=== PATIENT | female | born 1970 | race Caucasian/White ===

== ENCOUNTER 2017-01-24 19:16 | Emergency (ER) | payer BC ==
[~2017-01-24] VITALS: Ht 160 cm; Wt 80.6 kg
[~2017-01-24 19:16] MED LIST: AMOX1TAB43 PO; ATV1 PO; CYM/60 PO; PRED10TA PO; SNG10 PO
[2017-01-24 19:22] VITALS: TEMP 37; Ht 160 cm; Wt 80.6 kg
[2017-01-24] MEDS ORDERED: LISD20CA PO (19:46)
[2017-01-24] MEDS ORDERED: ZOLP5TAB PO (19:48)
[2017-01-24] MEDS ORDERED: SODIUM CHLORIDE 0.9% 1000ML 1,000 ML IV ONE (19:54)
[2017-01-24] MEDS ORDERED: SODIUM CHLORIDE 0.9% 1000ML 1,000 ML IV STA (19:54)
--- NOTE | 2017-01-24 19:57 | EMERGENCY ROOM VISIT NOTE ---
History Report prepared by Ra: Andrew Pina Under the Supervision of: Dr. Supa Salcedo M.D. First contact with patient: 19:47 Chief Complaint: RECTAL BLEEDING Stated Complaint: RECTAL BLEEDING, BACK WENT OUT History of Present Illness The patient is a 46 year old female who presents to the Emergency Room with complaints of worsening rectal bleeding that started earlier today. She says that she had a cholecystectomy last year, and ever since then, has been having bouts of diarrhea on-and-off ever since then. The patient notes that 2 months ago, she started having consistent diarrhea and ever since then her stool has only been diarrhea. She says that she called her primary care physician 2 weeks ago because she started having blood in her stool. The patient's tests all came back normal. She says that starting earlier today, she has been having dripping bright red blood in her stool. The patient then decided to come here. She notes that she has a [facility] appointment set up for a few days from now. She adds that she has been having low back pain and vaginal pain with intercourse recently. She denies any rectal pain, or vaginal discharge or bleeding. Source of History: patient, spouse/significant other, friend Onset: Earlier today Position: other (rectum) Quality: other (dripping bright red blood) Timing: worsening Associated Symptoms: + back pain, + diarrhea Note: Associated symptoms: Vaginal pain with intercourse. Denies rectal pain, vaginal discharge or bleeding. Review of Systems See HPI for pertinent positives & negatives. A total of 10 systems reviewed and were otherwise negative. Past Medical & Surgical Medical Problems: (1) No chronic diseases present Old medical records were reviewed. Nurse's notes were reviewed and I agree with. Family History FH: heart disease FHx: cancer Hypertension Kidney disease Social History Smoking Status: Never Smoker Drug Use: none Marital Status: Housing Status: lives with family Current/Historical Medications Scheduled Lisdexamfetamine Dimesylate (Vyvanse), 20 MG PO DAILY Lorazepam (Lorazepam), 2 MG PO HS Montelukast Sod (Montelukast Sodium), 10 MG PO QPM Zolpidem Tartrate (Ambien), 2.5 MG PO HS Scheduled PRN Oxycodone Immediate Rel Tab (Roxicodone Ir), 1-2 TAB PO Q4H PRN for Severe Pain Allergies Coded Allergies: Latex (Unverified Allergy, Unknown, RASH, 01/24/17) Tramadol (Verified Allergy, Unknown, makes me nuts, 01/24/17) Physical Exam Vital Signs Date Time Temp Pulse Resp B/P (MAP) Pulse Ox O2 Delivery O2 Flow Rate FiO2 01/24/17 23:41 83 16 125/87 99 01/24/17 22:49 80 16 145/85 96 Room Air 01/24/17 20:53 86 16 136/88 98 Room Air 01/24/17 19:22 37.0 113 18 132/82 96 Room Air Physical Exam General: Well developed well nourished non ill appearing middle aged female complaining of back pain with movement, otherwise in no acute distress, breathing comfortably on room air. Normal speech HEENT: Normal cephalic atraumatic. Pupils are equal round and reactive to light. Extraocular movements are intact. Oropharynx is pink with moist mucous membranes. No swelling of the mouth lips or tongue. Neck: Supple with a midline trachea. No meningeal signs or stiffness, no JVD or bruits. No Stridor. Chest: Clear to auscultation bilaterally. No wheezes or rhonchi. No increased work of breathing. Heart: regular rate and rhythm. Abdomen: Soft nontender, nondistended without rebound guarding or rigidity. Extremities: No cyanosis clubbing or edema. No calf tenderness or assymetry. Normal sensation in legs and buttocks. Rectal (performed in presence of a nurse head school custodian): External: small opening near rectum with tiny bit of possible pus expressed, no blood, no fluctuance. Internal: no significant tenderness or fluctuance, normal tone, scant stool which was trace positive Guaiac. Spine/Back. Non tender to palpation. No CVA tenderness Skin: Good turgor without rashes. Neurologic exam: Cranial nerves two through 12 are intact. Motor and sensation are intact and symmetrical throughout. Medical Decision & Procedures ER Provider Diagnostic Interpretation: CT results as stated below per my review and radiologist interpretation: CT OF THE ABDOMEN AND PELVIS WITH CONTRAST CLINICAL HISTORY: Rectal bleeding. Back pain. COMPARISON STUDY: None. TECHNIQUE: Following IV administration of 94 mL of Optiray-320, axial images of the abdomen and pelvis were obtained from the lung bases to the proximal femurs. Images were reviewed in the axial, sagittal, and coronal planes. IV contrast was administered without complication. A dose lowering technique was utilized adhering to the principles of ALARA. CT DOSE: 539.17 mGy.cm FINDINGS: Lung bases are clear. Note is made of a 4.4 x 4.1 cm hypervascular segment 7 hepatic lesion. A linear central hypodensity suggests a scar. There is no biliary ductal dilatation status post cholecystectomy. The spleen, adrenal glands and pancreas are unremarkable. There is no hydronephrosis. An 8 mm hypodense left renal lesion is too small to characterize but likely benign. The caliber of small and large bowel is normal. Sensitivity for detection of mucosal lesions is diminished given CT technique. The appendix is normal. There is sigmoid diverticulosis without evidence for acute diverticulitis. There is no lymphadenopathy. No suspicious osseous lesion is present. There is marked disc space narrowing with osteophytosis at L5-S1. IMPRESSION: 1. No acute process within the abdomen or pelvis. Normal appendix. 2. Sigmoid diverticulosis without evidence for acute diverticulitis. Suboptimal evaluation for mucosal lesions given CT technique. 3. Marked disc space narrowing at L5-S1. 4. 4.4 x 4.1 cm hypervascular segment 7 lesion with suspected central scar. This likely reflects focal nodular hyperplasia. A hemangioma could appear similar although is considered less likely. This lesion is likely benign however a follow-up nonemergent MRI of the liver is recommended. Electronically signed by: Juan Ramon Stern M.D. 01/24/2017 10:06 PM Dictated Date/Time: 01/24/2017 9:58 PM Laboratory Results 01/24/17 20:05 Red Blood Count 4.78, Mean Corpuscular Volume 84.9, Mean Corpuscular Hemoglobin 30.1, Mean Corpuscular Hemoglobin Concent 35.5, Mean Platelet Volume 9.0, Neutrophils (%) (Auto) 60.2, Lymphocytes (%) (Auto) 28.8, Monocytes (%) (Auto) 5.3, Eosinophils (%) (Auto) 4.8, Basophils (%) (Auto) 0.7, Neutrophils # (Auto) 6.16, Lymphocytes # (Auto) 2.95, Monocytes # (Auto) 0.54, Eosinophils # (Auto) 0.49, Basophils # (Auto) 0.07 01/24/17 20:05 Test 01/24/17 20:05 01/24/17 20:10 White Blood Count 10.23 K/uL (4.8-10.8) Red Blood Count 4.78 M/uL (4.2-5.4) Hemoglobin 14.4 g/dL (12.0-16.0) Hematocrit 40.6 % (37-47) Mean Corpuscular Volume 84.9 fL (80-100) Mean Corpuscular Hemoglobin 30.1 pg (25-34) Mean Corpuscular Hemoglobin Concent 35.5 g/dl (32-36) Platelet Count 378 K/uL (130-400) Mean Platelet Volume 9.0 fL (7.4-10.4) Neutrophils (%) (Auto) 60.2 % Lymphocytes (%) (Auto) 28.8 % Monocytes (%) (Auto) 5.3 % Eosinophils (%) (Auto) 4.8 % Basophils (%) (Auto) 0.7 % Neutrophils # (Auto) 6.16 K/uL (1.4-6.5) Lymphocytes # (Auto) 2.95 K/uL (1.2-3.4) Monocytes # (Auto) 0.54 K/uL (0.11-0.59) Eosinophils # (Auto) 0.49 K/uL (0-0.5) Basophils # (Auto) 0.07 K/uL (0-0.2) RDW Standard Deviation 45.6 fL (36.4-46.3) RDW Coefficient of Variation 14.6 % (11.5-14.5) Immature Granulocyte % (Auto) 0.2 % Immature Granulocyte # (Auto) 0.02 K/uL (0.00-0.02) Prothrombin Time 9.8 SECONDS (9.0-12.0) Prothromb Time International Ratio 0.9 (0.9-1.1) Activated Partial Thromboplast Time 27.5 SECONDS (21.0-31.0) Partial Thromboplastin Ratio 1.1 Anion Gap 7.0 mmol/L (3-11) Est Creatinine Clear Calc Drug Dose 88.3 ml/min Estimated GFR () 102.5 Estimated GFR (Non- 88.4 BUN/Creatinine Ratio 16.6 (10-20) Calcium Level 9.6 mg/dl (8.5-10.1) Total Bilirubin 0.1 mg/dl (0.2-1) Direct Bilirubin < 0.1 mg/dl (0-0.2) Aspartate Amino Transf (AST/SGOT) 36 U/L (15-37) Alanine Aminotransferase (ALT/SGPT) 74 U/L (12-78) Alkaline Phosphatase 64 U/L (45-117) Total Protein 7.4 gm/dl (6.4-8.2) Albumin 3.8 gm/dl (3.4-5.0) Lipase 188 U/L (73-393) Human Chorionic Gonadotropin, Qual NEG (NEG) Urine Color YELLOW Urine Appearance CLEAR (CLEAR) Urine pH 5.5 (4.5-7.5) Urine Specific [place] 1.020 (1.000-1.030) Urine Protein NEG (NEG) Urine Glucose (UA) NEG (NEG) Urine Ketones NEG (NEG) Urine Occult Blood NEG (NEG) Urine Nitrite NEG (NEG) Urine Bilirubin NEG (NEG) Urine Urobilinogen NEG (NEG) Urine Leukocyte Esterase SMALL (NEG) Urine WBC (Auto) 1-5 /hpf (0-5) Urine RBC (Auto) 0-4 /hpf (0-4) Urine Hyaline Casts (Auto) 1-5 /lpf (0-5) Urine Epithelial Cells (Auto) >30 /lpf (0-5) Urine Bacteria (Auto) NEG (NEG) Laboratory studies as stated above per my review. Medications Administered Medications (Trade) Dose Ordered Sig/[place] Route Start Time Stop Time Status Last Admin Dose Admin Sodium Chloride 1,000 ml @ 999 mls/hr Q1H1M STAT IV 01/24/17 19:54 01/24/17 20:54 DC 01/24/17 20:12 999 MLS/HR Sodium Chloride 1,000 ml @ 150 mls/hr Q6H40M ONCE IV 01/24/17 19:54 01/25/17 00:03 DC 01/24/17 22:20 150 MLS/HR Ondansetron HCl (Zofran Inj) 4 mg NOW STAT IV 01/24/17 21:02 01/24/17 21:04 DC 01/24/17 21:06 4 MG Morphine Sulfate (MoRPHine SULFATE INJ) 2 mg NOW STAT IV 01/24/17 21:02 01/24/17 21:04 DC 01/24/17 21:07 2 MG Morphine Sulfate (MoRPHine SULFATE INJ) 2 mg NOW STAT IV 01/24/17 22:56 01/24/17 22:57 DC 01/24/17 23:02 2 MG Oxycodone HCl (Roxicodone Immediate Rel 5MG Home Pack) 1 homepack UD ONCE PO 01/24/17 23:30 01/24/17 23:31 DC 01/24/17 23:35 1 HOMEPACK ED Course 1950: Past medical records reviewed. The patient was evaluated in room A11B, and a complete history and physical examination were performed. 1953: Ordered NSS 1000 ml @ 150 mls/hr IV, NSS 1000 ml @ 999 mls/hr IV. 2101: Ordered Morphine Sulfate Inj 2 mg IV, Zofran Inj 4 mg IV. 2103: I reevaluated the patient and ordered pain medicine for her. 2231: I reevaluated the patient and she feels more comfortable. 2299: I performed a rectal exam on the patient in the presence of a female head school custodian. 2306: I discussed the patient with Dr. Dina Ramírez GI. 6: I reevaluated the patient and she is resting. The patient verbally expressed understanding and agreement of the treatment plan. The patient will be discharged. Medical Decision Differentials include, but are not limited to; GI bleed, infection, anemia, colitis, spinal lumbar disc disease. This patient comes in as described above. She has 2 complaints. First is she' s been having bloody diarrhea for about 2 weeks. The second is low back pain after bending over yesterday, there was no trauma. In regards to her bloody stool, she's been seen by her doctor scheduled to see a GI specialist this coming week. She says she had stool studies and blood work that has been unremarkable according to the patient. Her abdomen is benign here. IV access established and multiple blood tests was obtained. She was hydrated with IV normal saline. She was given morphine 2 milligrams IV and Zofran 4 milligrams IV for pain management in regards her back and she did receive additional IV morphine. She has no white count or fever to suggest infection. She's not significantly anemic and has a hemoglobin 14.4. She's had no acute electrolyte or metabolic abnormalities. She's had nothing suggest UTI. CAT scan of her abdomen does not show any acute findings. She has a likely scar in her liver which will need follow-up. She does have disc space narrowing at L5-S1. She's had nothing to suggest cauda equina syndrome. On rectal exam, she is a small opening near her rectum which may be is a small amount of pus but it's not fluctuant or tender. It's possible was could be a fistula is possible and it could be where she was bleeding from this area and could be an irritated area. I did discuss it with the slasher operator that she's supposed to see next week and he will follow up with her. The patient use sitz baths. I'm going to give her a small prescription for OxyIR for her back pain that she can use one or 2 pills every 4-6 hours as needed. She was encouraged to return if: increasing pain or bleeding, worsening of symptoms, numbness or weakness, change in bowel or bladder function, any new problems or concerns. She was happy with the plan and was discharged to home. Medication Reconcilliation Current Medication List: was personally reviewed by me Blood Pressure Screening Patient's blood pressure: Elevated blood pressure Blood pressure disposition: Elevated BP felt to be situational Consults Time Called: 2299 Consulting Physician: Dr. Dina MARX Returned Call: [phone] I discussed the patient with Dr. Dina MARX. Impression Primary Impression: Rectal bleed Additional Impression: Back pain Scribe Attestation The scribe's documentation has been prepared under my direction and personally reviewed by me in its entirety. I confirm that the note above accurately reflects all work, treatment, procedures, and medical decision making performed by me. Departure Information Dispostion Home / Self-Care Prescriptions Oxycodone Immediate Rel Tab (ROXICODONE IR) 5 Mg Tab 1-2 TAB PO Q4H Y for Severe Pain, #24 TAB Prov: Supa Salcedo M.D. 01/24/17 Referrals Adam Norman M.D.([facility]) (PCP) Patient Instructions My [facility] Additional Instructions Rest. Drink plenty of fluids. Warm sits baths. For pain, use ibuprofen 400 mg every 6 hours, take with food For more severe pain, use OxyIR 5 mg, one or 2 pills every 4-6 hours as needed OxyIR may make you drowsy do not take before drinking, driving, working OxyIR could also constipate you Return if: Increasing pain or bleeding, fever chills, worsening symptoms, any new problems or concerns. Problem Qualifiers
[2017-01-24 20:21] LABS: BASO % 0.7 %; BASO ABS # 0.07 K/uL (0-0.2); COMPLETE YES; EOS % 4.8 %; HEMATOCRIT 40.6 % (37-47); IG% 0.2 %; LYMPH % 28.8 %; LYMPH ABS # 2.95 K/uL (1.2-3.4); MEAN CELL VOLUME 84.9 fL (80-100); MEAN CORPUSCULAR HEMOGLOBIN 30.1 pg (25-34); MEAN CORPUSCULAR HGB CONC 35.5 g/dl (32-36); MONO % 5.3 %; NEUT % 60.2 %; PLATELET COUNT 378 K/uL (130-400); RED BLOOD COUNT 4.78 M/uL (4.2-5.4); WHITE BLOOD COUNT 10.23 K/uL (4.8-10.8)
[2017-01-24 20:24] LABS: URINE APPEARANCE CLEAR (CLEAR); URINE BILIRUBIN NEG (NEG); URINE COLOR YELLOW; URINE EPITHELIAL CELL AUTO >30 /lpf (0-5); URINE NITRITE NEG (NEG); URINE PH 5.5 (4.5-7.5); UROBILINOGEN NEG (NEG)
[2017-01-24 20:32] LABS: MANUAL MICROSCOPIC REQUIRED? NO; REVIEW REQ? NO
[2017-01-24 20:34] LABS: INR 0.9 (0.9-1.1); PARTIAL THROMBOPLASTIN RATIO 1.1; PROTHROMBIN TIME (PATIENT) 9.8 SECONDS (9.0-12.0)
[2017-01-24 20:43] LABS: ALT/SGPT 74 U/L (12-78); BLOOD UREA NITROGEN 13 mg/dl (7-18); BUN/CREATININE RATIO 16.6 (10-20); CALCIUM 9.6 mg/dl (8.5-10.1); CARBON DIOXIDE 26 mmol/L (21-32); CHLORIDE 107 mmol/L (98-107); GLUCOSE 92 mg/dl (70-99); POTASSIUM 3.8 mmol/L (3.5-5.1); PREG INTERNAL NEGATIVE QC NEG CLEAR BACKGROUND; PREG INTERNAL POSITIVE QC POS CONTROL LINE; SODIUM 140 mmol/L (136-145)
[2017-01-24 20:46] LABS: ALKALINE PHOSPHATASE 64 U/L (45-117); AST/SGOT 36 U/L (15-37)
[2017-01-24] MEDS ORDERED: MoRPHine SULFATE 2 MG/ML CARP IV STA ×2 (21:02→22:56)
[2017-01-24] MEDS ORDERED: ONDANSETRON INJ 2 MG/ML 2 ML VIAL IV STA (21:02)
[2017-01-24] MEDS ORDERED: OPTIRAY 320 IV PRN (21:15)
--- NOTE | 2017-01-24 22:07 | DIAGNOSTIC IMAGING REPORT ---
CT OF THE ABDOMEN AND PELVIS WITH CONTRAST CLINICAL HISTORY: Rectal bleeding. Back pain. COMPARISON STUDY: None. TECHNIQUE: Following IV administration of 94 mL of Optiray-320, axial images of the abdomen and pelvis were obtained from the lung bases to the proximal femurs. Images were reviewed in the axial, sagittal, and coronal planes. IV contrast was administered without complication. A dose lowering technique was utilized adhering to the principles of ALARA. CT DOSE: 539.17 mGy.cm FINDINGS: Lung bases are clear. Note is made of a 4.4 x 4.1 cm hypervascular segment 7 hepatic lesion. A linear central hypodensity suggests a scar. There is no biliary ductal dilatation status post cholecystectomy. The spleen, adrenal glands and pancreas are unremarkable. There is no hydronephrosis. An 8 mm hypodense left renal lesion is too small to characterize but likely benign. The caliber of small and large bowel is normal. Sensitivity for detection of mucosal lesions is diminished given CT technique. The appendix is normal. There is sigmoid diverticulosis without evidence for acute diverticulitis. There is no lymphadenopathy. No suspicious osseous lesion is present. There is marked disc space narrowing with osteophytosis at L5-S1. IMPRESSION: 1. No acute process within the abdomen or pelvis. Normal appendix. 2. Sigmoid diverticulosis without evidence for acute diverticulitis. Suboptimal evaluation for mucosal lesions given CT technique. 3. Marked disc space narrowing at L5-S1. 4. 4.4 x 4.1 cm hypervascular segment 7 lesion with suspected central scar. This likely reflects focal nodular hyperplasia. A hemangioma could appear similar although is considered less likely. This lesion is likely benign however a follow-up nonemergent MRI of the liver is recommended. Electronically signed by: Juan Ramon Stern M.D. 01/24/2017 10:06 PM Dictated Date/Time: 01/24/2017 9:58 PM
[2017-01-24] MEDS ORDERED: OXYC1TAB3 PO (23:13)
[2017-01-24] MEDS ORDERED: OXYCODONE IR HOME PACK PO ONE (23:30)
[2017-01-24 23:41] VITALS: BP 125/87; PULSE 83; O2SAT 99
== END 2017-01-24 23:42 | disposition home or self-care (01) ==
LOC: C.EDB 19:17 → C.EDA 23:42
DX: K62.5 Hemorrhage of anus and rectum (principal); M54.9 Dorsalgia, unspecified; R19.7 Diarrhea, unspecified; Z90.49 Acquired absence of other specified parts of digestive tract; Z82.49 Family history of ischemic heart disease and other diseases of the circulatory system

== ENCOUNTER 2017-07-14 23:15 | Emergency (ER) | payer BC ==
[~2017-07-14] VITALS: Ht 160 cm; Wt 75.7 kg
[~2017-07-14 23:15] MED LIST changes: -AMOX1TAB43 PO; -CYM/60 PO; +LISD20CA PO; +OXYC1TAB3 PO; -PRED10TA PO; +ZOLP5TAB PO
[2017-07-14 23:19] VITALS: TEMP 36.5; Ht 160 cm; Wt 75.7 kg
[2017-07-14] MEDS ORDERED: MoRPHine SULFATE 4 MG/ML 1 ML CARP\\VIAL IV STA (23:25)
[2017-07-14] MEDS ORDERED: KETOROLAC TROMETHAMINE 30 MG/ML VIAL IV STA (23:25)
[2017-07-14] MEDS ORDERED: ONDANSETRON INJ 2 MG/ML 2 ML VIAL IV STA (23:25)
[2017-07-14] MEDS ORDERED: SODIUM CHLORIDE 0.9% 1000ML 1,000 ML IV STA (23:29)
[2017-07-14] MEDS ORDERED: OPTIRAY 320 IV PRN (23:45)
[2017-07-14] MEDS ORDERED: DULO-24 PO (23:48)
[2017-07-14] MEDS ORDERED: MULT-506 PO (23:48)
[2017-07-14 23:53] LABS: ISTAT CREATININE 0.7 mg/dl (0.6-1.3); ISTAT IONIZED CALCIUM 1.12 mmol/l (1.12-1.32); ISTAT POTASSIUM 3.7 mEq/L (3.3-5.0)
[2017-07-15] LABS: BASO % 0.3 %; BASO ABS # 0.05 K/uL (0-0.2); EOS ABS # 0.33 K/uL (0-0.5); HEMATOCRIT 38.6 % (37-47); HEMOGLOBIN 13.3 g/dL (12.0-16.0); IG# 0.04 K/uL (0.00-0.02); LYMPH % 19.8 %; MEAN CORPUSCULAR HEMOGLOBIN 29.3 pg (25-34); MEAN CORPUSCULAR HGB CONC 34.5 g/dl (32-36); MEAN PLATELET VOLUME 8.9 fL (7.4-10.4); MONO % 4.4 %; MONO ABS # 0.71 K/uL (0.11-0.59); NEUT % 73.3 %; NEUT ABS # 11.85 K/uL (1.4-6.5); PLATELET COUNT 366 K/uL (130-400); RED CELL DISTRIBUTION WIDTH CV 14.5 % (11.5-14.5); RED CELL DISTRIBUTION WIDTH SD 44.6 fL (36.4-46.3); WHITE BLOOD COUNT 16.18 K/uL (4.8-10.8)
[2017-07-15] MEDS ORDERED: HYDROmorphone INJ 1 MG/ML SYR IV STA
[2017-07-15 00:21] LABS: ALBUMIN 3.6 gm/dl (3.4-5.0); ALT/SGPT 33 U/L (12-78); BLOOD UREA NITROGEN 13 mg/dl (7-18); CARBON DIOXIDE 24 mmol/L (21-32); CREATININE 0.74 mg/dl (0.60-1.20); GLUCOSE 103 mg/dl (70-99); LIPASE 148 U/L (73-393); POTASSIUM 3.7 mmol/L (3.5-5.1); SODIUM 138 mmol/L (136-145)
[2017-07-15 00:24] LABS: ALKALINE PHOSPHATASE 74 U/L (45-117); AST/SGOT 14 U/L (15-37); TOTAL PROTEIN 7.8 gm/dl (6.4-8.2)
--- NOTE | 2017-07-15 01:13 | EMERGENCY ROOM VISIT NOTE ---
History First contact with patient: 23:22 Chief Complaint: ABDOMINAL PAIN Stated Complaint: LOWER BACK AND ABD Nursing Triage Summary: pt c/o left flank pain and abd pain. History of Present Illness The patient is a 47 year old female who presents to the Emergency Room with complaints of severe left flank pain and lower abdominal pain for the past day described as aching, 8 out of 10. Nothing makes it better or worse. Patient with some nausea. Patient denies chest pain, dyspnea, fever, chills, urinary symptoms, leg weakness. No injury to the area. No history kidney stones. Recent colonoscopy was negative per patient. Review of Systems See HPI for pertinent positives & negatives. A total of 10 systems reviewed and were otherwise negative. Past Medical/Surgical History Medical Problems: (1) No chronic diseases present Anxiety Family History FH: heart disease FHx: cancer Hypertension Kidney disease Social History Smoking Status: Current Every Day Smoker Drug Use: none Marital Status: Housing Status: lives with family Current/Historical Medications Scheduled Duloxetine HCl (Cymbalta), 1 CAP PO DAILY Lorazepam (Lorazepam), 2 MG PO HS Montelukast Sod (Montelukast Sodium), 10 MG PO QPM Multivitamin (Multivitamin), 1 TAB PO DAILY Physical Exam Vital Signs Date Time Temp Pulse Resp B/P (MAP) Pulse Ox O2 Delivery O2 Flow Rate FiO2 07/15/17 00:47 89 18 106/70 96 Room Air 07/14/17 23:19 36.5 108 22 124/87 97 Room Air Physical Exam VITALS: Vitals are noted on the nurse's note and reviewed by myself. Vital signs stable. GENERAL: White female who appears in pain, in no acute distress, nondiaphoretic , well-developed well-nourished. SKIN: The skin was without rashes, erythema, edema, or bruising. There is no tenting of the skin. Capillary reflex less than 2 seconds. HEAD: Normocephalic atraumatic. EARS: External auditory canals clear, tympanic membranes pearly lowe without erythema or effusion bilaterally. EYES: Pupils equal round and reactive to light and accommodation. Conjunctivae without injection, sclerae without icterus. Extraocular movements intact. NOSE: Patent, turbinates without inflammation or discharge. MOUTH: Mucous membranes moist. Pharynx without erythema or exudate. Uvula midline. Airway patent. Tongue does not deviate. NECK: Supple without nuchal rigidity. No lymphadenopathy. No thyromegaly. Cervical spine is nontender. No JVD. HEART: Regular rate and rhythm without murmurs gallops or rubs. LUNGS: Clear to auscultation bilaterally without wheezes, rales or rhonchi. No dullness to percussion. No retractions or accessory muscle use. ABDOMEN: Positive bowel sounds x 4. Normal tympanic percussion. Soft, tender to palpation lower abdomen, no CVA tenderness, protuberant, obese, no masses or organomegaly. Arias sign negative. No guarding or rebound tenderness. MUSCULOSKELETAL: No muscle atrophy, erythema, or edema noted. NEURO: Patient was alert and oriented to person place and time. Normal sensation to light and sharp touch. No focal neurological deficits. Medical Decision & Procedures Laboratory Results 07/14/17 23:35 Red Blood Count 4.54, Mean Corpuscular Volume 85.0, Mean Corpuscular Hemoglobin 29.3, Mean Corpuscular Hemoglobin Concent 34.5, Mean Platelet Volume 8.9, Neutrophils (%) (Auto) 73.3, Lymphocytes (%) (Auto) 19.8, Monocytes (%) (Auto) 4.4, Eosinophils (%) (Auto) 2.0, Basophils (%) (Auto) 0.3, Neutrophils # (Auto) 11.85, Lymphocytes # (Auto) 3.20, Monocytes # (Auto) 0.71, Eosinophils # (Auto) 0.33, Basophils # (Auto) 0.05 07/14/17 23:35 Test 07/14/17 23:35 07/14/17 23:41 07/15/17 00:40 White Blood Count 16.18 K/uL (4.8-10.8) Red Blood Count 4.54 M/uL (4.2-5.4) Hemoglobin 13.3 g/dL (12.0-16.0) Hematocrit 38.6 % (37-47) Mean Corpuscular Volume 85.0 fL (80-100) Mean Corpuscular Hemoglobin 29.3 pg (25-34) Mean Corpuscular Hemoglobin Concent 34.5 g/dl (32-36) Platelet Count 366 K/uL (130-400) Mean Platelet Volume 8.9 fL (7.4-10.4) Neutrophils (%) (Auto) 73.3 % Lymphocytes (%) (Auto) 19.8 % Monocytes (%) (Auto) 4.4 % Eosinophils (%) (Auto) 2.0 % Basophils (%) (Auto) 0.3 % Neutrophils # (Auto) 11.85 K/uL (1.4-6.5) Lymphocytes # (Auto) 3.20 K/uL (1.2-3.4) Monocytes # (Auto) 0.71 K/uL (0.11-0.59) Eosinophils # (Auto) 0.33 K/uL (0-0.5) Basophils # (Auto) 0.05 K/uL (0-0.2) RDW Standard Deviation 44.6 fL (36.4-46.3) RDW Coefficient of Variation 14.5 % (11.5-14.5) Immature Granulocyte % (Auto) 0.2 % Immature Granulocyte # (Auto) 0.04 K/uL (0.00-0.02) Est Creatinine Clear Calc Drug Dose 91.6 ml/min Estimated GFR () 111.8 Estimated GFR (Non- 96.5 BUN/Creatinine Ratio 17.9 (10-20) Calcium Level 9.0 mg/dl (8.5-10.1) Total Bilirubin 0.4 mg/dl (0.2-1) Direct Bilirubin < 0.1 mg/dl (0-0.2) Aspartate Amino Transf (AST/SGOT) 14 U/L (15-37) Alanine Aminotransferase (ALT/SGPT) 33 U/L (12-78) Alkaline Phosphatase 74 U/L (45-117) Total Protein 7.8 gm/dl (6.4-8.2) Albumin 3.6 gm/dl (3.4-5.0) Lipase 148 U/L (73-393) Human Chorionic Gonadotropin, Qual NEG (NEG) Bedside Hemoglobin 14.3 g/dl (12.0-16.0) Bedside Hematocrit 42 % (37-47) Bedside Sodium 140 mEq/L (135-144) Bedside Potassium 3.7 mEq/L (3.3-5.0) Bedside Chloride 105 mEq/L (101-112) Bedside Total CO2 23 mEq/l (24-31) Anion Gap 17.0 mmol/L (16-25) Bedside Blood Urea Nitrogen 13 mg/dl (7-18) Bedside Creatinine 0.7 mg/dl (0.6-1.3) Bedside Glucose (other) 108 mg/dl (70-99) Bedside Ionized Calcium (Power) 1.12 mmol/l (1.12-1.32) Urine Color YELLOW Urine Appearance CLEAR (CLEAR) Urine pH 8.5 (4.5-7.5) Urine Specific [place] > 1.045 (1.000-1.030) Urine Protein NEG (NEG) Urine Glucose (UA) NEG (NEG) Urine Ketones NEG (NEG) Urine Occult Blood NEG (NEG) Urine Nitrite NEG (NEG) Urine Bilirubin NEG (NEG) Urine Urobilinogen NEG (NEG) Urine Leukocyte Esterase NEG (NEG) Medications Administered Medications (Trade) Dose Ordered Sig/[place] Route Start Time Stop Time Status Last Admin Dose Admin Ketorolac Tromethamine (Toradol Inj) 30 mg NOW STAT IV 07/14/17 23:25 07/14/17 23:27 DC 07/14/17 23:42 30 MG Morphine Sulfate (MoRPHine SULFATE INJ) 4 mg NOW STAT IV 07/14/17 23:25 07/14/17 23:27 DC 07/14/17 23:41 4 MG Ondansetron HCl (Zofran Inj) 4 mg NOW STAT IV 07/14/17 23:25 07/14/17 23:27 DC 07/14/17 23:41 4 MG Sodium Chloride 1,000 ml @ 999 mls/hr Q1H1M STAT IV 07/14/17 23:29 07/15/17 00:29 DC 07/14/17 23:41 999 MLS/HR Hydromorphone HCl (Dilaudid Inj) 1 mg NOW STAT IV 07/15/17 00:00 07/15/17 00:02 DC 07/15/17 00:16 1 MG ED Course Prior records/ancillary studies reviewed. Triage Nursing notes reviewed. Additional history obtained from family. The patient's history was concerning for abdominal pain. Differential diagnosis: Etiologies such as appendicitis, diverticulitis, PUD, biliary pathology, UTI, pancreatitis, obstruction, mesenteric ischemia, aortic pathology, infections, inflammatory bowel disease, renal colic, as well as others were entertained. Physical examination findings: As above. ER treatment provided: morphine, Zofran, Dilaudid, IV fluids On reassessment the patient felt better. Diagnostics interpreted by me: The labs revealed leukocytosis. Stable H&H Imaging studies: CT ABDOMEN & PELVIS With Contrast: Comparison with 01/24/17 CT abdomen pelvis. Fluid within nondistended loops of small bowel and within stomach without bowel wall thickening or surrounding inflammation can be normal or can be seen with gastroenteritis in the right clinical setting. No appendicitis, inflammatory changes of bowel or bowel obstruction. Prior cholecystectomy. No free fluid. No free air. Aorta, liver, spleen, pancreas, and kidneys are unremarkable. 4.3 cm mass with hypodense central scar located at the posterior segment of the right hepatic lobe. This was described previously and is unchanged. Dilated left gonadal and parametrial vessels, nonspecific.. Radiologist: Lester Paul M.D. Exam and history seem consistent with abdominal pain could be related to early gastroenteritis. Patient felt better after being medicated as above. No other acute findings are noted on CT imaging. She is advised to rest, stay well- hydrated take medications as directed. She is advised follow-up family care in a few days here in the ER sooner for chest pain, difficulty breathing, abdominal pain, worsening signs or symptoms or as needed. Patient is tolerating fluids. She is ambulating without difficulties. By the evaluation outlined above emergent etiologies such as appendicitis, diverticulitis, PUD, biliary pathology, UTI, pancreatitis, obstruction, mesenteric ischemia, aortic pathology, inflammatory bowel disease, renal colic, as well as others were deemed relatively unlikely. The pt informed about the findings as listed above. All questions were answered and pleased with the treatment. Return instructions were outlined and the patient was discharged in stable condition. Outpatient prescription management: amalia lee Referral: The patient was referred back to their primary care physician for follow-up in 2 to 3 days for a recheck of the current condition. Case reviewed with my attending Medical Decision as above Medication Reconcilliation Current Medication List: was personally reviewed by me Blood Pressure Screening Patient's blood pressure: Normal blood pressure Impression Primary Impression: Acute gastroenteritis Additional Impression: Lower abdominal pain Departure Information Dispostion Home / Self-Care Condition GOOD Referrals No Doctor, Assigned (PCP) Patient Instructions My [facility] [employer] Additional Instructions DO NOT drive, drink alcohol, operate machinery, or perform dangerous activities today. You were given medications in the ER that can affect your ability to safely function or operate a vehicle. Ibuprofen(Motrin, Advil) may be used for fever or pain. Use 600mg every six hours as needed. Take with food. Avoid using more than 2400mg in a 24 hour period. Do not use 2400mg per day for more than three consecutive days without physician direction. Prolonged inappropriate use can lead to stomach upset or ulcers. (AND/OR) Acetaminophen(Tylenol) may be used for fever or pain. Use 1000mg every six hours as needed. Avoid using more than 3000mg in a 24 hour period. Bentyl 10 m tablet every 6 hours as needed for abdominal cramping. Zofran 4mg: Take one every six hours as needed for nausea. Avoid alcohol, operating machinery or dangerous equipment, working on ladders or roofs, DRIVING , or situations where being under the influence may be dangerous. Rest and drink plenty of fluids as tolerated. Slow sips of water or sports drinks are recommended instead of large amounts all at once. Continue current medications. Once your stomach is settled start with a clear liquid diet (jello, soup broth, etc.) and then advance as tolerated. You should avoid full, heavy meals for about 24 hrs from the time your symptoms resolved. Return to the ER immediately for worsening or persistent abdominal pain, vomiting, fevers, chest pains, difficulty breathing, black or bloody stools, worsening of your condition, or as needed. Follow up with your primary physician in 1-2 days for a recheck of your current condition. Problem Qualifiers
[2017-07-15] MEDS ORDERED: ONDANSETRON HOME PACK 4MG OD TAB PO ONE (01:15)
[2017-07-15] MEDS ORDERED: BENTYL HOME PACK 10 MG VIAL PO ONE (01:15)
[2017-07-15 01:29] VITALS: BP 131/92; PULSE 89; O2SAT 96
--- NOTE | 2017-07-15 06:52 | DIAGNOSTIC IMAGING REPORT ---
CT ABD/PELVIS IV CONTRAST ONLY CLINICAL HISTORY: severe lower abd pain COMPARISON STUDY: 01/24/2017 TECHNIQUE: Following the IV administration of 119 mL of [id number]-320, CT scan of the abdomen and pelvis was performed from the lung bases to the proximal femurs. Images are reviewed in the axial, sagittal, and coronal planes. IV contrast was administered without complication. A dose lowering technique was utilized adhering to the principles of ALARA. CT DOSE: 393.82 mGy.cm FINDINGS: Lower chest: There are minimal dependent atelectatic changes. Liver: There is a 4 cm hypervascular mass within the posterior aspect of the right lobe of the liver with apparent central scar. This remain similar to the preceding study. Gallbladder: Surgically absent Spleen: Normal in size and attenuation. Pancreas: Unremarkable. Adrenal glands: Unremarkable. Kidneys: There is a 7 mm left renal hypodensity, likely representing a cyst. There is no hydronephrosis. Bowel: There are no transition zones indicate bowel obstruction. The appendix appears normal. There are scattered colonic diverticula present. There is mild recto sigmoid wall thickening with subtle infiltration of the surrounding fat. This could indicate mild diverticulitis. Peritoneum: There is no intraperitoneal free air or abdominal ascites. Vasculature: The abdominal aorta is normal in course and caliber. Adenopathy: None. Pelvic viscera: There is a 17 mm left ovarian follicle. Skeletal structures: No destructive osseous lesions are seen. IMPRESSION: 1. 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 While nonspecific, the appearance favors focal nodular hyperplasia. An MRI could be obtained in follow-up for confirmation and further evaluation 2. No evidence of bowel obstruction. No evidence of free air 3. Colonic diverticulosis. Mildly thickened bowel loop at the rectosigmoid junction with minimal infiltration of the surrounding fat. This likely indicates mild diverticulitis. Clinical follow-up is advocated. This finding will be called as this was not described in the preliminary report. Electronically signed by: Juan Cortez M.D. 07/15/2017 6:51 AM Dictated Date/Time: 07/15/2017 6:43 AM
== END 2017-07-15 01:30 | disposition home or self-care (01) ==
LOC: C.EDB 23:16
DX: K52.9 Noninfective gastroenteritis and colitis, unspecified (principal); R10.30 Lower abdominal pain, unspecified; F17.200 Nicotine dependence, unspecified, uncomplicated; Z98.890 Other specified postprocedural states; Z82.49 Family history of ischemic heart disease and other diseases of the circulatory system; F41.9 Anxiety disorder, unspecified; Z79.899 Other long term (current) drug therapy

== ENCOUNTER 2022-11-12 18:21 | Inpatient (IN) ==
[2022-11-12] MEDS ORDERED: MoRPHine SULFATE 4 MG/ML 1 ML CARP\\VIAL IV STA ×2 (18:46→19:48)
[2022-11-12] MEDS ORDERED: ONDANSETRON INJ 2 MG/ML 2 ML VIAL IV STA (18:46)
--- NOTE | 2022-11-12 19:01 | Emergency Department Note ---
History of Present Illness General Chief complaint: Back Injury/Pain Stated complaint: SEVERE BACK PAIN Time Seen by Provider: 11/12/22 18:38 History of Present Illness Maximum Pain Intensity: 10 This is a 52-year-old female that presents to the emergency department via private vehicle with complaints of "severe back pain". The patient notes that she has been experiencing left-sided low back pain that radiates down her left leg for almost 3 weeks now. No known trauma or injury. She states that she notes progressive left low back pain and left leg weakness. She denies any bowel or bladder incontinence. No numbness or tingling in genital region. No infectious symptoms. No abdominal pain. No history of L-spine surgery. Patient notes that she is otherwise healthy. She is scheduled to see Dr. Goodman of spine tomorrow in the outpatient setting. She notes recent steroid injection of the spine this past . Home Medications Medication Instructions Recorded Confirmed Type buspirone 10 mg tablet 10 mg PO BID 03/22/19 11/12/22 History montelukast 10 mg tablet 10 mg PO QPM 03/22/19 11/12/22 History (Singulair) oxycodone 5 mg tablet 5 mg PO Q6H PRN pain #12 tabs 10/31/22 11/12/22 Rx ondansetron 4 mg disintegrating 4 mg PO Q6 PRN nausea and vomiting 11/01/22 11/12/22 Rx tablet #14 tabs bupropion HCl 150 mg tablet,12 hr 150 mg PO BID 11/12/22 11/12/22 History sustained-release cyclobenzaprine 10 mg tablet 10 mg PO HS PRN muscle spasm 11/12/22 11/12/22 History dextroamphetamine-amphetamine 10 10 mg PO QPM 11/12/22 11/12/22 History mg tablet dicyclomine 20 mg tablet 20 mg PO QID PRN Abdominal Pain 11/12/22 11/12/22 History gabapentin 100 mg capsule 100 mg PO TID 11/12/22 11/12/22 History lisdexamfetamine 40 mg capsule 40 mg PO DAILY 11/12/22 11/12/22 History (Vyvanse) melatonin 10 mg tablet 20 mg PO HS PRN Sleep 11/12/22 11/12/22 History multivitamin 1 tab PO DAILY 11/12/22 11/12/22 History omeprazole 20 mg capsule,delayed 20 mg PO DAILY 11/12/22 11/12/22 History release oxycodone-acetaminophen 10 mg-325 1 tab PO Q6H PRN Pain 11/12/22 11/12/22 History mg tablet quetiapine 50 mg tablet 100 mg PO HS 11/12/22 11/12/22 History valacyclovir 500 mg tablet 500 mg PO Q12H PRN as directed 11/12/22 11/12/22 History zolpidem 12.5 mg tablet,extended 12.5 mg PO HS PRN Sleep 11/12/22 11/12/22 History release,multiphase Allergies Allergy/AdvReac Type Severity Reaction Status Date / Time tramadol Allergy Severe SHORT OF Verified 11/12/22 19:19 BREATH hydromorphone [From Dilaudid] Allergy Intermediate RASH/VOMITI Verified 11/12/22 19:19 NG latex Allergy Intermediate ITCHING Verified 11/12/22 19:19 Past Med/Surg History Medical History Depression Insomnia Social History Smoking Status: Former smoker Second Hand Exposure: No; Do You Dip or Chew Tobacco: No; Tobacco Cessation Education Requested by Patient: No Hx Alcohol Use: No Hx Substance Use: No Preferred Language: Setswana Communication Ability: Effective Corporate Tutor Required: No Beliefs That Will Affect Care: None Current Living Situation: Spouse Current Living Situation Comment: lives in split level home with Other Information That Helps Us Care for You: No Feels Safe at Home: Yes Safety Concerns: Feels Safe At This Time Assistive Devices: Walker Review of Systems A total of 10 systems reviewed and were otherwise negative Physical Exam Vital Signs Vital Signs - 24 hr 11/12/22 18:30 11/12/22 19:29 11/12/22 19:29 Temperature 36.3 C L Temperature Source Temporal Artery Scan Pulse Rate 121 H Pulse Rate [Apical] 92 H Pulse Rate from SpO2 Sensor Pulse Rhythm [Apical] Regular Respiratory Rate 24 Respiratory Effort / Characteristics Non-Labored Spontaneous Respiratory Depth Normal Respiratory Pattern Regular Blood Pressure 134/88 Blood Pressure [Right Arm] 102/66 Blood Pressure Mean 103 Blood Pressure Mean [Right Arm] 78 Blood Pressure Position [Right Arm] Lying Pulse Oximetry 96 98 96 Oxygen Delivery Method Room Air Room Air Room Air Sepsis Recent Fever Within 48 Hours No Sepsis New/Unexplained Change in Mental Status No Sepsis Action Taken by Nursing No Action Required 11/12/22 19:40 11/12/22 19:33 Temperature Temperature Source Pulse Rate 89 93 H Pulse Rate [Apical] Pulse Rate from SpO2 Sensor 92 H Pulse Rhythm [Apical] Respiratory Rate 24 Respiratory Effort / Characteristics Respiratory Depth Respiratory Pattern Blood Pressure Blood Pressure [Right Arm] Blood Pressure Mean Blood Pressure Mean [Right Arm] Blood Pressure Position [Right Arm] Pulse Oximetry 99 Oxygen Delivery Method Sepsis Recent Fever Within 48 Hours Sepsis New/Unexplained Change in Mental Status Sepsis Action Taken by Nursing VITAL SIGNS - Vital signs and triage nursing notes were reviewed. Stable and afebrile. GENERAL - 52-year-old female appearing her stated age who is in no acute distress. Appears to be in pain. She is laying on her right side in the position on the examination bed. Communicates well with provider and answers questions appropriately. SKIN - Without rashes. No meningeal or petechial rash. There is a small amount of erythema just to the left of the mid L-spine region. Patient has this was secondary to ice/lidocaine patch. HEAD - NC/AT. EYES - Sclera anicteric. NECK - No nuchal rigidity. LUNGS - Chest wall symmetric without accessory muscle use, intercostals retractions, or central cyanosis. Normal vesicular breath sounds CTA B/L. No wheezes, rales, or rhonchi appreciated. CARDIAC - RRR with S1/S2. No murmur, rubs, or gallops appreciated. ABDOMEN - Abdominal contour normal without pulsations or visible masses. EXTREMITIES - No clubbing or peripheral cyanosis. Patient able to plantarflex and dorsiflex the bilateral feet/ankles. Decreased strength appreciated to the left lower extremity with associated pain. NEUROLOGIC -sensory intact throughout the lower extremities without deficit. PSYCH - A&O, and cooperates fully with examiner. Pt is very pleasant and interacts well with examiner. Course Administered Medications Acetaminophen (Acetaminophen 500 Mg Tab) 1,000 mg PO Q8H [facility] Stop: 12/12/22 22:38 Last Admin: 11/12/22 23:22 Dose: 1,000 mg Documented By: JORGE Bupropion HCl (Bupropion Sr 150 Mg Tabcr) 150 mg PO BID [facility] Stop: 12/12/22 22:38 Last Admin: 11/12/22 23:22 Dose: Not Given Documented By: JORGE Buspirone HCl (Buspirone 5 Mg Tab) 10 mg PO BID [facility] Stop: 12/12/22 22:38 Last Admin: 11/12/22 23:22 Dose: Not Given Documented By: JORGE Diazepam (Diazepam 2 Mg Tablet) 2 mg PO Q8H [facility] Stop: 12/12/22 22:38 Last Admin: 11/12/22 23:22 Dose: 2 mg Documented By: JORGE Docusate Sodium (Docusate Sodium 100 Mg Cap) 100 mg PO BID [facility] Stop: 12/12/22 22:38 Last Admin: 11/12/22 23:22 Dose: 100 mg Documented By: JORGE Gabapentin (Gabapentin 100 Mg Cap) 100 mg PO TID [facility] Stop: 12/12/22 22:38 Last Admin: 11/12/22 23:22 Dose: 100 mg Documented By: JORGE Montelukast Sodium (Montelukast Sodium 10 Mg Tablet) 10 mg PO QPM [facility] Stop: 12/12/22 22:38 Last Admin: 11/12/22 23:22 Dose: 10 mg Documented By: JORGE Quetiapine Fumarate (Quetiapine Fumarate 100 Mg Tablet) 100 mg PO HS [facility] Stop: 12/12/22 22:38 Last Admin: 11/12/22 23:21 Dose: 100 mg Documented By: JORGE Discontinued Medications Diazepam (Diazepam 2 Mg Tablet) 2 mg PO NOW ONE Stop: 11/12/22 20:06 Last Admin: 11/12/22 20:10 Dose: 2 mg Documented By: SAUL Morphine Sulfate (Morphine Sulfate 4 Mg/Ml 1 Ml Carp\\Vial) 4 mg IV NOW STA Stop: 11/12/22 18:47 Last Admin: 11/12/22 19:21 Dose: 4 mg Documented By: SAUL Morphine Sulfate (Morphine Sulfate 4 Mg/Ml 1 Ml Carp\\Vial) 4 mg IV NOW STA Stop: 11/12/22 19:49 Last Admin: 11/12/22 19:55 Dose: 4 mg Documented By: MICHELLE Ondansetron HCl (Ondansetron Inj 2 Mg/Ml 2 Ml Vial) 4 mg IV NOW STA Stop: 11/12/22 18:47 Last Admin: 11/12/22 19:21 Dose: 4 mg Documented By: SAUL Medical Decision Making Laboratory Data 11/12/22 19:33 11/12/22 19:33 Lab Results 11/12/22 11/12/22 Range/Units 19:33 19:33 WBC 12.44 H (4.8-10.8) K/ul RBC 5.37 (4.20-5.40) M/uL Hgb 15.0 (12.0-16.0) g/dl Hct 44.9 (37.0-47.0) % MCV 83.6 (80.0-100.0) fL MCH 27.9 (25.0-34.0) pg MCHC 33.4 (32.0-36.0) g/dL RDW Std Deviation 42.1 (36.4-46.3) fL RDW Coeff of Tony 13.8 (11.5-14.5) % Plt Count 347 (130-400) K/uL MPV 9.4 (9.4-12.4) fL Immature Gran % (Auto) 0.2 % Neut % (Auto) 66.4 % Lymph % (Auto) 27.8 % Lane % (Auto) 3.8 % Eos % (Auto) 1.1 % Baso % (Auto) 0.7 % Neut # (Auto) 8.25 H (1.40-6.50) K/uL Lymph # (Auto) 3.46 H (1.2-3.4) K/uL Lane # (Auto) 0.47 (0.11-0.59) K/uL Eos # (Auto) 0.14 (0-0.50) K/uL Baso # (Auto) 0.09 (0-0.2) K/uL Immature Gran # (Auto) 0.03 (0.01-0.20) K/uL Sodium 140 (136-145) mmol/L Potassium 3.7 (3.5-5.1) mmol/L Chloride 106 (98-107) mmol/L Carbon Dioxide 22 (21-32) mmol/L Anion Gap 12 H (3-11) BUN 24 H (6-23) mg/dl Creatinine 0.75 (0.6-1.2) mg/dl Est Cr Clr Drug Dosing Not Reportable Est GFR ( Amer) 106.2 ml/min Est GFR (Non-Af Amer) 91.6 ml/min BUN/Creatinine Ratio 32.0 H (10-20) Glucose 104 H (70-99(Fasting)) mg/dl Calcium 9.7 (8.6-10.3) mg/dl Magnesium 2.0 (1.7-2.4) mg/dl Total Bilirubin 0.3 (0.2-1.0) mg/dl AST 19 (13-39) U/L ALT 38 (7-52) U/L Alkaline Phosphatase 51 (34-104) U/L Total Protein 7.0 (6.0-8.3) gm/dl Albumin 4.3 (3.4-5.0) gm/dl Globulin 2.7 (2.5-4.0) gm/dl Albumin/Globulin Ratio 1.6 (0.9-2) Imaging Data Radiologist's Impression: Chest X-Ray 11/12/22 19:22 SINGLE VIEW CHEST CLINICAL HISTORY: Tachycardia. FINDINGS: An AP, portable, upright chest radiograph is compared to study dated 05/25/2016. The examination is degraded by portable technique and apical lordotic positioning. The cardiomediastinal silhouette is unremarkable. There is mild chronic elevation of the right hemidiaphragm. The lungs and pleural spaces are clear. No pneumothorax is seen. The bony thorax is grossly intact. Cholecystectomy clips are seen in the right upper quadrant. IMPRESSION: No active disease in the chest. ACT 112: Negative or not required by law. Electronically signed by: Chadwick Hong M.D. 11/12/2022 7:55 PM MDM Narrative Patient was seen and evaluated as above in room D06. Review was performed of triage nursing notes and vital signs. After obtaining a thorough history and physical examination the above work up was performed. Patient presents to us today with progressively worsening left-sided low back pain/lumbar radiculopathy. Although the patient appears to be in pain she overall clinically is well-appearing and nontoxic. No infectious symptoms. There is no urinary or bowel incontinence. No numbness or tingling in genital region. Options of care were discussed with the patient. IV access was established. Labs were drawn. There is mild leukocytosis 12.44. No anemia. No emergent metabolic disturbance. COVID testing negative. I do not believe that repeat MRI of the L-spine at this time is needed. I did review her previous MRI of the L-spine. I did discuss presentation with Dr. Goodman of spine. Plan will be for medical admission and potential surgical intervention tomorrow. Recommendation was to hold off on steroids preoperatively as the will be given near time of surgery/postsurgery. At the present time we will manage her pain. IV morphine was ordered for pain. IV Zofran was ordered for any potential nausea with the morphine. She tolerated this medicine well. She did require a second dose for pain control. Case discussed with the hospitalist service. Please refer to further documentation regarding her stay. In the evaluation and treatment of this patient the following differential jillian gnosis entertained: Fracture, dislocation, subluxation, cauda equina syndrome, AAA, diverticulitis, appendicitis, torsion, osteomyelitis, piriformis syndrome, strain, sprain, among others. Impression & Plan Left lumbar radiculopathy Discharge Plan Visit Data Chief Complaint: Back Injury/Pain Stated Complaint: SEVERE BACK PAIN ED Provider: Collin Morton ED Midlevel Provider: Byron Garcia Discharge Problem: Left lumbar radiculopathy Patient Disposition: Admitted As Inpatient Condition: Good Discharge Instructions Interventions: ED Discharge Assessment Last Done: 11/12/22 22:08
--- NOTE | 2022-11-12 19:56 | XRay Report ---
SINGLE VIEW CHEST CLINICAL HISTORY: Tachycardia. FINDINGS: An AP, portable, upright chest radiograph is compared to study dated 05/25/2016. The examin ation is degraded by portable technique and apical lordotic positioning. The cardiomediastinal silhou ette is unremarkable. There is mild chronic elevation of the right hemidiaphragm. The lungs and pleur al spaces are clear. No pneumothorax is seen. The bony thorax is grossly intact. Cholecystectomy clip s are seen in the right upper quadrant. IMPRESSION: No active disease in the chest. ACT 112: Negative or not required by law. Electronically signed by: Chadwick Hong M.D. 11/12/2022 7:55 PM
[2022-11-12] MEDS ORDERED: diazePAM 2 MG TABLET PO ONE (20:05)
--- NOTE | 2022-11-12 20:10 | History & Physical Report ---
Date of Service November 12, 2022 Assessment & Plan (1) Left lumbar radiculopathy: (2) Sciatica: (3) Low back pain: Plan: continue morphine, oxycodone, tylenol prn for pain (4) Insomnia: Plan: continue seroquel, zolpidem for insomnia (5) Depression: Plan: Continue Buproprion,buspirone. Admission and Anticipated Discharge Date Admission Date: Admit to [facility]. Vitals as per protocol Activity bedrest with bathroom privileges. Morphine, oxycodone, Tylenol as needed for pain. Dvt prophylaxis: continue scds await for preop ekg . Surgical consult Dr Goodman, cheri past midnight for procedure History of Present Illness Chief Complaint: Severe back pain for the past 2 weeks Primary Care Provider: Andressa Lees DO 52 year old female with medical history of depression on multiple meds, presented to the er with severe back pain , states it is a10/10. Patients pain symptoms were not relieved with oxycodone q 6 hourly. she has come to the er multiple times over the past 2 weeks . denies any bowel or bladder incontinence Lower back pain is radiating down to the left lower extremity. the symptoms have gotten worse and hence is been evaluated for procedure At time of evaluation in the er she was started on morphine to relieve her symptoms Denies any chestpain, shorness of breath . Allergies Allergy/AdvReac Type Severity Reaction Status Date / Time tramadol Allergy Severe SHORT OF Verified 11/12/22 19:19 BREATH hydromorphone [From Dilaudid] Allergy Intermediate RASH/VOMITI Verified 11/12/22 19:19 NG latex Allergy Intermediate ITCHING Verified 11/12/22 19:19 Home Medications Medication Instructions Recorded Confirmed Type buspirone 10 mg tablet 10 mg PO BID 03/22/19 11/12/22 History montelukast 10 mg tablet 10 mg PO QPM 03/22/19 11/12/22 History (Singulair) oxycodone 5 mg tablet 5 mg PO Q6H PRN pain #12 tabs 10/31/22 11/12/22 Rx ondansetron 4 mg disintegrating 4 mg PO Q6 PRN nausea and vomiting 11/01/22 11/12/22 Rx tablet #14 tabs bupropion HCl 150 mg tablet,12 hr 150 mg PO BID 11/12/22 11/12/22 History sustained-release cyclobenzaprine 10 mg tablet 10 mg PO HS PRN muscle spasm 11/12/22 11/12/22 History dextroamphetamine-amphetamine 10 10 mg PO QPM 11/12/22 11/12/22 History mg tablet dicyclomine 20 mg tablet 20 mg PO QID PRN Abdominal Pain 11/12/22 11/12/22 History gabapentin 100 mg capsule 100 mg PO TID 11/12/22 11/12/22 History lisdexamfetamine 40 mg capsule 40 mg PO DAILY 11/12/22 11/12/22 History (Vyvanse) melatonin 10 mg tablet 20 mg PO HS PRN Sleep 11/12/22 11/12/22 History multivitamin 1 tab PO DAILY 11/12/22 11/12/22 History omeprazole 20 mg capsule,delayed 20 mg PO DAILY 11/12/22 11/12/22 History release oxycodone-acetaminophen 10 mg-325 1 tab PO Q6H PRN Pain 11/12/22 11/12/22 History mg tablet quetiapine 50 mg tablet 100 mg PO HS 11/12/22 11/12/22 History valacyclovir 500 mg tablet 500 mg PO Q12H PRN as directed 11/12/22 11/12/22 History zolpidem 12.5 mg tablet,extended 12.5 mg PO HS PRN Sleep 11/12/22 11/12/22 History release,multiphase Past Med/Surg History Medical History (Updated 11/12/22 @ 20:21 by Yonathan Moore MD) Contusion of multiple sites Contusion of multiple sites Depression Fall Insomnia Social History Smoking Status: Never smoker Preferred Language: Austrian Feels Safe at Home: Yes Review of Systems Review of Systems: as noted in h/p rest reviewed as negative Physical Exam Physical Exam: Neuro: AAO times 3, PERRLA, HEENT: head normocephalic, moist mucus membranes CV: S1/S2,no murmurs Resp: Lungs CTA in all siegel. On RA GI: Abdomen soft non tender Musculoskeletal: severe back pain with pain radiating down to the left lower extremity Skin: (-) rashes , (-) erythema. Psych: anxious Results & Data Results & Data Vital Signs (Past 12 Hours) Vital Signs Temp Pulse Pulse Resp BP BP Pulse Ox 11/12/22 19:40 89 11/12/22 19:29 96 11/12/22 19:29 92 H 24 102/66 98 11/12/22 18:30 36.3 C L 121 H 134/88 96 O2 Del Method 11/12/22 19:40 11/12/22 19:29 Room Air 11/12/22 19:29 Room Air 11/12/22 18:30 Room Air Diagnostic Findings Impressions Chest X-Ray 11/12/22 19:22 SINGLE VIEW CHEST CLINICAL HISTORY: Tachycardia. FINDINGS: An AP, portable, upright chest radiograph is compared to study dated 05/25/2016. The examination is degraded by portable technique and apical lordotic positioning. The cardiomediastinal silhouette is unremarkable. There is mild chronic elevation of the right hemidiaphragm. The lungs and pleural spaces are clear. No pneumothorax is seen. The bony thorax is grossly intact. Cholecystectomy clips are seen in the right upper quadrant. IMPRESSION: No active disease in the chest. ACT 112: Negative or not required by law. Electronically signed by: Chadwick Hong M.D. 11/12/2022 7:55 PM Chest X-Ray 11/12/22 19:22 SINGLE VIEW CHEST CLINICAL HISTORY: Tachycardia. FINDINGS: An AP, portable, upright chest radiograph is compared to study dated 05/25/2016. The examination is degraded by portable technique and apical lordotic positioning. The cardiomediastinal silhouette is unremarkable. There is mild chronic elevation of the right hemidiaphragm. The lungs and pleural spaces are clear. No pneumothorax is seen. The bony thorax is grossly intact. Cholecystectomy clips are seen in the right upper quadrant. IMPRESSION: No active disease in the chest. ACT 112: Negative or not required by law. Electronically signed by: Chadwick Hong M.D. 11/12/2022 7:55 PM Medications Administered Home Medications Medication Instructions Recorded Confirmed Last Taken buspirone 10 mg tablet 10 mg PO BID 03/22/19 11/12/22 Unknown montelukast 10 mg tablet 10 mg PO QPM 03/22/19 11/12/22 Unknown (Singulair) oxycodone 5 mg tablet 5 mg PO Q6H PRN pain #12 tabs 10/31/22 11/12/22 Unknown ondansetron 4 mg disintegrating 4 mg PO Q6 PRN nausea and vomiting 11/01/22 11/12/22 Unknown tablet #14 tabs bupropion HCl 150 mg tablet,12 hr 150 mg PO BID 11/12/22 11/12/22 Unknown sustained-release cyclobenzaprine 10 mg tablet 10 mg PO HS PRN muscle spasm 11/12/22 11/12/22 Unknown dextroamphetamine-amphetamine 10 10 mg PO QPM 11/12/22 11/12/22 Unknown mg tablet gabapentin 100 mg capsule 100 mg PO TID 11/12/22 11/12/22 11/12/22 08:00 lisdexamfetamine 40 mg capsule 40 mg PO DAILY 11/12/22 11/12/22 Unknown (Vyvanse) melatonin 10 mg tablet 20 mg PO HS PRN Sleep 11/12/22 11/12/22 Unknown multivitamin 1 tab PO DAILY 11/12/22 11/12/22 Unknown omeprazole 20 mg capsule,delayed 20 mg PO DAILY 11/12/22 11/12/22 Unknown release oxycodone-acetaminophen 10 mg-325 1 tab PO Q6H PRN Pain 11/12/22 11/12/22 11/12/22 mg tablet quetiapine 50 mg tablet 100 mg PO HS 11/12/22 11/12/22 11/11/22 zolpidem 12.5 mg tablet,extended 12.5 mg PO HS PRN Sleep 11/12/22 11/12/22 Unknown release,multiphase Code Status & VTE Plan Code Status Patient is full code. VTE Prophylaxis Plan VTE Prophylaxis will be ordered: Yes (2) Sciatica Laterality: left Qualified Code(s): M54.32 - Sciatica, left side (3) Low back pain Back pain laterality: left Chronicity: acute Sciatica laterality: sciatica of left side Sciatica presence: with sciatica Qualified Code(s): M54.42 - Lumbago with sciatica, left side
[2022-11-12 20:23] LABS: Basophils # (auto) 0.09 K/uL (0-0.2); Basophils % (auto) 0.7 %; Eosinophils # (auto) 0.14 K/uL (0-0.50); Eosinophils % (auto) 1.1 %; Hematocrit (blood only) 44.9 % (37.0-47.0); Immature Granulocytes # (auto) 0.03 K/uL (0.01-0.20); Immature Granulocytes % (auto) 0.2 %; Lymphocytes # (auto) 3.46 K/uL (1.2-3.4); Lymphocytes % (auto) 27.8 %; Mean Corpuscular Hemoglobin 27.9 pg (25.0-34.0); Mean Corpuscular Hgb Conc 33.4 g/dL (32.0-36.0); Mean Corpuscular Volume 83.6 fL (80.0-100.0); Mean Platelet Volume 9.4 fL (9.4-12.4); Monocytes # (auto) 0.47 K/uL (0.11-0.59); Monocytes % (auto) 3.8 %; Neutrophils # (auto) 8.25 K/uL (1.40-6.50); Neutrophils % (auto) 66.4 %; Platelet Count 347 K/uL (130-400); RDW Coefficient of Variation 13.8 % (11.5-14.5); RDW Standard Deviation 42.1 fL (36.4-46.3); Red Blood Count 5.37 M/uL (4.20-5.40); White Blood Count 12.44 K/ul (4.8-10.8)
[2022-11-12 20:26] LABS: Alanine Aminotransferase 38 U/L (7-52); Albumin Globulin Ratio 1.6 (0.9-2); Albumin Level 4.3 gm/dl (3.4-5.0); Alkaline Phosphatase 51 U/L (34-104); Anion Gap 12 (3-11); Aspartate Aminotransferase 19 U/L (13-39); Bilirubin,Total 0.3 mg/dl (0.2-1.0); Blood Urea Nitrogen 24 mg/dl (6-23); Calcium 9.7 mg/dl (8.6-10.3); Carbon Dioxide 22 mmol/L (21-32); Chloride 106 mmol/L (98-107); Est GFR (African American) 106.2 ml/min; Est GFR (Non-African American) 91.6 ml/min; Globulin 2.7 gm/dl (2.5-4.0); Glucose 104 mg/dl (70-99(Fasting)); Potassium 3.7 mmol/L (3.5-5.1); Sodium 140 mmol/L (136-145)
[2022-11-12] MEDS ORDERED: ONDANSETRON INJ 2 MG/ML 2 ML VIAL IV PRN (22:39)
[2022-11-12] MEDS ORDERED: ACETAMINOPHEN 325 MG TAB PO PRN (22:39)
[2022-11-12] MEDS: QUEtiapine FUMARATE 100 MG TABLET PO SCH (23:21)
[2022-11-12] MEDS: GABAPENTIN 100 MG CAP PO SCH (23:22)
[2022-11-12] MEDS: MONTELUKAST SODIUM 10 MG TABLET PO SCH (23:22)
[2022-11-12] MEDS: busPIRone 5 MG TAB PO SCH (23:22)
[2022-11-12] MEDS: buPROPion SR 150 MG TABCR PO SCH (23:22)
[2022-11-12] MEDS: ACETAMINOPHEN 500 MG TAB PO SCH (23:22)
[2022-11-12] MEDS: diazePAM 2 MG TABLET PO SCH (23:22)
[2022-11-12] MEDS: DOCUSATE SODIUM 100 MG CAP PO SCH (23:22)
[2022-11-13] MEDS: MoRPHine SULFATE 4 MG/ML 1 ML CARP\\VIAL IV PRN ×5 (00:15→22:03)
[2022-11-13] MEDS: oxyCODONE HCL IR 5 MG TAB (IMMEDIATE RELEASE) PO PRN ×5 (01:13→20:44)
[2022-11-13] MEDS: diazePAM 2 MG TABLET PO SCH ×3 (05:42→22:02)
[2022-11-13] MEDS: ACETAMINOPHEN 500 MG TAB PO SCH ×3 (05:43→22:08)
[2022-11-13 06:11] LABS: Appearance Urine Clear (Clear); Bilirubin Urine Negative (Negative); Blood Urine Negative (Negative); Color Urine Dark Yellow; Glucose Urine UA Negative (Negative); Ketones Urine Negative (Negative); Leukocyte Esterase Urine Negative (Negative); Nitrite Urine Negative (Negative); Protein Urine Negative (Negative); Specific Gravity Urine 1.023 (1.000-1.030); Urobilinogen Urine Negative (Negative)
[2022-11-13 08:06] LABS: Hematocrit (blood only) 41.4 % (37.0-47.0); Hemoglobin 14.2 g/dl (12.0-16.0); Mean Corpuscular Hemoglobin 28.3 pg (25.0-34.0); Mean Corpuscular Hgb Conc 34.3 g/dL (32.0-36.0); Mean Corpuscular Volume 82.6 fL (80.0-100.0); Mean Platelet Volume 9.3 fL (9.4-12.4); Platelet Count 296 K/uL (130-400); RDW Standard Deviation 41.9 fL (36.4-46.3); Red Blood Count 5.01 M/uL (4.20-5.40)
[2022-11-13 08:22] LABS: BUN Creatinine Ratio 30.7 (10-20); Calcium 8.8 mg/dl (8.6-10.3); Creatinine Clr Calc Pharmacy 88.9 ml/min; Est GFR (African American) 106.2 ml/min; Est GFR (Non-African American) 91.6 ml/min; Potassium 4.1 mmol/L (3.5-5.1)
--- NOTE | 2022-11-13 08:33 | Orthopedic Consultation ---
Date of Consultation November 13, 2022 Assessment & Plan (1) Lumbar disc herniation with radiculopathy: MRI lumbar spine dated 11/01/2022 demonstrates evidence of nucleus pulposus L3-L4 with a fragment migrating cephalad affecting the exiting L3 nerve root on the left. There is advanced disc degeneration to space collapse at L5-S1. Assessment lumbar disc condition with radiculopathy. Plan at this time patient has had incapacitating radiculopathy with progressive neuro deficit for 4 weeks. She failed an attempted an epidural injection. She is unable to work or ambulate now recommend surgical invention. Discussion regarding surgery with this would involve. My plan would be to attempt a lumbar laminotomy L3-L4 on the left with excision of herniated free fragment. She does understand that if there is recurrent disc herniation or if unable to access all the fragments we may need to perform complete facetectomy and fusion. Response was counseled terms of in detail. This time she is n.p.o. we will try for surgery later today in light of her severe pain and limitations. History of Present Illness Reason for Consultation: Left leg pain and weakness Attending Physician: Haritha Stout, History of Present Illness This a very pleasant 52-year-old female that said approximately 4 weeks of severe left leg pain and is essentially Bedridden. She has been able to work. She had an epidural injection last that provided a few days of relief but the symptoms returned to the original severity on Saturday. She presents to the emergency room with secondary to pain and weakness. Pain begins at lumbosacral junction buttock rating into the left anterior lateral thigh to the knee. She describes it as explosive pain into the left knee. The right lower extremity asymptomatic. She has marked difficulty with ambulation secondary to quadricep weakness on the left. Allergies Allergy/AdvReac Type Severity Reaction Status Date / Time tramadol Allergy Severe SHORT OF Verified 11/12/22 19:19 BREATH hydromorphone [From Dilaudid] Allergy Intermediate RASH/VOMITI Verified 11/12/22 19:19 NG latex Allergy Intermediate ITCHING Verified 11/12/22 19:19 Home Medications Medication Instructions Recorded Confirmed Type buspirone 10 mg tablet 10 mg PO BID 03/22/19 11/12/22 History montelukast 10 mg tablet 10 mg PO QPM 03/22/19 11/12/22 History (Sissy) oxycodone 5 mg tablet 5 mg PO Q6H PRN pain #12 tabs 10/31/22 11/12/22 Rx ondansetron 4 mg disintegrating 4 mg PO Q6 PRN nausea and vomiting 11/01/22 11/12/22 Rx tablet #14 tabs bupropion HCl 150 mg tablet,12 hr 150 mg PO BID 11/12/22 11/12/22 History sustained-release cyclobenzaprine 10 mg tablet 10 mg PO HS PRN muscle spasm 11/12/22 11/12/22 History dextroamphetamine-amphetamine 10 10 mg PO QPM 11/12/22 11/12/22 History mg tablet dicyclomine 20 mg tablet 20 mg PO QID PRN Abdominal Pain 11/12/22 11/12/22 History gabapentin 100 mg capsule 100 mg PO TID 11/12/22 11/12/22 History lisdexamfetamine 40 mg capsule 40 mg PO DAILY 11/12/22 11/12/22 History (Carrie) melatonin 10 mg tablet 20 mg PO HS PRN Sleep 11/12/22 11/12/22 History multivitamin 1 tab PO DAILY 11/12/22 11/12/22 History omeprazole 20 mg capsule,delayed 20 mg PO DAILY 11/12/22 11/12/22 History release oxycodone-acetaminophen 10 mg-325 1 tab PO Q6H PRN Pain 11/12/22 11/12/22 History mg tablet quetiapine 50 mg tablet 100 mg PO HS 11/12/22 11/12/22 History valacyclovir 500 mg tablet 500 mg PO Q12H PRN as directed 11/12/22 11/12/22 History zolpidem 12.5 mg tablet,extended 12.5 mg PO HS PRN Sleep 11/12/22 11/12/22 History release,multiphase Patient History Medical History Depression Insomnia Social History Smoking Status: Former smoker Second Hand Exposure: No; Do You Dip or Chew Tobacco: No; Tobacco Cessation Education Requested by Patient: No Hx Alcohol Use: No Hx Substance Use: No Preferred Language: Qatari Communication Ability: Effective Jail Guard Required: No Beliefs That Will Affect Care: None Current Living Situation: Spouse Current Living Situation Comment: lives in split level home with Other Information That Helps Us Care for You: No Feels Safe at Home: Yes Safety Concerns: Feels Safe At This Time Assistive Devices: Walker Physical Exam Physical Exam: On exam patient is in obvious distress. She prefers to lie in a position. She exhibits reasonable +5-5 bilateral plantarflexion dorsiflexion with significant quadricep deficit on the left 3/5 compared to 5/5 on the right. There is sensory deficits on the left as well. He is reflexes diminished. Results & Data Vital Signs (Past 12 Hours) Vital Signs Temp Pulse Pulse Pulse Resp BP BP 11/13/22 07:27 36.8 C 93 H 16 101/66 11/12/22 22:20 36.6 C 92 H 18 145/86 H 11/12/22 22:39 36.6 C 92 H 18 145/86 H 11/12/22 22:08 100 H 20 117/71 11/12/22 21:32 102 H 18 117/71 11/12/22 21:00 106 H 21 102/66 11/12/22 20:30 99 H 23 Pulse Ox O2 Del Method 11/13/22 07:27 99 Room Air 11/12/22 22:20 99 Room Air 11/12/22 22:39 99 Room Air 11/12/22 22:08 100 11/12/22 21:32 100 Room Air 11/12/22 21:00 100 11/12/22 20:30 100
[2022-11-13] MEDS: DOCUSATE SODIUM 100 MG CAP PO SCH ×2 (09:20→20:43)
[2022-11-13] MEDS: PANTOprazole 40 MG TAB PO SCH (09:20)
[2022-11-13] MEDS: GABAPENTIN 100 MG CAP PO SCH ×3 (09:20→20:43)
[2022-11-13] MEDS: busPIRone 5 MG TAB PO SCH ×2 (09:22→20:43)
[2022-11-13] MEDS: buPROPion SR 150 MG TABCR PO SCH ×2 (09:23→20:43)
[2022-11-13] MEDS: POLYETHYLENE (MIRALAX) 17 GM PACK PO SCH (09:42)
--- NOTE | 2022-11-13 12:34 | Anesthesiology Consultation ---
Date of Service November 13, 2022 Assessment & Plan Chart Review Chart Review: Acceptable Risk for Surgery and Patient NOT seen in Pre Admission Testing Consults Requested none ASA ASA2 Proposed Anesthesia Anesthesia Type: General History Surgery Operation Date: 11/13/22 10:10 Proposed Procedures p L3-L4 Left Lumbar Laminectomy - Saravanan Goodman DO Height/Weight Height: 5 ft 3 in Weight: 81.8 kg Allergies Allergy/AdvReac Type Severity Reaction Status Date / Time tramadol Allergy Severe SHORT OF Verified 11/12/22 19:19 BREATH hydromorphone [From Dilaudid] Allergy Intermediate RASH/VOMITI Verified 11/12/22 19:19 NG latex Allergy Intermediate ITCHING Verified 11/12/22 19:19 Medications Home Medications Medication Instructions Recorded Confirmed Last Taken buspirone 10 mg tablet 10 mg PO BID 03/22/19 11/12/22 Unknown montelukast 10 mg tablet 10 mg PO QPM 03/22/19 11/12/22 Unknown (Singulair) oxycodone 5 mg tablet 5 mg PO Q6H PRN pain #12 tabs 10/31/22 11/12/22 Unknown ondansetron 4 mg disintegrating 4 mg PO Q6 PRN nausea and vomiting 11/01/22 11/12/22 Unknown tablet #14 tabs bupropion HCl 150 mg tablet,12 hr 150 mg PO BID 11/12/22 11/12/22 Unknown sustained-release cyclobenzaprine 10 mg tablet 10 mg PO HS PRN muscle spasm 11/12/22 11/12/22 Unknown dextroamphetamine-amphetamine 10 10 mg PO QPM 11/12/22 11/12/22 Unknown mg tablet dicyclomine 20 mg tablet 20 mg PO QID PRN Abdominal Pain 11/12/22 11/12/22 Unknown gabapentin 100 mg capsule 100 mg PO TID 11/12/22 11/12/22 11/12/22 08:00 lisdexamfetamine 40 mg capsule 40 mg PO DAILY 11/12/22 11/12/22 Unknown (Vyvanse) melatonin 10 mg tablet 20 mg PO HS PRN Sleep 11/12/22 11/12/22 Unknown multivitamin 1 tab PO DAILY 11/12/22 11/12/22 Unknown omeprazole 20 mg capsule,delayed 20 mg PO DAILY 11/12/22 11/12/22 Unknown release oxycodone-acetaminophen 10 mg-325 1 tab PO Q6H PRN Pain 11/12/22 11/12/22 11/12/22 mg tablet quetiapine 50 mg tablet 100 mg PO HS 11/12/22 11/12/22 11/11/22 valacyclovir 500 mg tablet 500 mg PO Q12H PRN as directed 11/12/22 11/12/22 Unknown zolpidem 12.5 mg tablet,extended 12.5 mg PO HS PRN Sleep 11/12/22 11/12/22 Unknown release,multiphase Active Medications Generic Name Dose Route Start Last Admin Trade Name Freq PRN Reason Stop Dose Admin Acetaminophen 650 mg 11/12/22 22:39 11/13/22 10:55 Acetaminophen 325 Mg Tab PO 12/12/22 22:38 650 mg Q4H PRN Administration pain/fever Acetaminophen 1,000 mg 11/12/22 22:39 11/13/22 05:43 Acetaminophen 500 Mg Tab PO 12/12/22 22:38 1,000 mg Q8H GIFTY Administration Bupropion HCl 150 mg 11/12/22 22:39 11/13/22 09:23 Bupropion Sr 150 Mg Tabcr PO 12/12/22 22:38 Not Given BID GIFTY Buspirone HCl 10 mg 11/12/22 22:39 11/13/22 09:22 Buspirone 5 Mg Tab PO 12/12/22 22:38 Not Given BID GIFTY Diazepam 2 mg 11/12/22 22:39 11/13/22 05:42 Diazepam 2 Mg Tablet PO 12/12/22 22:38 2 mg Q8H GIFTY Administration Docusate Sodium 100 mg 11/12/22 22:39 11/13/22 09:20 Docusate Sodium 100 Mg Cap PO 12/12/22 22:38 100 mg BID GIFTY Administration Gabapentin 100 mg 11/12/22 22:39 11/13/22 09:20 Gabapentin 100 Mg Cap PO 12/12/22 22:38 100 mg TID GIFTY Administration Miscellaneous 1 each 11/13/22 08:00 11/13/22 07:43 Lisdexamfetamine [Vyvanse]: Order Awaiting Action N/A 12/13/22 07:59 Not Given QS GIFTY Montelukast Sodium 10 mg 11/12/22 22:39 11/12/22 23:22 Montelukast Sodium 10 Mg Tablet PO 12/12/22 22:38 10 mg QPM GIFTY Administration Morphine Sulfate 4 mg 11/12/22 22:39 11/13/22 12:19 Morphine Sulfate 4 Mg/Ml 1 Ml Carp\Vial IV 11/26/22 22:38 4 mg Q4H PRN Administration Pain (6,7,8,9,10) Oxycodone HCl 5 mg 11/12/22 22:39 11/13/22 10:56 Oxycodone Hcl Ir 5 Mg Tab (Immediate Release) PO 11/26/22 22:38 5 mg Q4H PRN Administration MODERATE Pain (4,5,6) & Pre PT Pantoprazole Sodium 40 mg 11/13/22 09:00 11/13/22 09:20 Pantoprazole 40 Mg Tab PO 12/13/22 08:59 40 mg DAILY GIFTY Administration Polyethylene Glycol 17 gm 11/13/22 09:00 11/13/22 09:42 Polyethylene (Miralax) 17 Gm Pack PO 12/13/22 08:59 Not Given DAILY GIFTY Quetiapine Fumarate 100 mg 11/12/22 22:39 11/12/22 23:21 Quetiapine Fumarate 100 Mg Tablet PO 12/12/22 22:38 100 mg HS GIFTY Administration Past Medical History Medical History Depression Insomnia Exercise / Class Metabolic Activity II 4-5 Yardwork/Stairs/Walk up hill Past Anesthesia History No Hx of Anesthesia Complications and No Family Hx of Anesthesia Complications History of PONV No Hx of PONV and No Hx of Motion Sickness Social History Smoking Status: Former smoker tobacco type: cigarettes Do You Dip or Chew Tobacco: No Hx Alcohol Use: No Hx Substance Use: No Physical Exam Vital Signs Last Vital Signs Temp 36.8 C 11/13/22 07:27 Pulse 93 H 11/13/22 07:27 Resp 16 11/13/22 07:27 BP 101/66 11/13/22 07:27 Pulse Ox 99 11/13/22 07:27 O2 Del Method Room Air 11/13/22 07:27 Testing Laboratory Results 11/13/22 07:40 11/13/22 07:40 Urine Color Dark Yellow 11/13/22 05:55 Urine Appearance Clear (Clear) 11/13/22 05:55 Urine pH 5.0 (4.5-7.5) 11/13/22 05:55 Ur Specific [place] 1.023 (1.000-1.030) 11/13/22 05:55 Urine Protein Negative (Negative) 11/13/22 05:55 Urine Glucose (UA) Negative (Negative) 11/13/22 05:55 Urine Ketones Negative (Negative) 11/13/22 05:55 Urine Nitrite Negative (Negative) 11/13/22 05:55 Ur Leukocyte Esterase Negative (Negative) 11/13/22 05:55 Blood Type A Positive 11/13/22 07:40 Antibody Screen NEGATIVE 11/13/22 07:40 Electrocardiogram Date: 11/12/22 Findings: + NSR @ (@ 87) Chest X-Ray Date: 11/12/22 Findings: + NAD
[2022-11-13] MEDS ORDERED: AMPHETAMINE ASP/SULF/DEXTRAMPH 10 MG TAB PO SCH (13:00)
--- NOTE | 2022-11-13 16:25 | Hospitalist Progress Note ---
Date of Service November 13, 2022 Assessment & Plan (1) Lumbar disc herniation with radiculopathy: Plan: Plan for lumbar surgery per ortho spine later today. Cont supportive care with continue morphine, oxycodone, tylenol prn for pain (2) Insomnia: Plan: Likely 2/2 severe pain. Continue seroquel, zolpidem for insomnia cautiously. (3) Depression: Plan: chronic, stable. Continue Buproprion,buspirone per home regimen. SCDs/ambulation-DVT chemoprophylaxis contraindicated with upcomign back surgery Full Code Dispo-to home in next 2-3 days. PT/OT will be ordered by orthopedic spine surgeon post operatively DO [facility] Ad[facility] and Anticipated Discharge Date Admission Date: November 12, 2022 Subjective 52-year-old female with 2 weeks of left-sided pain. She reports Percocet use and has been bedbound for 2 weeks. Movement is severely limited secondary to pain and discomfort. She reports diazepam has helped. She is awaiting surgery with Dr. Goodman later this afternoon. Review of Systems Review of Systems: All systems reviewed negative except as indicated above. Physical Exam Physical Exam: CONSTITUTIONAL: WNWD, vitals as above, generally NAD EYES: normal conjunctivae, no scleral icterus ENT: external ear and nose normal, oropharynx clear NECK: trachea midline RESPIRATORY: clear to auscultation bilaterally, no crackles, rales or wheezes, normal respiratory effort CARDIOVASCULAR: regular rate and rhythm, S1 and 2 heard without murmurs, gallops or rubs, no JVD, no peripheral edema CHEST: inspection of chest was normal GASTROINTESTINAL: soft, nontender, ND, no guarding MUSCULOSKELETAL: limited exam as she is unable to move her legs or move around on the bed /2 severe pain, +NVI SKIN: warm and dry NEUROLOGIC: CN 2-12 grossly intact, no sensory deficit, normal cognition, normal speech, no tremor PSYCHIATRIC: alert cooperative and oriented to person, place and time. Euthymic mood, makes good eye contact, language grossly intact, recent and remote memory grossly intact. Results & Data Results & Data Vital Signs (Past 12 Hours) Vital Signs Temp Pulse Resp BP Pulse Ox O2 Del Method 11/13/22 15:18 36.9 C 77 14 114/76 99 Room Air 11/13/22 07:27 36.8 C 93 H 16 101/66 99 Room Air Laboratory Results Short CBC 11/12/22 11/13/22 Range/Units 19:33 07:40 WBC 12.44 H 9.80 (4.8-10.8) K/ul Hgb 15.0 14.2 (12.0-16.0) g/dl Hct 44.9 41.4 (37.0-47.0) % Plt Count 347 296 (130-400) K/uL BMP 11/12/22 11/13/22 19:33 07:40 Sodium 140 140 Potassium 3.7 4.1 Chloride 106 107 Carbon Dioxide 22 25 BUN 24 H 23 Creatinine 0.75 0.75 Glucose 104 H 90 Calcium 9.7 8.8 Liver Function 11/12/22 Range/Units 19:33 Total Bilirubin 0.3 (0.2-1.0) mg/dl AST 19 (13-39) U/L ALT 38 (7-52) U/L Alkaline Phosphatase 51 (34-104) U/L Albumin 4.3 (3.4-5.0) gm/dl Urine 11/13/22 Range/Units 05:55 Urine Color Dark Yellow Urine Appearance Clear (Clear) Urine pH 5.0 (4.5-7.5) Ur Specific [place] 1.023 (1.000-1.030) Urine Protein Negative (Negative) Urine Glucose (UA) Negative (Negative) Medications Administered Current Inpatient Medications Acetaminophen (Acetaminophen 325 Mg Tab) 650 mg PO Q4H PRN PRN Reason: pain/fever Stop: 12/12/22 22:38 Last Admin: 11/13/22 10:55 Dose: 650 mg Acetaminophen (Acetaminophen 500 Mg Tab) 1,000 mg PO Q8H [facility] Stop: 12/12/22 22:38 Last Admin: 11/13/22 05:43 Dose: 1,000 mg Amphetamine/Dextroamphetamine (Amphetamine Asp/Sulf/Dextramph 10 Mg Tab) 10 mg PO DAILY@1300 [facility] Stop: 11/27/22 12:59 Last Admin: 11/13/22 15:25 Dose: Not Given Bupropion HCl (Bupropion Sr 150 Mg Tabcr) 150 mg PO BID GIFTY Stop: 12/12/22 22:38 Last Admin: 11/13/22 09:23 Dose: Not Given Buspirone HCl (Buspirone 5 Mg Tab) 10 mg PO BID [facility] Stop: 12/12/22 22:38 Last Admin: 11/13/22 09:22 Dose: Not Given Diazepam (Diazepam 2 Mg Tablet) 2 mg PO Q8H GIFTY Stop: 12/12/22 22:38 Last Admin: 11/13/22 15:28 Dose: 2 mg Docusate Sodium (Docusate Sodium 100 Mg Cap) 100 mg PO BID [facility] Stop: 12/12/22 22:38 Last Admin: 11/13/22 09:20 Dose: 100 mg Gabapentin (Gabapentin 100 Mg Cap) 100 mg PO TID [facility] Stop: 12/12/22 22:38 Last Admin: 11/13/22 15:22 Dose: 100 mg Miscellaneous (Lisdexamfetamine [Vyvanse]: Order Awaiting Action) 1 each N/A QS [facility] Stop: 12/13/22 07:59 Last Admin: 11/13/22 07:43 Dose: Not Given Montelukast Sodium (Montelukast Sodium 10 Mg Tablet) 10 mg PO QPM [facility] Stop: 12/12/22 22:38 Last Admin: 11/12/22 23:22 Dose: 10 mg Morphine Sulfate (Morphine Sulfate 4 Mg/Ml 1 Ml Carp\Vial) 4 mg IV Q4H PRN PRN Reason: Pain (6,7,8,9,10) Stop: 11/26/22 22:38 Last Admin: 11/13/22 12:19 Dose: 4 mg Ondansetron HCl (Ondansetron Inj 2 Mg/Ml 2 Ml Vial) 4 mg IV Q6H PRN PRN Reason: Nausea Stop: 12/12/22 22:38 Oxycodone HCl (Oxycodone Hcl Ir 5 Mg Tab (Immediate Release)) 5 - 10 mg PO Q4H PRN PRN Reason: Breakthrough Pain Stop: 11/26/22 22:38 Pantoprazole Sodium (Pantoprazole 40 Mg Tab) 40 mg PO DAILY [facility] Stop: 12/13/22 08:59 Last Admin: 11/13/22 09:20 Dose: 40 mg Polyethylene Glycol (Polyethylene (Miralax) 17 Gm Pack) 17 gm PO DAILY [facility] Stop: 12/13/22 08:59 Last Admin: 11/13/22 09:42 Dose: Not Given Quetiapine Fumarate (Quetiapine Fumarate 100 Mg Tablet) 100 mg PO [facility] Stop: 12/12/22 22:38 Last Admin: 11/12/22 23:21 Dose: 100 mg
[2022-11-13] MEDS: MONTELUKAST SODIUM 10 MG TABLET PO SCH (20:43)
[2022-11-13] MEDS: QUEtiapine FUMARATE 100 MG TABLET PO SCH (20:44)
[2022-11-14] MEDS: oxyCODONE HCL IR 5 MG TAB (IMMEDIATE RELEASE) PO PRN ×4 (01:24→23:17)
[2022-11-14] MEDS: MoRPHine SULFATE 4 MG/ML 1 ML CARP\\VIAL IV PRN ×3 (04:40→20:14)
--- NOTE | 2022-11-14 05:37 | Electrocardiogram Report ---
Test Reason : Blood Pressure : / mmHG Vent. Rate : 087 BPM Atrial Rate : 087 BPM P-R Int : 154 ms QRS Dur : 074 ms QT Int : 386 ms P-R-T Axes : 052 027 071 degrees QTc Int : 464 ms Normal sinus rhythm Normal ECG When compared with ECG of 25-MAY-2016 21:31, No significant change was found Confirmed by Jarred Strong ([id number]) on 11/14/2022 5:37:07 AM Referred By: REFERRED SELF Confirmed By:Jarred Strong
[2022-11-14] MEDS: ACETAMINOPHEN 500 MG TAB PO SCH ×3 (06:23→21:31)
[2022-11-14] MEDS: diazePAM 2 MG TABLET PO SCH ×3 (06:24→21:31)
[2022-11-14 06:34] LABS: Hematocrit (blood only) 42.4 % (37.0-47.0); Hemoglobin 13.9 g/dl (12.0-16.0); Mean Corpuscular Hemoglobin 27.9 pg (25.0-34.0); Mean Corpuscular Hgb Conc 32.8 g/dL (32.0-36.0); Mean Corpuscular Volume 85.1 fL (80.0-100.0); Mean Platelet Volume 9.3 fL (9.4-12.4); Platelet Count 272 K/uL (130-400); RDW Standard Deviation 43.2 fL (36.4-46.3); Red Blood Count 4.98 M/uL (4.20-5.40); White Blood Count 8.03 K/ul (4.8-10.8)
[2022-11-14 06:49] LABS: Pregnancy Test, Serum Negative (Negative)
[2022-11-14 06:52] LABS: Calcium 8.7 mg/dl (8.6-10.3); Creatinine Clr Calc Pharmacy 83.3 ml/min; Est GFR (African American) 98.2 ml/min; Est GFR (Non-African American) 84.8 ml/min; Potassium 3.9 mmol/L (3.5-5.1)
[2022-11-14] MEDS ORDERED: LACTATED RINGER'S 1,000 ML IV SCH (09:30)
--- NOTE | 2022-11-14 12:10 | History & Physical Bridge Note ---
Date of Service November 14, 2022 History & Physical Bridge Note I have examined the patient, reviewed the History & Physical and in the interval since the performance of the History & Physical I have noted the following changes of clinical significance: L3-L4 laminectomy on the left
[2022-11-14] MEDS ORDERED: ePHEDrine sulfate 50 MG/ML AMP IV PRN (13:15)
[2022-11-14] MEDS ORDERED: ATROPINE SULFATE 0.1 MG/ML 10ML SYR IV PRN (13:15)
[2022-11-14] MEDS ORDERED: fentaNYL citrate PF 100 MCG/2 ML VIAL IV PRN (13:15)
[2022-11-14] MEDS ORDERED: HYDROmorphone INJ 2 MG/ML SYR/VIAL IV PRN (13:15)
[2022-11-14] MEDS ORDERED: ONDANSETRON INJ 2 MG/ML 2 ML VIAL IV PRN (13:15)
[2022-11-14] MEDS ORDERED: BUPIVACAINE/EPINEPHRINE 0.25% 1:200,000 30 ML VIAL ONE (13:20)
[2022-11-14] MEDS ORDERED: ceFAZolin 330 MG/ML 1 GM VIAL ONE (13:21)
[2022-11-14] MEDS ORDERED: LIDOCAINE 2% 2 ML VIAL/AMP(20MG/ML) INFIL ONE (13:24)
[2022-11-14] MEDS ORDERED: PROPOFOL IV EMULSION 10 MG/ML 20 ML VIAL IV ONE (13:24)
[2022-11-14] MEDS ORDERED: ROCURONIUM BROMIDE 10 MG/ML 5 ML VIAL IV ONE (13:24)
[2022-11-14] MEDS ORDERED: ONDANSETRON INJ 2 MG/ML 2 ML VIAL ONE (13:24)
--- NOTE | 2022-11-14 13:34 | Hospitalist Progress Note ---
Date of Service November 14, 2022 Assessment & Plan (1) Lumbar disc herniation with radiculopathy: Plan: Plan for lumbar surgery per ortho spine; however awaiting insurance authorization Remains NPO Cont supportive care with continue morphine, oxycodone, tylenol prn for pain (2) Insomnia: Plan: Likely 2/2 severe pain. Continue seroquel, zolpidem for insomnia cautiously. (3) Depression: Plan: chronic, stable. Continue Buproprion,buspirone per home regimen. SCDs/ambulation-DVT chemoprophylaxis contraindicated with upcomign back surgery Full Code Dispo- awaiting surgical procedure Pt was seen and examined in collaboration with Dr. Flores, please see addendum A total of 40 was spent coordinating, documenting, and providing care for this patient excluding time spent in the performance of separately billed services. This included personally viewing all current laboratories and imaging studies, medication reconciliation, outpatient chart review, and discussion with specialists. Admission and Anticipated Discharge Date Admission Date: November 12, 2022 Supervising Physician Co-Signing Physician Notes Patient seen and examined Reports low back pain radiating to left lower extremities with numbness and tingling in feet Denied constipation or urinary retention. Patient is currently awaiting surg today Will follow up post op Pain control. will monitor CBC tomorrow Agree with other plans as detailed by Betty Linton PA-C Subjective Patient was seen and examined in 377. Follow-up low back pain. Patient was to undergo lumbar procedure today however still waiting for insurance authorization. Continues to complain of back pain. Denies fever, chills, sweats, headache, dizziness, chest pain, shortness breath, nausea, vomiting, abdominal pain. Review of Systems Review of Systems: All systems reviewed & are unremarkable except as noted in HPI & below Physical Exam Physical Exam: Gen: WD/WN, NAD, female, lying in bed, A&O x3 HEENT: Normocephalic, atraumatic, conjunctivae moist, sclerae anicteric, mucous membranes moist. Lung: Clear to Auscultation bilaterally, no wheezes/rales/rhonchi Heart: Regular rate, regular rhythm, no murmurs, rubs, or gallops Abdomen: Soft, NT, ND +BS x 4 Extremities: No edema Skin: Warm, no rash, negative turgor. Results & Data Results & Data Vital Signs (Past 12 Hours) Vital Signs Temp Pulse Resp BP Pulse Ox O2 Del Method 11/14/22 12:19 36.6 C 91 H 18 132/91 99 Room Air 11/14/22 07:50 Room Air 11/14/22 08:01 36.6 C 86 18 130/91 99 Room Air 11/14/22 07:21 36.6 C 95 H 14 106/71 99 Room Air
[2022-11-14] MEDS ORDERED: ceFAZolin 2,000 MG/15 ML IV PUSH IV ONE (13:35)
[2022-11-14] MEDS ORDERED: ceFAZolin 2000MG 2,000 MG/15 ML SYR IV ONE (13:37)
[2022-11-14] MEDS ORDERED: MIDAZOLAM HCL 1 MG/ML 2ML VIAL ONE (13:39)
[2022-11-14] MEDS ORDERED: fentaNYL citrate PF 100 MCG/2 ML VIAL ONE (13:39)
[2022-11-14] MEDS: GABAPENTIN 100 MG CAP PO SCH ×3 (14:36→20:14)
[2022-11-14] MEDS ORDERED: SUGAMMADEX SODIUM 200 MG/2 ML VIAL IV ONE (14:44)
[2022-11-14] MEDS: FLOSEAL HEMOSTATIC MATRIX 10ML TOP ONE ×2 (14:48→16:19)
[2022-11-14] MEDS: SILVER SULFADIAZINE 1% CR 50 GM JAR EXT SCH ×2 (14:48→20:13)
--- NOTE | 2022-11-14 14:48 | Operative Report ---
Post Operative Report Pre & Post Diagnosis Operation Date: 11/14/22 12:55 Pre-Op Diagnosis: Lumbar disc herniation with radiculopathy Post-Op Diagnosis: Lumbar disc herniation with radiculopathy I identified the patient and participated in the time-out.: Yes Procedure Operation Date: 11/14/22 12:55 Actual Procedures L3-L4 laminectomy on the left with excision of herniated free fragment Surgeon Saravanan Goodman DO Acetylene Operator Grace Castro Estimated Blood Loss 50 Findings Consistent with Post-Op Diagnosis Specimens None Indications This is a 52-year-old female who presents with marked decline in status with progressive neurologic deficit affecting the L3 nerve root. She is here for urgent decompression and discectomy. Description of Procedure Patient was met with identified informed consent obtained. Patient was then taken to the operative suite underwent ablation placed in a prone position on the [place] table top Brian frame. All bony prominences well-padded eyes inspected to ensure no external pressure placed upon the. This point the lumbar spine was prepped and draped in a sterile fashion. With the assistance of fluoroscopy identified the L3-L4 disc base and midline incision was created overlying this region. Sharp dissection with assistance of Bovie cautery form down to and exposing the interlaminar space at L3-L4 on the left. Several tender retractors placed. Then performed a laminotomy on the left excising the lateral portion of ligamentum flavum to access the L3-L4 foramina on the left. Several large fragments of disc material identified and removed. The area was explored several times to ensure all loose fragments addressed. It was then copiously irrigated closed with subcutaneous Vicryl and 4 Monocryl for final skin closure. Steri-Strips sterile dressing placed. Patient waken taken to PACU stable condition. Please note Grace Castro was present out the entire procedure involved the patient positioning complex portion of the surgery and final skin closure. I attest to the content of the Intraoperative Record and any orders documented therein. Any exceptions are noted below.
--- NOTE | 2022-11-14 15:26 | Anesthesiology Progress Note ---
Date of Service November 14, 2022 Anesthesia Post Procedure Vital Signs Vital Signs: Temp Pulse Pulse Resp BP Pulse Ox O2 Del Method 11/14/22 15:15 101 H 14 158/94 H 97 Room Air 11/14/22 15:08 36.2 C L 107 H 18 178/111 H 100 Oxymask 11/14/22 12:19 36.6 C 91 H 18 132/91 99 Room Air 11/14/22 07:50 Room Air 11/14/22 08:01 36.6 C 86 18 130/91 99 Room Air 11/14/22 07:21 36.6 C 95 H 14 106/71 99 Room Air 11/13/22 20:41 36.6 C 78 18 128/78 96 Room Air O2 Flow Rate 11/14/22 15:15 11/14/22 15:08 4 11/14/22 12:19 11/14/22 07:50 11/14/22 08:01 11/14/22 07:21 11/13/22 20:41 Pain Intensity Back: Pain Intensity: 3 Left Knee: Pain Intensity: 4 Transfer of Care Handoff Completed per policy Notes Mental Status: alert / awake / arousable Patient Amnestic to Procedure: Yes Nausea / Vomiting: adequately controlled Pain: adequately controlled Airway Patency, RR, SpO2: stable & adequate BP & HR: stable & adequate Hydration State: stable & adequate Anesthetic Complications: no major complications apparent
[2022-11-14] MEDS: buPROPion SR 150 MG TABCR PO SCH ×2 (15:59→20:10)
[2022-11-14] MEDS: busPIRone 5 MG TAB PO SCH ×2 (15:59→20:10)
[2022-11-14] MEDS: DOCUSATE SODIUM 100 MG CAP PO SCH ×2 (15:59→20:14)
[2022-11-14] MEDS: POLYETHYLENE (MIRALAX) 17 GM PACK PO SCH (16:00)
[2022-11-14] MEDS: PANTOprazole 40 MG TAB PO SCH (16:00)
--- NOTE | 2022-11-14 16:33 | Fluoroscopy Report ---
INTRAOPERATIVE RADIOGRAPHS CLINICAL HISTORY: L3-L4 laminectomy. Fluoro time: 9 seconds Ka,r: 3.45 mGy FINDINGS: 2 spot fluoroscopic images of the lumbar spine are presented. A surgical probe projects pos teriorly at the L3-L4 disc space on the initial image. This has been advanced to the level of the L3- L4 disc on the second image. IMPRESSION: Intraoperative images from lumbar spinal surgery as above. Electronically signed by: Chadwick Hong M.D. 11/14/2022 4:32 PM
[2022-11-14] MEDS: MONTELUKAST SODIUM 10 MG TABLET PO SCH (20:13)
[2022-11-14] MEDS ORDERED: MELATONIN 3 MG TAB PO PRN (20:32)
[2022-11-14] MEDS: ZOLPIDEM TARTRATE 10 MG TAB PO PRN (20:58)
[2022-11-14] MEDS: QUEtiapine FUMARATE 100 MG TABLET PO SCH (20:58)
[2022-11-15] MEDS: oxyCODONE HCL IR 5 MG TAB (IMMEDIATE RELEASE) PO PRN ×3 (04:57→16:20)
[2022-11-15] MEDS: diazePAM 2 MG TABLET PO SCH ×3 (05:39→21:56)
[2022-11-15] MEDS: ACETAMINOPHEN 500 MG TAB PO SCH ×3 (05:39→21:56)
[2022-11-15] MEDS: busPIRone 5 MG TAB PO SCH ×2 (07:39→21:04)
[2022-11-15] MEDS: buPROPion SR 150 MG TABCR PO SCH ×2 (07:39→21:03)
[2022-11-15] MEDS: MoRPHine SULFATE 4 MG/ML 1 ML CARP\\VIAL IV PRN ×2 (07:40→19:43)
[2022-11-15] MEDS: DOCUSATE SODIUM 100 MG CAP PO SCH ×2 (09:10→21:05)
[2022-11-15] MEDS: PANTOprazole 40 MG TAB PO SCH (09:10)
[2022-11-15] MEDS: SILVER SULFADIAZINE 1% CR 50 GM JAR EXT SCH ×2 (09:10→21:56)
[2022-11-15] MEDS: GABAPENTIN 100 MG CAP PO SCH ×3 (09:10→21:05)
[2022-11-15] MEDS: POLYETHYLENE (MIRALAX) 17 GM PACK PO SCH (09:14)
[2022-11-15 09:29] LABS: Hematocrit (blood only) 43.1 % (37.0-47.0); Hemoglobin 14.5 g/dl (12.0-16.0); Mean Corpuscular Hgb Conc 33.6 g/dL (32.0-36.0); Mean Corpuscular Volume 83.2 fL (80.0-100.0); Mean Platelet Volume 9.5 fL (9.4-12.4); Platelet Count 317 K/uL (130-400); RDW Coefficient of Variation 13.6 % (11.5-14.5); RDW Standard Deviation 41.7 fL (36.4-46.3); Red Blood Count 5.18 M/uL (4.20-5.40)
[2022-11-15 10:00] LABS: Calcium 9.3 mg/dl (8.6-10.3); Creatinine Clr Calc Pharmacy 92.6 ml/min; Est GFR (African American) 111.6 ml/min; Est GFR (Non-African American) 96.3 ml/min; Potassium 3.7 mmol/L (3.5-5.1)
--- NOTE | 2022-11-15 12:40 | Hospitalist Progress Note ---
Date of Service November 15, 2022 Assessment & Plan (1) Lumbar disc herniation with radiculopathy: Plan: S/p L3-L4 left lumbar laminectomy Pain control PT/OT Post op leukocytosis is reactive Hb is stable (2) Insomnia: Plan: Continue zolpidem (3) Depression: Plan: Chronic, stable. Continue Buproprion, buspirone DVT ppx- SCD Full Code I spent a total of 35 minutes coordinating, documenting and providing care for this patient excluding time spent in performance of separately billed services Admission and Anticipated Discharge Date Admission Date: November 12, 2022 Subjective Patient seen and examined Reports improvement in pain radiating down to left knee and left leg numbness Reports surgical site pain Has not had BM yet. Denied any urinary retention Denied other symptoms on ROS Physical Exam Constitutional: + well hydrated; no acute distress Eyes: PERRL, conjunctivae normal, anicteric sclerae ENMT: external ear and nose normal, oropharynx normal Respiratory: normal respiratory effort, lungs clear to auscultation Cardiovascular: Rate/Rhythm: regular rate and regular rhythm S1 S2 Gastrointestinal (Abdomen): normal bowel sounds, soft, nontender, no hepatosplenomegaly Musculoskeletal: Clean dressing over surgical site. No pedal edema Neurologic: PERRL, EOMI, accommodation nl, no face palsy, no dysarthria Psychiatric: A+Ox3, euthymic affect Results & Data Results & Data Vital Signs (Past 12 Hours) Vital Signs Temp Pulse Resp BP BP Pulse Ox O2 Del Method 11/15/22 08:00 Room Air 11/15/22 07:27 37.1 C 101 H 18 100/72 97 Room Air 11/15/22 04:56 36.5 C 78 18 116/62 97 Room Air Laboratory Results Abnormal lab results 11/14/22 11/15/22 11/15/22 Range/Units 20:29 09:04 09:04 WBC 16.30 H (4.8-10.8) K/ul BUN/Creatinine Ratio 25.0 H (10-20) Glucose 108 H (70-99(Fasting)) mg/dl POC Glucose 125 H (70-99) mg/dl
--- NOTE | 2022-11-15 13:26 | Orthopedic Progress Note ---
Date of Service November 15, 2022 Assessment & Plan (1) Lumbar disc herniation with radiculopathy: Plan: She will proceed with physical therapy and if comfortable discharge home when stable. Admission and Anticipated Discharge Date Admission Date: November 12, 2022 Subjective Back pain controlled leg pain markedly improved Physical Exam Physical Exam: On exam she is in bed. She is comfortable. She is constricted testing. Results & Data Vital Signs (Past 12 Hours) Vital Signs Temp Pulse Resp BP BP Pulse Ox O2 Del Method 11/15/22 08:00 Room Air 11/15/22 07:27 37.1 C 101 H 18 100/72 97 Room Air 11/15/22 04:56 36.5 C 78 18 116/62 97 Room Air
[2022-11-15] MEDS: QUEtiapine FUMARATE 100 MG TABLET PO SCH (21:05)
[2022-11-15] MEDS: MONTELUKAST SODIUM 10 MG TABLET PO SCH (21:05)
[2022-11-15] MEDS: ZOLPIDEM TARTRATE 10 MG TAB PO PRN (21:05)
[2022-11-16] MEDS: MoRPHine SULFATE 4 MG/ML 1 ML CARP\\VIAL IV PRN ×2 (02:12→15:03)
[2022-11-16] MEDS: oxyCODONE HCL IR 5 MG TAB (IMMEDIATE RELEASE) PO PRN ×3 (06:08→18:28)
[2022-11-16] MEDS: ACETAMINOPHEN 500 MG TAB PO SCH ×3 (06:08→21:47)
[2022-11-16] MEDS: diazePAM 2 MG TABLET PO SCH ×3 (06:09→21:47)
[2022-11-16] MEDS: busPIRone 5 MG TAB PO SCH ×2 (09:13→20:26)
[2022-11-16] MEDS: buPROPion SR 150 MG TABCR PO SCH ×2 (09:13→20:26)
[2022-11-16] MEDS: DOCUSATE SODIUM 100 MG CAP PO SCH ×2 (09:14→20:23)
[2022-11-16] MEDS: PANTOprazole 40 MG TAB PO SCH (09:14)
[2022-11-16] MEDS: GABAPENTIN 100 MG CAP PO SCH ×3 (09:14→20:25)
[2022-11-16] MEDS: POLYETHYLENE (MIRALAX) 17 GM PACK PO SCH (09:15)
[2022-11-16] MEDS: SILVER SULFADIAZINE 1% CR 50 GM JAR EXT SCH ×2 (09:16→20:26)
--- NOTE | 2022-11-16 09:39 | Orthopedic Progress Note ---
Date of Service November 16, 2022 Assessment & Plan (1) Lumbar disc herniation with radiculopathy: Plan: Patient is stable postoperative day #2. She still is having difficulties with controlling her back pain. She needs to change positions frequently and ambulate more often to help prevent back pain and spasm. When she is comfortable and has met discharge criteria she may to be discharged home. Admission and Anticipated Discharge Date Admission Date: November 12, 2022 Subjective Patient was seen bedside in room 377 the patient was asleep upon entering the room. She woke without difficulties. She complains of pain and spasms in the back itself. The leg pain that she had prior to her surgery however has improved. She has ambulated but in a limited fashion. She denies any other numbness, tingling, or paresthesias. Physical Exam Physical Exam: On exam she appeared to be resting comfortably. When she was awake however she complained of significant back pain. She has difficulties positioning herself in bed. Her calves are supple nontender. Her abdomen soft and nontender her strength and sensation are both intact. Results & Data Vital Signs (Past 12 Hours) Vital Signs Temp Pulse Resp BP Pulse Ox O2 Del Method 11/16/22 06:56 36.4 C L 104 H 16 130/81 97 Room Air 11/15/22 23:18 Room Air
--- NOTE | 2022-11-16 15:31 | Hospitalist Progress Note ---
Date of Service November 16, 2022 Assessment & Plan (1) Lumbar disc herniation with radiculopathy: Plan: S/p L3-L4 left lumbar laminectomy Pain control Continue oxycodone po prn, iv morphine prn Continue gabapentin 100mg TID Will add gabapentin 300mg HS PT/OT while inpatient Post op leukocytosis is reactive Hb is stable (2) Insomnia: Plan: Continue zolpidem (3) Depression: Plan: Chronic, stable. Continue Buproprion, buspirone DVT ppx- SCD Full Code I spent a total of 45 minutes coordinating, documenting and providing care for this patient excluding time spent in performance of separately billed services Admission and Anticipated Discharge Date Admission Date: November 12, 2022 Subjective Patient seen and examined Reports low back pain at surgical site which was severe throughout the night and could not sleep Reports pain radiating down to left knee and left leg numbness are almost completely resolved Has not had BM yet. Denied any urinary retention Denied other symptoms on ROS Physical Exam Constitutional: + well hydrated; no acute distress Eyes: PERRL, conjunctivae normal, anicteric sclerae ENMT: external ear and nose normal, oropharynx normal Respiratory: normal respiratory effort, lungs clear to auscultation Cardiovascular: Rate/Rhythm: regular rate and regular rhythm S1 S2 Gastrointestinal (Abdomen): normal bowel sounds, soft, nontender, no hepatosplenomegaly Musculoskeletal: Clean dressing over surgical site Neurologic: PERRL, EOMI, accommodation nl, no face palsy, no dysarthria Psychiatric: A+Ox3, euthymic affect Results & Data Results & Data Vital Signs (Past 12 Hours) Vital Signs Temp Pulse Resp BP BP Pulse Ox O2 Del Method 11/16/22 14:49 36.8 C 87 16 144/93 H 99 Room Air 11/16/22 06:56 36.4 C L 104 H 16 130/81 97 Room Air
[2022-11-16] MEDS: QUEtiapine FUMARATE 100 MG TABLET PO SCH (20:23)
[2022-11-16] MEDS: GABAPENTIN 300 MG CAP PO SCH (20:25)
[2022-11-16] MEDS: MONTELUKAST SODIUM 10 MG TABLET PO SCH (21:47)
[2022-11-16] MEDS: ZOLPIDEM TARTRATE 10 MG TAB PO PRN (21:50)
[2022-11-17] MEDS: oxyCODONE HCL IR 5 MG TAB (IMMEDIATE RELEASE) PO PRN ×4 (03:26→20:25)
[2022-11-17] MEDS: ACETAMINOPHEN 500 MG TAB PO SCH ×3 (05:55→22:39)
[2022-11-17] MEDS: diazePAM 2 MG TABLET PO SCH ×3 (05:55→22:40)
[2022-11-17 08:09] LABS: Hematocrit (blood only) 36.6 % (37.0-47.0); Hemoglobin 12.3 g/dl (12.0-16.0); Mean Corpuscular Hemoglobin 28.1 pg (25.0-34.0); Mean Corpuscular Hgb Conc 33.6 g/dL (32.0-36.0); Mean Corpuscular Volume 83.8 fL (80.0-100.0); Mean Platelet Volume 9.4 fL (9.4-12.4); Platelet Count 286 K/uL (130-400); RDW Coefficient of Variation 13.8 % (11.5-14.5); RDW Standard Deviation 42.5 fL (36.4-46.3); Red Blood Count 4.37 M/uL (4.20-5.40); White Blood Count 8.15 K/ul (4.8-10.8)
[2022-11-17] MEDS: GABAPENTIN 100 MG CAP PO SCH ×3 (08:10→20:28)
[2022-11-17] MEDS: POLYETHYLENE (MIRALAX) 17 GM PACK PO SCH (08:10)
[2022-11-17] MEDS: PANTOprazole 40 MG TAB PO SCH (08:10)
[2022-11-17] MEDS: buPROPion SR 150 MG TABCR PO SCH ×2 (08:11→20:22)
[2022-11-17] MEDS: DOCUSATE SODIUM 100 MG CAP PO SCH ×2 (08:11→20:32)
[2022-11-17] MEDS: busPIRone 5 MG TAB PO SCH ×2 (08:11→20:23)
[2022-11-17] MEDS: SILVER SULFADIAZINE 1% CR 50 GM JAR EXT SCH ×2 (08:11→20:27)
[2022-11-17 08:27] LABS: Calcium 8.9 mg/dl (8.6-10.3); Creatinine Clr Calc Pharmacy 105.8 ml/min; Est GFR (African American) 119.5 ml/min; Est GFR (Non-African American) 103.1 ml/min; Potassium 4.1 mmol/L (3.5-5.1)
--- NOTE | 2022-11-17 08:43 | Orthopedic Progress Note ---
Date of Service November 17, 2022 Assessment & Plan (1) Lumbar disc herniation with radiculopathy: Plan: At this time I suspect she is having some postoperative swelling and subsequent sciatica. I will initiate a course of IV Decadron. If she is discharged today or tomorrow a Medrol Dosepak would be reasonable. Admission and Anticipated Discharge Date Admission Date: November 12, 2022 Subjective Patient is continuing to struggle with left sciatica. It is a different pattern than the L3 compression. She is up and ambulating regular with a walker. Physical Exam Physical Exam: Exam she is ambulating about the room. She does have evidence of static with weightbearing to left lower extremity. Results & Data Vital Signs (Past 12 Hours) Vital Signs Temp Pulse Resp BP Pulse Ox O2 Del Method 11/17/22 08:31 36.6 C 83 16 123/55 L 100 Room Air 11/16/22 22:45 36.6 C 90 15 113/76 100 Room Air
[2022-11-17] MEDS ORDERED: LACTULOSE SYRUP 30 GM/45 ML UDP PO STA (11:10)
--- NOTE | 2022-11-17 12:14 | Hospitalist Progress Note ---
Date of Service November 17, 2022 Assessment & Plan (1) Lumbar disc herniation with radiculopathy: Plan: S/p L3-L4 left lumbar laminectomy POD 3 Continue current pain regimen Continue gabapentin 100mg TID Continue gabapentin 300mg HS Ortho evaluation noted. Patient started on iv dexamethasone 8mg q8h for possible post op swelling Plan to dc tomorrow on medrol dose monica (2) Insomnia: Plan: Continue zolpidem (3) Depression: Plan: Chronic, stable. Continue Buproprion, buspirone DVT ppx- SCD Full Code I spent a total of 35 minutes coordinating, documenting and providing care for this patient excluding time spent in performance of separately billed services Admission and Anticipated Discharge Date Admission Date: November 12, 2022 Subjective Patient seen and examined Reports some improvement in her back pain Slept better last night Passing flatus but has not have any BM Denied any urinary retention Physical Exam Constitutional: + well hydrated; no acute distress Eyes: PERRL, conjunctivae normal, anicteric sclerae ENMT: external ear and nose normal, oropharynx normal Respiratory: normal respiratory effort, lungs clear to auscultation Cardiovascular: Rate/Rhythm: regular rate and regular rhythm S1 S2 Gastrointestinal (Abdomen): normal bowel sounds, soft, nontender, no hepatosplenomegaly Musculoskeletal: Clean dressing over surgical site Neurologic: PERRL, EOMI, accommodation nl, no face palsy, no dysarthria Psychiatric: A+Ox3, euthymic affect Results & Data Results & Data Vital Signs (Past 12 Hours) Vital Signs Temp Pulse Resp BP Pulse Ox O2 Del Method 11/17/22 08:31 36.6 C 83 16 123/55 L 100 Room Air Laboratory Results Abnormal lab results 11/17/22 11/17/22 Range/Units 07:38 07:38 Hct 36.6 L (37.0-47.0) % BUN/Creatinine Ratio 27.0 H (10-20)
[2022-11-17] MEDS: dexAMETHasone 8 MG in SYRINGE 0 ML IV SCH ×2 (15:30→22:39)
[2022-11-17] MEDS ORDERED: POLYETHYLENE (MIRALAX) 17 GM PACK PO PRN (17:09)
[2022-11-17] MEDS: MONTELUKAST SODIUM 10 MG TABLET PO SCH (20:27)
[2022-11-17] MEDS: GABAPENTIN 300 MG CAP PO SCH (20:28)
[2022-11-17] MEDS: QUEtiapine FUMARATE 100 MG TABLET PO SCH (21:28)
[2022-11-17] MEDS: ZOLPIDEM TARTRATE 10 MG TAB PO PRN (21:28)
[2022-11-18] MEDS: oxyCODONE HCL IR 5 MG TAB (IMMEDIATE RELEASE) PO PRN ×2 (04:56→10:28)
[2022-11-18] MEDS: dexAMETHasone 8 MG in SYRINGE 0 ML IV SCH (05:38)
[2022-11-18] MEDS: diazePAM 2 MG TABLET PO SCH ×2 (05:39→13:53)
[2022-11-18] MEDS: ACETAMINOPHEN 500 MG TAB PO SCH ×2 (05:39→13:53)
[2022-11-18] MEDS: busPIRone 5 MG TAB PO SCH (08:28)
[2022-11-18] MEDS: PANTOprazole 40 MG TAB PO SCH (08:28)
[2022-11-18] MEDS: DOCUSATE SODIUM 100 MG CAP PO SCH (08:28)
[2022-11-18] MEDS: GABAPENTIN 100 MG CAP PO SCH ×2 (08:28→13:53)
[2022-11-18] MEDS: buPROPion SR 150 MG TABCR PO SCH (08:28)
[2022-11-18] MEDS: SILVER SULFADIAZINE 1% CR 50 GM JAR EXT SCH (08:29)
[2022-11-18] MEDS: POLYETHYLENE (MIRALAX) 17 GM PACK PO SCH (08:29)
--- NOTE | 2022-11-18 11:12 | Discharge Summary ---
Date of Service November 18, 2022 Admission HPI Per Admitting Provider 52 year old female with medical history of depression on multiple meds, presented to the er with severe back pain , states it is a10/10. Patients pain symptoms were not relieved with oxycodone q 6 hourly. she has come to the er multiple times over the past 2 weeks . denies any bowel or bladder incontinence Lower back pain is radiating down to the left lower extremity. the symptoms have gotten worse and hence is been evaluated for procedure At time of evaluation in the er she was started on morphine to relieve her symptoms Denies any chestpain, shorness of breath . Admission Exam Per Admitting Provider Neuro: AAO times 3, PERRLA, HEENT: head normocephalic, moist mucus membranes CV: S1/S2,no murmurs Resp: Lungs CTA in all siegel. On RA GI: Abdomen soft non tender Musculoskeletal: severe back pain with pain radiating down to the left lower extremity Skin: (-) rashes , (-) erythema. Psych: anxious Principal Diagnosis Lumbar disc herniation with radiculopathy S/p lumbar laminectomy Discharge Exam Constitutional + well hydrated; no acute distress Eyes PERRL, conjunctivae normal, anicteric sclerae ENMT external ear and nose normal, oropharynx normal Respiratory normal respiratory effort, lungs clear to auscultation Cardiovascular Rate/Rhythm: regular rate and regular rhythm S1 S2 Gastrointestinal (Abdomen) normal bowel sounds, soft, nontender, no hepatosplenomegaly Musculoskeletal Clean dressing over surgical site Neurologic PERRL, EOMI, accommodation nl, no face palsy, no dysarthria Psychiatric A+Ox3, euthymic affect Discharge Data Allergies Allergy/AdvReac Type Severity Reaction Status Date / Time tramadol Allergy Severe SHORT OF Verified 11/12/22 19:19 BREATH hydromorphone [From Dilaudid] Allergy Intermediate RASH/VOMITI Verified 11/12/22 19:19 NG latex Allergy Intermediate ITCHING Verified 11/12/22 19:19 Consultations 11/12/22 19:20 ED Decision to Admit Stat 11/12/22 22:39 Consult Orthopedic Surgery Routine Procedures Performed Operation Date: 11/14/22 12:55 Actual Procedures p L3-L4 Left Lumbar Laminectomy(Left) - Saravanan Goodman, Ordered Studies 11/14/22 FL spine 1V any level Routine Hospital Course (1) Lumbar disc herniation with radiculopathy: S/p L3-L4 left lumbar laminectomy POD 4 Patient doing well Discharged on oxycodone prn, medrol dose rayshawn Patient to follow up with PCP and ortho surgeon outpatient (2) Insomnia: Continue zolpidem (3) Depression: Chronic, stable. Continue Buproprion, buspirone Total Time Total Time Spent Total Time Spent (In Minutes): 35 Total Time Includes: Examination of the Patient, Discharge Planning and Medication Reconciliation Discharge Plan Discharge Items Patient Disposition: Home - Self-Care Reason For Visit: HERNIATED DISC Discharge Diagnosis: Lumbar disc herniation with radiculopathy S/p lumbar laminectomy Condition on Discharge: Good Activity: As commented below Non-emergency contact: Primary Care Provider Call non-emergency contact if: you have any medication questions Follow-up/Referrals: Andressa Lees DO [Primary Care Provider] - (Date & Time 11/21/2022 2:00 PM Provider Andressa Lees DO Department [facility] ) Diet: Regular Addtl Attending Provider Instructions: Mrs Maureen Guzman came into the hospital with worsening back pain. You had laminectomy with improvement of symptoms. You are being discharged on medrol dose rayshawn. Please take this as instructed on the pack. Use the oxycodone as needed. Please follow the surgeon's instruction below. It was a pleasure taking care of you. 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 No prolonged sitting (less than 30 minutes for the first 3 weeks after surgery). 2. No bending, lifting more than 5 pounds, or twisting (roll like a log when turning in bed). 3. You may shower 3 days after surgery if no drainage from wound. Thoroughly dry wound. Do not soak in the tub. 4. Please walk as much as you can for exercise. Gradually increase the distance that you walk as your endurance increases. 5. You may drive in 7-10 days if you are comfortable and no longer requiring pain medications. SPECIAL CARE INSTRUCTIONS: VERY IMPORTANT TO READ AND REVIEW A. Your surgical incision has been closed with a cosmetic suture under the skin that will dissolve in about 6 weeks. In 14 days, you can use a pair of clean scissors and cut the suture that is left outside of the skin at the ends of your incision. B. Complications are uncommon, but please contact us if you have any signs or symptoms of: 1. wound infection (fever higher than 102.5 degrees F, redness, separation of wound, drainage, or increasing pain from the incision) 2. blood clots in legs (pain, swelling, redness and warmth in legs) 3. urinary tract infection (fever higher than 102.5 degrees, burning upon urination or increased frequency of urination) 4. nerve problems (inability to walk on your toes or heels, numbness, loss of bowel or bladder control) 5. any other symptoms that concern you. C. Please call the office at if you have any concerns or questions about your operation or recovery. MANAGING PAIN AFTER SPINAL SURGERY 1. Narcotic medication is intended for short-term use and will be provided for surgical pain. Surgical pain usually lasts for a period of 4-6 weeks. Narcotic medication includes Percocet, Vicodin, Darvocet, Tylenol #3 or Lortab. 2. Longer-term pain is more appropriately treated with non-narcotic medication such as Tylenol ES. 3. Muscle spasm is not appropriately treated with narcotics. Muscle relaxers such as Soma, Flexeril or Skelaxin can be used along with Tylenol ES. 4. Remember that we all live with some "aches and pains". This is not unusual or uncommon after an injury or as we get older. 5. We will provide appropriate medication within the normal guidelines of their prescribed use. We will also be very cautious and aware of potential abuse and extended duration of patients' medication needs. 6. Please allow 2-3 days to process refills. Prescriptions will not be mailed but must be picked up at the office. FOLLOW UP VISIT: Keep your scheduled follow-up appointment. Any questions, please call the office at . Pending Studies at Discharge: No Stand-Alone Forms: My [facility], Pain - Opioid Pain Management, Smoking Cessation Medications and DC Order Prescriptions: New oxycodone 5 mg tablet 5 mg PO Q6H PRN (Reason: pain) Qty: 30 0RF methylprednisolone [Medrol (Rayshawn)] 4 mg tablets,dose pack See Rx Instructions .ROUTE .COMPLEX Qty: 21 0RF Rx Instructions: Follow instructions on pack Continued buspirone 10 mg tablet 10 mg PO BID montelukast [Singulair] 10 mg tablet 10 mg PO QPM multivitamin Tablet 1 tab PO DAILY bupropion HCl 150 mg tablet sustained-release 12 hr 150 mg PO BID Rx Instructions: LAST REFILLED 09/28/22 FOR 30 DAYS dextroamphetamine-amphetamine 10 mg tablet 10 mg PO QPM Rx Instructions: TAKE EARLY AFTERNOON omeprazole 20 mg capsule,delayed release(DR/EC) 20 mg PO DAILY gabapentin 100 mg capsule 100 mg PO TID zolpidem 12.5 mg tablet,ext release multiphase 12.5 mg PO HS PRN (Reason: Sleep) quetiapine 50 mg tablet 100 mg PO HS Vyvanse 40 mg capsule 40 mg PO DAILY melatonin 10 mg Tablet 20 mg PO HS PRN (Reason: Sleep) cyclobenzaprine 10 mg tablet 10 mg PO HS PRN (Reason: muscle spasm) valacyclovir 500 mg Tablet 500 mg PO Q12H PRN (Reason: as directed) dicyclomine 20 mg Tablet 20 mg PO QID PRN (Reason: Abdominal Pain) ondansetron 4 mg tablet,disintegrating 4 mg PO Q6 PRN (Reason: nausea and vomiting) Qty: 14 0RF Discharge Orders: Discharge Order (Routine); Ordered 11/18/22 Ordered By: Sabina Morales/Other Patient Handouts: DVT Post Op Prevention Admission Data Admit Date/Time: 11/12/22 19:55 Attending Provider: Sabina Flores I. Admit Provider: Yonathan Moore Primary Care Provider: Andressa Lees Other Providers: Haritha Stout ; Aly Workman ; Saravanan Goodman Other Interventions: Discharge Summary Assessment (RN) Last Done: 11/18/22 11:29
== END 2022-11-18 14:06 | disposition home or self-care (01) | DRG 520 ==
LOC: ED 18:21 → 3N 19:55 → SUATTDRO 19:55 → 3N 22:08

== ENCOUNTER 2024-08-27 17:08 | Inpatient (IN) ==
--- NOTE | 2024-08-27 17:33 | Emergency Department Note ---
Impression & Plan Sigmoid diverticulitis, Constipation ED Provider Note CHIEF COMPLAINT: Abdominal pain HISTORY OF PRESENTING ILLNESS: This 54-year-old female patient presents to the emergency department for evaluation of abdominal pain and nausea. The patient has not had a bowel movement in the past 5 days. The patient vomited the first 2 days, but none since. She is also burping a lot and her burps smell like rotten eggs. She tried MiraLAX and an enema without relief. She also fell on 08/21/2024 and was seen in the ER on 08/22/2024 for hip and back pain. The patient was also seen in the ER on 08/23/2024 for eye pain. She rates her discomfort as 10/10. No fevers. No previous history of bowel obstruction. She had a CCY, but denies any other abdominal surgeries. She denies a history of reflux or ulcers. No previous EGD, but has had a colonoscopy. She is not on any blood thinners. CT scans of the lumbar spine, left hip, and pelvis without contrast were obtained on 08/22/2024. No acute fractures or dislocations noted. No obvious hematoma noticed. There was a moderate amount of stool in the colon and rectum. The patient had moderate multilevel neural foraminal stenosis as well as moderate degenerative changes of the lumbar spine. MRI of the lumbar spine showed a left L3 hemilaminectomy, mild degenerative disc disease and moderate facet arthrosis within the lumbar spine, mild central canal narrowing at L2/L3, and moderate left neural foraminal stenosis at L3/L4. However, no acute or concerning process by MRI. The patient was given Lidoderm patches, prednisone, and oxycodone at discharge on 08/22/2024. The patient was seen on 08/23/2024 and diagnosed with a corneal abrasion of the right eye and was started on Ciloxan eyedrops. REVIEW OF SYSTEMS: See HPI for pertinent positives and pertinent negatives. ALLERGIES: Tramadol, Dilaudid, Latex. Possible rash to Morphine?? MEDICATIONS: See below PAST MEDICAL HISTORY: See below PHYSICAL EXAM: VITALS: Vitals are noted on the nurse's note and reviewed by myself. GENERAL: The patient appears to be in pain and is curled up on the bed in a ball. Non toxic, in no acute distress, non-diaphoretic. SKIN: Capillary refill <2 sec. EYES: PERRLA. EOMI. Conjunctivae without injection, sclerae without icterus. NOSE: Patent without discharge. MOUTH: Mucous membranes moist. Uvula midline. Airway patent. NECK: Supple without nuchal rigidity. HEART: Regular rate and rhythm without murmurs gallops or rubs. LUNGS: Clear to auscultation bilaterally without wheezes, rales or rhonchi. No retractions or accessory muscle use. ABDOMEN: Positive bowel sounds x 4. Normal tympanic percussion. Soft, diffusely tender to palpation with no maximal area of tenderness. No masses or hepatosplenomegaly. Arias sign negative. No CVA tenderness. No guarding, rigidity, or rebound tenderness. No focal RLQ or LLQ tenderness. MUSCULOSKELETAL: No gross musculoskeletal defects. NEURO: Patient was alert and oriented. No focal neurological deficits. DIFFERENTIAL DIAGNOSIS: Differential diagnosis includes hepatitis, pancreatitis, cholecystitis, cholelithiasis, appendicitis, kidney stone, pyelonephritis, UTI, gastritis, gastroenteritis, mesenteric adenitis, obstruction, constipation, hernia, abdominal abscess, perforation, diverticulitis, IBD, ischemic colitis, abdominal aortic aneurysm, , ectopic , ovarian cyst, ovarian torsion, acute salpingitis, or others. ED COURSE AND MEDICAL DECISION MAKING: HISTORY FROM INDEPENDENT HISTORIAN: Additional history obtained from the patient's MEDICATIONS GIVEN: 1 L normal saline solution bolus. Tylenol 1000 mg IV. Zofran 4 mg IV. Pepcid 20 mg IV. Protonix 40 mg IV. Benadryl 25 mg IV. Zosyn 4.5 g IV. MONITOR: Continuous monitoring coordinator: Order was placed for continuous monitoring coordinator. Patient was placed on the monitoring coordinator and continuous pulse ox. Patient was noted to be in normal sinus rhythm at an initial rate of 80 bpm per my interpretation. INTERPRETATION OF LABS: I interpreted the labs with full lab results as below in the lab section of this note. Laboratory results pertinent to the emergent complaint are discussed in the MDM section below. The patient was advised to follow up with their PCP and/or specialist(s) for further outpatient monitoring and management of any abnormal results. INTERPRETATION OF IMAGING: Imaging studies were interpreted by myself and read by radiology as per the imaging section of this note. The patient was advised to follow up with their PCP and/or specialist(s) for further outpatient management of any non-emergent abnormal findings. Chest x-ray negative for acute cardiopulmonary etiology. CT scan of the abdomen pelvis with IV contrast shows suspected acute diverticulitis of the sigmoid colon with no evidence for perforation or abscess formation. There is a large amount of stool throughout the colon. Small amount of free pelvic fluid. No definite change in the liver mass which is indeterminate in nature, but may represent a focal nodular hyperplasia. Small left renal cyst. Uterine leiomyoma. EXTERNAL RECORDS REVIEWED: I reviewed the patient's previous visits as above. CONSULTATIONS: On-call hospitalist MDM SUMMARY: I examined the patient. The patient presents for evaluation of abdominal pain, increased belching, and nausea. The patient has not had a bowel movement in the past 5 days. The patient also fell on 08/21/2024 and was seen in the ER on 08/22/[address] scans of the lumbar spine, left hip, and pelvis without contrast without acute or traumatic findings. There was a moderate amount of stool in the colon and rectum at that time. The patient also had an MRI of the lumbar spine at that time without concerning findings as above. The patient states that the abdominal pain started 2 days ago. An IV lock was placed and labs were drawn. The patient was medicated as above with improvement of her symptoms. White blood cell count elevated 11.42. Hemoglobin normal at 13.5. Platelet count normal at 318. CMP without significant abnormalities. Magnesium normal. TSH normal. Lipase normal. Urinalysis with 1+ leukocyte Estrace, but otherwise negative. Chest x-ray negative for acute cardiopulmonary etiology. CT scan of the abdomen pelvis with IV contrast shows suspected acute diverticulitis of the sigmoid colon with no evidence for perforation or abscess formation. There is a large amount of stool throughout the colon. Small amount of free pelvic fluid. No definite change in the liver mass which is indeterminate in nature, but may represent a focal nodular hyperplasia. Small left renal cyst. Uterine leiomyoma. I had a meaningful discussion about this patient with Dr. Cooley who agrees with my assessment and the treatment plan. Due to the patient's diverticulitis along with significant constipation, there is concern for possible perforation if her constipation is not adequately managed. Therefore, we recommend admission of the patient for further IV antibiotics and treatment of the constipation. The patient was given Zosyn 4.5 g IV. I spoke with the on-call hospitalist who agreed to admit the patient for further evaluation and treatment. Please refer to their dictation for further details. The patient's care was transferred in stable condition. DIAGNOSIS: Diverticulitis Constipation Past Med/Surg History Problem List (Updated 08/27/24 @ 23:22 by Rosy Blake PA-C) Constipation (Acute) Sigmoid diverticulitis (Acute) Corneal abrasion, right (Acute) History of lumbar surgery (Acute) Left leg pain (Acute) Left hip pain (Acute) Fall (Acute) Lumbar back pain (Acute) Lumbar disc herniation with radiculopathy Insomnia Fall (Acute) Contusion of multiple sites (Acute) Contusion of multiple sites (Acute) Medical History Depression Left lumbar radiculopathy Social History Smoking Status: Never smoker Second Hand Exposure: No; Do You Dip or Chew Tobacco: No; Hx Alcohol Use: No Hx Substance Use: No Preferred Language: Azerbaijani Communication Ability: Effective Shell Maker Lockstitch Required: No Beliefs That Will Affect Care: None Current Living Situation: Spouse Current Living Situation Comment: lives in split level home with Feels Safe at Home: Yes Assistive Devices: Walker Allergies Allergies Allergy/AdvReac Type Severity Reaction Status Date / Time tramadol Allergy Severe SHORT OF Verified 08/27/24 21:08 BREATH hydromorphone [From Dilaudid] Allergy Intermediate RASH/VOMITI Verified 08/27/24 21:08 NG latex Allergy Intermediate ITCHING Verified 08/27/24 21:08 morphine Allergy Intermediate Rash and Verified 08/27/24 21:08 nausea and vomiting Home Meds Home Medications Medication Instructions Recorded Confirmed montelukast 10 mg tablet 10 mg PO HS 03/22/19 08/27/24 (Singulair) cyclobenzaprine 10 mg tablet 10 mg PO HS PRN muscle spasm 11/12/22 08/27/24 dicyclomine 20 mg tablet 20 mg PO QID PRN Abdominal Pain 11/12/22 08/27/24 multivitamin 1 tab PO QAM 11/12/22 08/27/24 valacyclovir 500 mg tablet 500 mg PO Q12H PRN as directed 11/12/22 08/27/24 albuterol sulfate 90 mcg/actuation 2 puff inhalation Q6 PRN Wheezing 08/27/24 08/27/24 aerosol inhaler alprazolam 1 mg tablet 1 mg PO BID PRN anxiety attacks 08/27/24 08/27/24 ascorbic acid (vitamin C) 500 mg 500 mg PO QAM 08/27/24 08/27/24 tablet (Vitamin C) ciprofloxacin HCl 0.3 % eye drops 1 drp OPR QID 08/27/24 08/27/24 dextromethorphan IR 45 1 tab PO BID 08/27/24 08/27/24 mg-bupropion ER 105 mg biphasic tablet (Auvelity) diazepam 10 mg tablet 5 - 10 mg PO BID 08/27/24 08/27/24 fluticasone propionate 50 2 spray intranasal QAM PRN 08/27/24 08/27/24 mcg/actuation nasal Congestion spray,suspension lisdexamfetamine 30 mg capsule 30 mg PO QAM 08/27/24 08/27/24 lisinopril 10 mg tablet 10 mg PO QAM 08/27/24 08/27/24 melatonin 10 mg tablet,extended 10 mg PO HS 08/27/24 08/27/24 release minoxidil 2.5 mg tablet 2.5 mg PO QAM 08/27/24 08/27/24 prednisolone acetate 1 % eye 1 drp OPR QID 08/27/24 08/27/24 drops,suspension quetiapine 25 mg tablet 25 mg PO HS 08/27/24 08/27/24 semaglutide (weight loss) 0.5 0.5 mg subcut WK 08/27/24 08/27/24 mg/0.5 mL subcutaneous pen injector (Aaron) temazepam 22.5 mg capsule 22.5 mg PO HS Sleep 08/27/24 08/27/24 zinc gluconate 50 mg tablet 50 mg PO QAM 08/27/24 08/27/24 Results & Data (ED) Vital Signs Vital Signs - 24 hr 08/27/24 17:14 08/27/24 18:54 08/27/24 18:54 Temperature 36.6 C Temperature Source Temporal Artery Scan Pulse Rate 101 H 81 Pulse Rate [Apical] 79 Pulse Rhythm [Apical] Pulse Strength [Apical] Respiratory Rate 18 21 Respiratory Effort / Characteristics Non-Labored Respiratory Depth Normal Respiratory Pattern Regular Blood Pressure 106/74 Blood Pressure [Right Arm] 108/67 Blood Pressure Mean 84 Blood Pressure Mean [Right Arm] 80 Blood Pressure Position [Right Arm] Pulse Oximetry 99 99 Oxygen Delivery Method Room Air Room Air Sepsis Recent Fever Within 48 Hours No Sepsis New/Unexplained Change in Mental Status N/A Sepsis Action Taken by Nursing No Action Required 08/27/24 20:26 Temperature Temperature Source Pulse Rate Pulse Rate [Apical] 87 Pulse Rhythm [Apical] Regular Pulse Strength [Apical] Normal Respiratory Rate 17 Respiratory Effort / Characteristics Non-Labored Spontaneous Respiratory Depth Normal Respiratory Pattern Regular Blood Pressure Blood Pressure [Right Arm] 97/78 L Blood Pressure Mean Blood Pressure Mean [Right Arm] 84 Blood Pressure Position [Right Arm] Lying Pulse Oximetry 99 Oxygen Delivery Method Room Air Sepsis Recent Fever Within 48 Hours Sepsis New/Unexplained Change in Mental Status Sepsis Action Taken by Nursing Laboratory Data 08/27/24 17:50 08/27/24 17:50 Lab Results 08/27/24 Range/Units 17:50 WBC 11.42 H (4.8-10.8) K/ul RBC 4.78 (4.20-5.40) M/uL Hgb 13.5 (12.0-16.0) g/dl Hct 39.6 (37.0-47.0) % MCV 82.8 (80.0-100.0) fL MCH 28.2 (25.0-34.0) pg MCHC 34.1 (32.0-36.0) g/dL RDW Std Deviation 41.1 (36.4-46.3) fL RDW Coeff of Tony 13.6 (11.5-14.5) % Plt Count 318 (130-400) K/uL MPV 10.2 (9.4-12.4) fL Immature Gran % (Auto) 0.2 % Neut % (Auto) 68.0 % Lymph % (Auto) 25.9 % Daniels % (Auto) 4.6 % Eos % (Auto) 0.9 % Baso % (Auto) 0.4 % Neut # (Auto) 7.77 H (1.40-6.50) K/uL Lymph # (Auto) 2.96 (1.20-3.40) K/uL Daniels # (Auto) 0.52 (0.11-0.59) K/uL Eos # (Auto) 0.10 (0.00-0.50) K/uL Baso # (Auto) 0.05 (0.00-0.20) K/uL Immature Gran # (Auto) 0.02 (0.01-0.20) K/uL Sodium 139 (136-145) mmol/L Potassium 3.8 (3.5-5.1) mmol/L Chloride 105 (98-107) mmol/L Carbon Dioxide 24 (21-32) mmol/L Anion Gap 10 (3-11) BUN 17 (6-23) mg/dl Creatinine 0.61 (0.6-1.2) mg/dl Est Cr Clr Drug Dosing 83.4 ml/min eGFR 106.17 BUN/Creatinine Ratio 27.9 H (10-20) Glucose 100 H (70-99(Fasting)) mg/dl Calcium 9.9 (8.6-10.3) mg/dl Magnesium 1.9 (1.7-2.4) mg/dl Total Bilirubin 0.3 (0.2-1.0) mg/dl AST 16 (13-39) U/L ALT 16 (7-52) U/L Alkaline Phosphatase 64 (34-104) U/L Total Protein 7.1 (6.0-8.3) gm/dl Albumin 4.0 (3.4-5.0) gm/dl Globulin 3.1 (2.5-4.0) gm/dl Albumin/Globulin Ratio 1.3 (0.9-2) Lipase 24 (11-82) U/L TSH 2.256 (0.300-4.500) uIu/ml Administered Medications Acetaminophen (Ofirmev) 1,000 mg in 100 mls @ 400 mls/hr IV Q8H PRN PRN Reason: Pain Stop: 08/30/24 20:42 Last Admin: 08/27/24 23:06 Dose: 400 mls/hr Documented By: MLM Lactated Ringer's (Lr) 1,000 mls @ 80 mls/hr IV .[id number] GIFTY Stop: 08/28/24 20:59 Last Admin: 08/27/24 23:02 Dose: 80 mls/hr Documented By: MLM Ondansetron HCl (Ondansetron Inj 2 Mg/Ml 2 Ml Vial) 4 mg IV Q6H PRN PRN Reason: Nausea Stop: 09/26/24 20:42 Last Admin: 08/27/24 23:06 Dose: 4 mg Documented By: CIERRA Discontinued Medications Diphenhydramine HCl (Diphenhydramine 50 Mg/Ml Vial) 25 mg IV NOW STA Stop: 08/27/24 18:44 Last Admin: 08/27/24 18:54 Dose: 25 mg Documented By: JUSTUS Sodium Chloride (Nss) 1,000 mls @ 999 mls/hr IV .Q1H1M ONE Stop: 08/27/24 18:41 Last Infusion: 08/27/24 18:57 Dose: Infused Documented By: Admin: 08/27/24 17:49 Dose: 999 mls/hr Documented By: JUSTUS Acetaminophen (Ofirmev) 1,000 mg in 100 mls @ 400 mls/hr IV NOW STA Stop: 08/27/24 17:55 Last Infusion: 08/27/24 18:34 Dose: Infused Documented By: Admin: 08/27/24 17:48 Dose: 400 mls/hr Documented By: JUSTUS Famotidine (Pepcid 20mg Iv Push) 20 mg in 5 mls @ 2.5 mls/min IV NOW STA Stop: 08/27/24 18:28 Last Admin: 08/27/24 18:35 Dose: 2.5 mls/min Documented By: MITCHELL Pantoprazole Sodium (Protonix) 40 mg in 10 mls @ 5 mls/min IV NOW ONE Stop: 08/27/24 18:28 Last Admin: 08/27/24 18:34 Dose: 5 mls/min Documented By: MITCHELL Piperacillin Sod/Tazobactam Sod (Zosyn) 4.5 gm in 100 mls @ 200 mls/hr IV NOW ONE; Protocol Stop: 08/27/24 20:22 Last Infusion: 08/27/24 20:57 Dose: Infused Documented By: Admin: 08/27/24 20:22 Dose: 200 mls/hr Documented By: MARIO Ioversol (Optiray 320 100ml) 90 ml IV ONCE ONE Stop: 08/27/24 19:13 Last Admin: 08/27/24 19:13 Dose: 90 ml Documented By: DORA Ondansetron HCl (Ondansetron Inj 2 Mg/Ml 2 Ml Vial) 4 mg IV NOW STA Stop: 08/27/24 17:42 Last Admin: 08/27/24 17:48 Dose: 4 mg Documented By: JUSTUS Imaging Data Radiologist's Impression: Abdomen/Pelvis CT 08/27/24 17:41 Clinical History: Abdominal pain and constipation Technique: Axial computed tomography images were obtained of the abdomen and pelvis after the administration of intravenous contrast. Comparison is made to the prior CT dated 07/14/2017. Findings: The liver is overall of normal size, attenuation, and contour with no sign of cirrhosis or significant fatty infiltration. The previously seen mass in the right hepatic lobe is not as conspicuous, likely due to the slightly different phase of contrast-enhancement. The portal vein is patent. The gallbladder has been removed. No bile duct dilatation is noted. The spleen is of normal size. No focal splenic lesion is evident. The pancreas appears normal with no sign of acute or chronic pancreatitis and no mass lesion noted. The pancreatic duct is of normal caliber. The adrenal glands appear unremarkable. No definite renal or proximal ureteral calculi are seen on this contrast-enhanced study. There is no hydronephrosis or perinephric stranding. No renal mass lesion is identified. There is a 1 cm left renal cyst The aorta is of normal caliber. No abdominal adenopathy is seen. The stomach appears normal. There is no sign of small bowel obstruction. There is suspected acute diverticulitis of the distal sigmoid colon, with a small amount of adjacent pelvic ascites. No free intraperitoneal air is identified. No distal ureteral or bladder calculi are seen. No bladder mass lesion is evident. The iliac arteries are of normal caliber. No pelvic adenopathy is noted. There is a suspected 2.7 cm leiomyoma in the anterior uterine body The lungs bases appear clear. Mild lumbar scoliosis and degenerative disc disease is seen. No fracture is identified. No focal osseous lesion is seen Impression: 1. Suspected acute diverticulitis of the sigmoid colon. There is no sign of perforation or abscess formation 2. Small amount of free pelvic fluid 3. No definite change in a liver mass, not as conspicuous due to a different phase of contrast enhancement. As described previously, this is indeterminate in nature but may represent focal nodular hyperplasia 4. Small left renal cyst 5. Uterine leiomyoma Electronically signed by Jhoan Sandoval 08-27-2024 7:35 PM Chest X-Ray 08/27/24 17:42 Clinical History: Chest pain Technique: A frontal view of the chest was obtained Comparison is made to the prior examination dated 06/06/2023 Findings: There are no confluent pulmonary infiltrates. The heart size is within normal limits. No pleural effusion or pneumothorax is seen. There is no definite pulmonary nodule. No fracture is noted. No foreign body is seen Impression: No active disease Electronically signed by Jhoan Sandoval 08-27-2024 6:29 PM Discharge Plan Visit Data Chief Complaint: Abdominal Pain Stated Complaint: STOMACH PAIN, NAUSEA ED Provider: J Luis Cooley ED Midlevel Provider: Rosy Blake Discharge Problem: Sigmoid diverticulitis, Constipation Patient Disposition: Admitted As Inpatient Condition: Good Discharge Instructions Interventions: ED Discharge Assessment Last Done: 08/27/24 22:10 Discharge Problem: Constipation Qualifiers: Constipation type: unspecified constipation type Qualified Code(s): K59.00 - Constipation, unspecified
[2024-08-27] MEDS: ACETAMINOPHEN 1,000 MG/100 ML VIAL IV STA (17:48)
[2024-08-27] MEDS: ONDANSETRON INJ 2 MG/ML 2 ML VIAL IV STA (17:48)
[2024-08-27] MEDS: SODIUM CHLORIDE 0.9% 1,000 ML IV ONE (17:49)
--- NOTE | 2024-08-27 18:29 | XRay Report ---
Clinical History: Chest pain Technique: A frontal view of the chest was obtained Comparison is made to the prior examination dated 06/06/2023 Findings: There are no confluent pulmonary infiltrates. The heart size is within normal limits. No pleural effusion or pneumothorax is seen. There is no definite pulmonary nodule. No fracture is noted. No foreign body is seen Impression: No active disease Electronically signed by Jhoan Sandoval 08-27-2024 6:29 PM
[2024-08-27] MEDS: PANTOprazole 40 MG/10 ML SYR IV ONE (18:34)
[2024-08-27] MEDS: FAMOTIDINE 20MG IV PUSH 20 MG/5 ML SYR IV STA (18:35)
[2024-08-27 18:36] LABS: Basophils # (auto) 0.05 K/uL (0.00-0.20); Basophils % (auto) 0.4 %; Eosinophils % (auto) 0.9 %; Hematocrit (blood only) 39.6 % (37.0-47.0); Hemoglobin 13.5 g/dl (12.0-16.0); Immature Granulocytes # (auto) 0.02 K/uL (0.01-0.20); Immature Granulocytes % (auto) 0.2 %; Lymphocytes # (auto) 2.96 K/uL (1.20-3.40); Lymphocytes % (auto) 25.9 %; Mean Corpuscular Hemoglobin 28.2 pg (25.0-34.0); Mean Corpuscular Hgb Conc 34.1 g/dL (32.0-36.0); Mean Corpuscular Volume 82.8 fL (80.0-100.0); Mean Platelet Volume 10.2 fL (9.4-12.4); Monocytes # (auto) 0.52 K/uL (0.11-0.59); Monocytes % (auto) 4.6 %; Neutrophils # (auto) 7.77 K/uL (1.40-6.50); Platelet Count 318 K/uL (130-400); RDW Coefficient of Variation 13.6 % (11.5-14.5); RDW Standard Deviation 41.1 fL (36.4-46.3); Red Blood Count 4.78 M/uL (4.20-5.40); White Blood Count 11.42 K/ul (4.8-10.8)
[2024-08-27 18:47] LABS: Albumin Globulin Ratio 1.3 (0.9-2); BUN Creatinine Ratio 27.9 (10-20); Bilirubin,Total 0.3 mg/dl (0.2-1.0); Calcium 9.9 mg/dl (8.6-10.3); Creatinine Clr Calc Pharmacy 83.4 ml/min; Globulin 3.1 gm/dl (2.5-4.0); Magnesium 1.9 mg/dl (1.7-2.4); Potassium 3.8 mmol/L (3.5-5.1); Total Protein 7.1 gm/dl (6.0-8.3)
[2024-08-27] MEDS: diphenhydrAMINE 50 MG/ML VIAL IV STA (18:54)
[2024-08-27 19:02] LABS: Thyroid Stimulating Hormone 2.256 uIu/ml (0.300-4.500)
[2024-08-27] MEDS: OPTIRAY 320 100ml IV ONE (19:13)
--- NOTE | 2024-08-27 19:35 | CT Scan Report ---
Clinical History: Abdominal pain and constipation Technique: Axial computed tomography images were obtained of the abdomen and pelvis after the administration of intravenous contrast. Comparison is made to the prior CT dated 07/14/2017. Findings: The liver is overall of normal size, attenuation, and contour with no sign of cirrhosis or significant fatty infiltration. The previously seen mass in the right hepatic lobe is not as conspicuous, likely due to the slightly different phase of contrast-enhancement. The portal vein is patent. The gallbladder has been removed. No bile duct dilatation is noted. The spleen is of normal size. No focal splenic lesion is evident. The pancreas appears normal with no sign of acute or chronic pancreatitis and no mass lesion noted. The pancreatic duct is of normal caliber. The adrenal glands appear unremarkable. No definite renal or proximal ureteral calculi are seen on this contrast-enhanced study. There is no hydronephrosis or perinephric stranding. No renal mass lesion is identified. There is a 1 cm left renal cyst The aorta is of normal caliber. No abdominal adenopathy is seen. The stomach appears normal. There is no sign of small bowel obstruction. There is suspected acute diverticulitis of the distal sigmoid colon, with a small amount of adjacent pelvic ascites. No free intraperitoneal air is identified. No distal ureteral or bladder calculi are seen. No bladder mass lesion is evident. The iliac arteries are of normal caliber. No pelvic adenopathy is noted. There is a suspected 2.7 cm leiomyoma in the anterior uterine body The lungs bases appear clear. Mild lumbar scoliosis and degenerative disc disease is seen. No fracture is identified. No focal osseous lesion is seen Impression: 1. Suspected acute diverticulitis of the sigmoid colon. There is no sign of perforation or abscess formation 2. Small amount of free pelvic fluid 3. No definite change in a liver mass, not as conspicuous due to a different phase of contrast enhancement. As described previously, this is indeterminate in nature but may represent focal nodular hyperplasia 4. Small left renal cyst 5. Uterine leiomyoma Electronically signed by Jhoan Sandoval 08-27-2024 7:35 PM
[2024-08-27] MEDS: PIPERACILLIN/TAZOBACTAM 4.5 GM/100 ML BAG IV ONE (20:22)
--- NOTE | 2024-08-27 20:51 | History & Physical Report ---
Date of Service August 27, 2024 Assessment & Plan (1) Sigmoid diverticulitis: (2) Constipation: Plan Patient presented to the hospital with abdominal pain, nausea/vomiting and constipation for several days. Came to the ED on 08/22 for mechanical fall; was prescribed oxycodone which likely related to the constipation. Workup in the ED showed findings significant for acute sigmoid colitis. Acute sigmoid diverticulitis Constipation Patient presents with abdominal pain, nausea/vomiting and constipation for several days Leukocytosis present on admission CT abdomen pelvis shows suspected acute diverticulitis; no signs of perforation/abscess. Bowel rest; will try clear liquid diet. continue Zosyn for sigmoid diverticulitis Will avoid laxatives given finding of sigmoid diverticulitis for the time being; GI consulted for recommendation in setting of acute diverticulitis with severe constipation. IV fluids with LR at 80 cc/h Tylenol for pain control Chronic conditions; Mood disorder; continue home meds Continue eyedrops for corneal abrasion Time spent evaluating patient, direct bedside care, chart review, placing orders, interpretation of diagnostic studies, discussion with consultants, patient, and family members, as well as other required patient management activities is 75 minutes Please note the above document was generated using voice recognition software. It may contain grammatical, syntax or spelling errors. Any formal questions or concerns about the content, text or information contained within the body of this dictation should be directly addressed to the provider for clarification History of Present Illness Chief Complaint: Abdominal pain for 3 days Constipation for the 3 days Primary Care Provider: Andressa Lees DO History obtained from interview with the patient and chart review Past medical history of prediabetes, hypertension, mood disorder, ADHD. Presented to the ED on August 22, 2024 with mechanical fall. Underwent workup/imaging which did not show any acute finding. She was discharged on ox ycodone and prednisone. Patient again came to the ED on August 23, 2024; for right eye pain. Was recommended Cipro and steroids drops on right eye every 4 hours for 7 days. She presented to the hospital with abdominal pain, nausea and constipation for last few days. Abdominal pain is on left lower quadrant, radiating to the back. It is associated with nausea/vomiting; containing food particles. She reports chills; no complaint of fever. She also reports of constipation for several days; has tried MiraLAX, enema without any success. She is passing gas. Lab work in the ED showed leukocytosis. CT abdomen and pelvis shows sigmoid diverticulitis. Last colonoscopy in August 2022; found to have internal hemorrhoids, moderate diverticulosis in sigmoid colon, and 4 mm rectal polyp Social history; former smoker, no alcohol or drug use Allergies Allergy/AdvReac Type Severity Reaction Status Date / Time tramadol Allergy Severe SHORT OF Verified 08/27/24 21:08 BREATH hydromorphone [From Dilaudid] Allergy Intermediate RASH/VOMITI Verified 08/27/24 21:08 NG latex Allergy Intermediate ITCHING Verified 08/27/24 21:08 morphine Allergy Intermediate Rash and Verified 08/27/24 21:08 nausea and vomiting Home Medications Medication Instructions Recorded Confirmed Type montelukast 10 mg tablet 10 mg PO HS 03/22/19 08/27/24 History (Singulair) cyclobenzaprine 10 mg tablet 10 mg PO HS PRN muscle spasm 11/12/22 08/27/24 History dicyclomine 20 mg tablet 20 mg PO QID PRN Abdominal Pain 11/12/22 08/27/24 History multivitamin 1 tab PO QAM 11/12/22 08/27/24 History valacyclovir 500 mg tablet 500 mg PO Q12H PRN as directed 11/12/22 08/27/24 History albuterol sulfate 90 mcg/actuation 2 puff inhalation Q6 PRN Wheezing 08/27/24 08/27/24 History aerosol inhaler alprazolam 1 mg tablet 1 mg PO BID PRN anxiety attacks 08/27/24 08/27/24 History ascorbic acid (vitamin C) 500 mg 500 mg PO QAM 08/27/24 08/27/24 History tablet (Vitamin C) ciprofloxacin HCl 0.3 % eye drops 1 drp OPR QID 08/27/24 08/27/24 History dextromethorphan IR 45 1 tab PO BID 08/27/24 08/27/24 History mg-bupropion ER 105 mg biphasic tablet (Auvelity) diazepam 10 mg tablet 5 - 10 mg PO BID 08/27/24 08/27/24 History fluticasone propionate 50 2 spray intranasal QAM PRN 08/27/24 08/27/24 History mcg/actuation nasal Congestion spray,suspension lisdexamfetamine 30 mg capsule 30 mg PO QAM 08/27/24 08/27/24 History lisinopril 10 mg tablet 10 mg PO QAM 08/27/24 08/27/24 History melatonin 10 mg tablet,extended 10 mg PO HS 08/27/24 08/27/24 History release minoxidil 2.5 mg tablet 2.5 mg PO QAM 08/27/24 08/27/24 History prednisolone acetate 1 % eye 1 drp OPR QID 08/27/24 08/27/24 History drops,suspension quetiapine 25 mg tablet 25 mg PO HS 08/27/24 08/27/24 History semaglutide (weight loss) 0.5 0.5 mg subcut WK 08/27/24 08/27/24 History mg/0.5 mL subcutaneous pen injector (Wegovy) temazepam 22.5 mg capsule 22.5 mg PO HS Sleep 08/27/24 08/27/24 History zinc gluconate 50 mg tablet 50 mg PO QAM 08/27/24 08/27/24 History Past Med/Surg History Problem List (Updated 08/27/24 @ 20:57 by Sundeep Lacey MD) Constipation Sigmoid diverticulitis Corneal abrasion, right (Acute) History of lumbar surgery (Acute) Left leg pain (Acute) Left hip pain (Acute) Fall (Acute) Lumbar back pain (Acute) Lumbar disc herniation with radiculopathy Insomnia Fall (Acute) Contusion of multiple sites (Acute) Contusion of multiple sites (Acute) Medical History Depression Left lumbar radiculopathy Social History Smoking Status: Never smoker Second Hand Exposure: No; Do You Dip or Chew Tobacco: No; Hx Alcohol Use: No Hx Substance Use: No Preferred Language: Finnish Communication Ability: Effective Security Dispatcher Required: No Beliefs That Will Affect Care: None Current Living Situation: Spouse Current Living Situation Comment: lives in split level home with Feels Safe at Home: Yes Assistive Devices: Walker Physical Exam Physical Exam: Constitutional: Awake, alert oriented x 3. Appears tired Respiratory: normal respiratory effort, lungs clear to auscultation, no wheeze, rales, rhonchi. Normal insp/exp effort, no accessory muscle use Cardiovascular: RRR, no murmur, no edema Vessels: no JVD or carotid bruit Chest: normal inspection of chest Abdomen: Tenderness present in left lower quadrant. Bowel sounds present Musculoskeletal: no cyanosis or clubbing, extremities motor strength 5/5 Skin: no rashes, warm and dry normal turgor Neurologic: PERRL, EOMI, accommodation nl, no face palsy, no dysarthria CN's II- XI intact bilaterally and moves all extremities Psychiatric: A+Ox3, euthymic affect Results & Data Results & Data Vital Signs (Past 12 Hours) Vital Signs Temp Pulse Pulse Resp BP BP Pulse Ox 08/27/24 20:26 87 17 97/78 L 99 08/27/24 18:54 81 08/27/24 18:54 79 21 108/67 99 08/27/24 17:14 36.6 C 101 H 18 106/74 99 O2 Del Method 08/27/24 20:26 Room Air 08/27/24 18:54 08/27/24 18:54 Room Air 08/27/24 17:14 Room Air Code Status & VTE Plan VTE Prophylaxis Plan VTE Prophylaxis will be ordered: Yes
[2024-08-27] MEDS ORDERED: DICYCLOMINE HCL 20 MG TAB PO PRN (22:49)
[2024-08-27] MEDS ORDERED: CYCLOBENZAPRINE HCL 10 MG TAB PO PRN (22:49)
[2024-08-27 22:56] LABS: Appearance Urine Clear (Clear); Bacteria Urine Automated None Seen (None Seen); Bilirubin Urine Negative (Negative); Blood Urine Negative (Negative); Cast Urine Automated 0-2 /lpf (0-2); Color Urine Yellow; Epithelial Cell Urine Auto 0-2 /hpf (0-2); Glucose Urine UA Negative (Negative); Ketones Urine Negative (Negative); Leukocyte Esterase Urine 1+ (Negative); Nitrite Urine Negative (Negative); Protein Urine Negative (Negative); RBC Urine Automated 0-2 /hpf (0-2); Specific Gravity Urine 1.045 (1.000-1.030); Urobilinogen Urine Negative (Negative); WBC Urine Automated 0-5 /hpf (0-5); pH Urine 8.5 (4.5-7.5)
[2024-08-27] MEDS: LACTATED RINGER'S 1,000 ML IV SCH (23:02)
[2024-08-27] MEDS: ACETAMINOPHEN 325 MG TAB PO PRN (23:02)
[2024-08-27] MEDS: ONDANSETRON INJ 2 MG/ML 2 ML VIAL IV PRN (23:06)
[2024-08-27] MEDS: ACETAMINOPHEN 1,000 MG/100 ML VIAL IV PRN (23:06)
[2024-08-28] MEDS: PIPERACILLIN/TAZOBACTAM 4.5 GM/100 ML BAG IV SCH (01:20)
[2024-08-28] MEDS: MELATONIN 3 MG TAB PO SCH (01:20)
[2024-08-28] MEDS: QUEtiapine FUMARATE 25 MG TABLET PO SCH (01:21)
[2024-08-28] MEDS: TEMAZEPAM 7.5 MG CAPSULE PO SCH (01:35)
--- OUTSIDE RECORDS SUMMARY | 2024-08-28 02:16 | External Medical Summary | Summary of Care ---
Author Name Unknown Organization [facility] Address [address] [place] [address] Phone [phone] Care Team Providers Care Auto Rental Clerk Name Role Phone Andressa Lees DO Primary Care Provider [phone] Reason for Visit * Reason Onset Date Comments Precert Approved 08/21/2024 jaqui Encounter Details Date Type Department Care Team (Late st Contact Info) Description 08/21/2024 Telephone Nutrition & Weight Management, [place] [address] [place] [address] Joyce Anglin CRNP [address] [place] [address] Precert Approved ( jaqui) Allergies Active Allergy Reactions Criticality Noted Date Comments Hydromorphone Hcl 07/17/2017 Vomiting Rash Latex Itching 01/30/2016 Tramadol Other (Please comment) 11/21/2013 sob documented as of this encounter (statuses as of 08/26/2024) Medications NYSTATIN 029301 UNIT/ML MT SUSPIndications: Thrush, oral 5 ML 4 TIMES DAILY 150 mL 0 01/03/20 14 Active Additional Information Patient taking differently:Swish & SwallowPRN, Reported on 08/11/2024 LORazepam (ATIVAN) 1 MG Tablet Take 1 Tablet by mouth in the morning and 1 Tablet at noon and 1 Tablet before bedtime. Active multivitamin (MVI) Tablet Take 1 Tablet by mouth in the morning. Active Cholecalciferol (VITAMIN D) 2000 UNITS Capsule Take 2,000 Units by mouth in the morning. Active Amphetamine-Dext roamphetamine 10 MG Oral Tablet Take 1 Tablet by mouth in the morning. Active ondansetron ODT (ZOFRAN) [address] 1 Tab on tongue every 8 hours as needed for Nausea. dissolve on tongue. 21 Tab 1 07/15/19 18 Active dicyclomine (BENTYL) 20 MG Tablet Take 1 Tab by mouth 4 times a day as needed (for abdominal pain). 40 Tab 1 06/13/20 18 Active buPROPion HCl ER (SR) 150 MG Oral Tablet Extended Release 12 Hour (Wellbutrin SR) Take 1 Tablet by mouth in the morning and 1 Tablet before bedtime. 11/05/19 21 Active Zolpidem Tartrate ER 12.5 MG Oral Tablet Extended Release Take 1 Tablet by mouth at bedtime as needed for Sleep. 0 05/21/20 22 Active Fluocinolone Acetonide Scalp 0.01 % External Oil (Whitaker-Smoothe/F S)Indications:Se borrheic dermatitis Apply topically to affected area daily. Apply to scalp 118.28 mL 1 04/04/20 23 Active Tobramycin 0.3 % Ophthalmic Solution (Aktob) 10/31/19 23 Active Clobetasol Propionate 0.05 % External SolutionIndicati ons:Scalp psoriasis Apply to scalp once daily 50 mL 5 09/19/19 24 Active Montelukast Sodium 10 MG Oral Tablet (Singulair) TAKE 1 TABLET BY MOUTH ONCE DAILY 90 Tablet 3 10/01/19 24 Active QUEtiapine Fumarate 25 MG Oral Tablet (SEROquel) Take 4-8 Tablets by mouth at bedtime. 09/30/19 24 Active Fluticasone Propionate 50 MCG/ACT Nasal SuspensionIndica tions:ETD (Eustachian tube dysfunction), bilateral Administer 2 Sprays into each nostril in the morning. 15.8 mL 2 10/28/19 24 Active Temazepam 22.5 MG Oral Capsule Take 1 Capsule by mouth at bedtime. Active diazePAM 5 MG Oral Tablet (Valium) Take 1-2 Tablets by mouth in the morning and 1-2 Tablets before bedtime. Active Cyclobenzaprine HCl 10 MG Oral Tablet (Flexeril)Indica tions:Neck pain Take 1 Tablet by mouth at bedtime as needed for Muscle spasms. 30 Tablet 12/04/19 24 Active valACYclovir HCl 1 GM Oral Tablet (Valtrex) Take 2 Tablets by mouth in the morning and 2 Tablets before bedtime. for cold sores. 60 Tablet 11 12/04/19 24 Active Additional Information Patient taking differently:2,000 mg OralPRN, for cold sores, Reported on 08/11/2024 Naproxen 500 MG Oral Tablet (Naprosyn)Indica tions:Neck pain Take 1 Tablet by mouth 2 times a day as needed for Pain. 60 Tablet 1 12/04/19 24 Active Lisinopril 10 MG Oral Tablet (Prinivil)Indica tions:Elevated blood pressure, situational Take 1 Tablet by mouth in the morning. 90 Tablet 3 12/04/19 24 Active Temazepam 15 MG Oral Capsule (Restoril) Take 1 Capsule by mouth at bedtime as needed for Sleep. Active Ketoconazole 2 % External Shampoo (Nizoral)Indicat ions:Scalp psoriasis Lather into scalp in shower, leave in for 5 minutes then rinse. Do this 3x/week 120 mL 1 01/15/20 24 Active Auvelity 45-105 MG Oral Tablet Extended Release (Dextromethorpha n-buPROPion ER 45-105 mg per tab) Take by mouth. Activ e Albuterol Sulfate HFA 108 (90 Base) MCG/ACT Inhalation Aerosol SolutionIndicati ons:URI with cough and congestion Inhale 2 Puffs by mouth every 6 hours as needed for Wheezing or Shortness of Breath. 18 g 02/23/20 24 Active Lisdexamfetamine Dimesylate 20 MG Oral Capsule (Vyvanse) Take 1 Capsule by mouth in the morning. Every morning.. 02/21/20 24 Active Zoryve 0.3 % External Foam (Roflumilast (Antiseborrheic) )Indications:Sca lp psoriasis Apply foam to rash in ears and scalp once daily 60 g 3 06/08/20 24 Active Wegovy 0.5 MG/0.5ML Subcutaneous Solution Auto-injector (Semaglutide-Alexei ght Management)Indic ations:Abnormal weight gain,Encounter for weight management,Predi abetes,Elevated ALT measurement,HTN, goal below 140/90 INJECT 0.5 MG SUBCUTANEOUSLY (UNDER THE SKIN) ONCE WEEKLY 2 mL 1 07/27/19 Active Minoxidil 2.5 MG Oral Tablet (Loniten)Indicat ions:Telogen effluvium Take 1/2 tab daily for 2 weeks, then increase to 1 tab daily 90 Tablet 1 08/11/19 25 Active documented as of this encounter (statuses as of 08/26/2024) Active Problems Problem Noted Date Diagnosed Date HTN, goal below 140/90 06/26/2024 Elevated ALT measurement 06/26/2024 Prediabetes 06/18/2022 Overview: Per Prediabetes protocol History of tobacco use 05/21/2022 Obsessive-compulsive disorder 05/21/2022 Depression with anxiety 05/21/2022 Attention deficit hyperactivity disorder (ADHD) 05/21/2022 Perimenopausal vasomotor symptoms 09/04/2017 Seborrheic dermatitis 12/16/2014 Overview (04/08/2017): ICD-10 update of inactive term Tibialis posterior tendon tear, nontraumatic BACKACHE NOS 04/19/2005 documented as of this encounter (statuses as of 08/26/2024) Immunizations Name Administration Dates Next Due COVID-19, MRNA-LNP, PF, 50 M CG/0.5 mL, 12 YRS AND ABOVE, IM (MODERNA-Spikevax) 04/26/2023 Seasonal Influenza, MDCK, Tr ivalent, PF, (Flucelvax) 05/18/2024,04/26/2023,05/18/2022 Seasonal Influenza, PF, 6 M & above, IM , (FluLaval or Fluzone) 05/12/2018 TDAP (age 10 and older)(Boostrix) 06/20/2018 documented as of this encounter Social History Tobacco Use Types Packs/Day Years Used Date Smoking Tobacco: Former Cigarettes 0.5 33 Smokeless Tobacco: Former Comments:started age 15 Alcohol Use Standard Drinks/Week Comments Not Currently 0 (1 standard drink = 0.6 oz pur e alcohol) 1 glass of wine a day PHQ-2 Answer Date Recorded PHQ Adult Total Score 14 12/28/2023 Hunger Vital Sign Answer Date Recorded Within the past 12 months, y ou worried that your food would run out before you got the money to buy more. Never true 12/28/19 24 Within the past 12 months, t he food you bought just didn't last and you didn't have money to get more. Never true 12/28/2023 Childcare Answer Date Recorded Do you feel overwhelmed with taking care of a child, family member or friend? No 12/28/2023 Does your family need help f inding childcare? (Household - for ages 0-17 years) Not on file 12/28/2023 Clothing Answer Date Recorded Have you been unable to get clothing when it was really needed? No 12/28/2023 Is your family able to get c lothes or diapers when needed? (Household - for ages 0-17 years) Not on file 12/28/2023 Personal Safety Answer Date Recorded Do you feel unsafe or have concerns for your saf ety? No 12/28/2023 Do you have concerns for you r family's safety? (Household - for ages 0-17 years) Not on file 12/28/2023 Utilities Answer Date Recorded Do you have trouble paying y our heating, water, or electric bill? No 12/28/2023 Is your family able to pay t he heat, water, or electric bill? (Household - for ages 0-17 years) Not on file 12/28/2023 Does your family have access to good internet? (Household - for ages 0-17 years) Not on file 12/28/2023 Employment Status Answer Date Recorded Are you unemployed or without regular income? No 12/28/2023 Does the household have a re lar source of income? (Household - for ages 0-17 years) Not on file 12/28/2023 Social Connections Answer Date Recorded How often do you feel lonely or isolated from th ose around you? Often 12/28/2023 Financial Resource Strain Answer Date R ecorded Do you have any trouble payi ng for your medications, or do you think you might in the future? No 12/28/2023 Does your family have troubl e paying for medicine? (Household - for ages 0-17 years) Not on file 12/28/2023 Transportation Needs Answer Date Record ed Do you have trouble getting a ride to medical visits or work? (Adult - for ages 18 years and over) Not on file 12/28/2023 Does your family have a hard time getting a ride to doctors visits? (Household - for ages 0-17 years) Not on file 12/28/2023 Has lack of transportation k ept you from medical appointments, meetings, work, or from getting things needed for daily living? Check all that apply. No 12/28/2023 Do you (or your family) have trouble finding or paying for a ride (transportation)? (Household - for ages 0-17 years) Not on file 12/28/2023 Housing Stability Answer Date Recorded Do you currently live in a s helter or have no steady place to sleep at night? Yes 12/28/2023 Do you think you are at risk of becoming homeless? (Adult - for ages 18 years and over) Not on file 12/28/2023 Does your family worry about paying for your home or becoming homeless? (Household - for ages 0-17 years) Not on file 0 12/28/2023 Are you homeless or worried that you might be in the future? No 12/28/2023 Are you (or your family) ashley eless or worried that you might be in the future? (Household - for ages 0-17 years) Not on file Food Insecurity Answer Date Recorded Do you need food for this week? No 12/28/2023 Are you able to get enough f ood for your family? (Household - for ages 0-17 years) Not on file 12/28/2023 Does your family need food t his week? (Household - for ages 0-17 years) Not on file 12/28/2023 Do you always have enough fo od for your family? (Household - for ages 0-17 years) Not on file 12/28/2023 Food Insecurity Answer Date Recorded Within the past 12 months, y ou worried that your food would run out before you got the money to buy more. Never true 12/28/19 24 Within the past 12 months, t he food you bought just didn't last and you didn't have money to get more. Never true 12/28/2023 Do you need food for this week? 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 Approved/Denied: approved Drug Name and Formulation: Wegovy 0.5mg/0.5ml pen How Prescribed(directions/sig): Inject 0.5mg weekly Qty and Day Supply: 2ml per 28 days Did you receive insurance information from outside the chart? No, received insurance information within the chart Valid auth start date: 08/21/24 Valid auth end date: 02/18/25 Rx Insurance Info: [employer] [place] Reference #: [id number] Erma Padgett Medication Licensing Analyst III [facility] 08/26/24,10:23 AM . * Telephone Encounter - Andrea Willingham OSA - 08/21/2024 9:51 AM EST Wegovy 0.5mg/0.5ml Overwt - E66.3 Abnormal Wt. Gain - R63.5 Prediabetes - R73.03 Joyce Anglin documented in this encounter Plan of Treatment Upcoming Encounters Date Type Department Care Team (Late st Contact Info) Description 08/27/2024 8:40 AM EST Office Visit Family [facility] [address] [facility] [place] [address] Andressa Lees DO [address] [place] [address] 09/18/2024 8:15 AM EDT Office Visit D[facility]atology [facility] [address] [place], [place] [address] Conor Farfan MD [address] [place] [address] Scheduled Procedures Name Priority Associated Diagnoses Date/Ti me COLONOSCOPY FLEXIBLE PROXIMA L DIAGNOSTIC Recall History of colonic polyps Health Maintenance Due Date Last Done Comments HIV Screening 1985 Albumin/Creatinine Ratio 1988 Hepatitis B Vaccine (1 of 3 - 19+ 3-dose series) 1989 Cologuard 2015 Fecal Occult Blood Test 2015 Sigmoidoscopy 2015 Pneumococcal Vaccine: 50+ Years (1 of 1 - PCV) 2020 Zoster Vaccines (1 of 2) 2020 COVID-19 Vaccine (2 - season) 2024 04/26/2023 GFR 12/10/2024 12/11/2023, 05/08, 01/24/2017, Additional history exists Depression Monitoring 12/27/2024 12/28/2023 HbA1c 12/30/2024 12/31/2023, 04/0 11/2022, 06/12/2022, Additional history exists Mammogram 07/15/2025 07/15/2024, 06/07, 05/24/2022, Additional history exists Pap Smear 09/06/2025 09/06/2022, 02/06, 02/27/2019, Additional history exists Cervical Cancer Screening 09/07/2027 HPV/Co-Test 09/07/2027 09/06/2022 Colonoscopy 10/25/2027 10/24/2022, 10/06, 01/29/2017 Colorectal Cancer Screening 10/25/2027 DTap/Tdap Vaccines (2 - Td or Tdap) 06/20/2028 06/20/2018 Lipid Panel 12/10/2028 12/11/2023, 04/0 11/2022, 06/12/2022, Additional history exists RETIRED - COLONOSCOPY-EVERY 5 YRS AGES 18-100 Discontinued 10/24/2022, 10/24/2022, 01/29/2017 Influenza Vaccine (FLU shot) Completed 05/18/2024, 04/26/2023, 05/18/2022, Additional history exists HPV (Gardasil) Vaccine Aged Out No lo nger eligible based on patient's age to complete this topic MENINGOCOCCAL (MENACTRA/MENVEO) Aged Out No longer eligible based on patient's age to complete this topic Meningitis B Vaccine (Bexsero/Trumemba) Aged Out No longer eligible based on patient's age to complete this topic documented as of this encounter Medical Devices Implanted Type Area Wet Trimmer Device Identifier Shelf Expiration Date Model / Serial / Lot Screw [employer] 5.5x15mm - [id number] Implanted:Qty: 1 on 12/29/2013 at [facility] Right: Foot [employer] 02/04/2015 [id number] / / [id number] Screw Cannul 6.5mm 16t 208.406 - [id number] Implanted:Qty: 1 on 12/29/2013 at [facility] Right: Foot [employer]THES 208.406 / / Screw Cannul 4.5mm 214.542 - [id number] Implanted:Qty: 1 on 12/29/2013 at [facility] Right: Foot [employer] 214.542 / / documented as of this encounter Advance Directives * Full Code (Latest Code Status on File) Date Activated Date Inactivated Comments 12/29/2013 12:27 PM 12/29/2013 6:34 PM This order reflects the patients wishes and were consensually agreed upon. Care Teams Auto Rental Clerk Relationship Specialty Start Date End Date Andressa Lees DO [address] [place] [address] PCP - General Family Medicine 05/24/22 documented as of this encounter
[2024-08-28] MEDS: diphenhydrAMINE 50 MG/ML VIAL IV STA (02:27)
--- NOTE | 2024-08-28 07:55 | Hospitalist Progress Note ---
Date of Service August 28, 2024 Assessment & Plan (1) Sigmoid diverticulitis: (2) Constipation: Plan Patient presented to the hospital with abdominal pain, nausea/vomiting and constipation for several days. Came to the ED on 08/22 for mechanical fall; was prescribed oxycodone which likely related to the constipation. Workup in the ED showed findings significant for acute sigmoid colitis. Acute sigmoid diverticulitis Constipation presents with abdominal pain, N/V and constipation for several days Leukocytosis present on admission 11.42; resolved 8.08 CT abdomen pelvis shows suspected acute diverticulitis; no signs of perforation/abscess. Bowel rest; will try clear liquid diet; advance as tolerated starting 08/29 continue IV Zosyn for sigmoid diverticulitis avoid laxatives given finding of sigmoid diverticulitis for the time being GI consulted for acute diverticulitis with severe constipation; mg+ Citrate ordered to assist with moving bowel. General sx consult given recurrent diverticulitis and eval for possible L hemicolectomy once acute infection resolves IV fluids with LR at 80 cc/h; continue for now until PO intake improving. Goal to stop IV fluids on 08/29 Tylenol and Ketorolac for pain control Drug induced Pruritis: Left lateral neck secondary to opioids; she reports being sensitive to opioids She received a morphine injection for her back pain as well and reports itching. No s/s of stridor, angioedema - no signs of airway compromise Benadryl PRN; consider hydrocortisone cream Chronic conditions: Mood disorder; continue home meds Continue eyedrops for corneal abrasion I spent a total of 56 minutes coordinating, documenting, and providing care for this patient excluding time spent inthe performance of separately billed services or time spent by another provider/QHP. Admission and Anticipated Discharge Date Admission Date: August 27, 2024 Supervising Physician Co-Signing Physician Notes Pt was seen and examined by myself, Laine Rodgers MD on the day of service. Care was coordinated with STEPHIE Rausch. 54yoF with diverticulitis. Concern for severe constipation as well. On exam diffusely tender in the abdomen though more so in LLQ. Bowel sounds present. She states she has been passing gas but no BM for a week. Surgery consult, appreciate recs GI consulted given concern for constipation, appreciate recs IV abx, prn pain meds, advance diet as tolerated. Otherwise as above. I spent a total [id number] coordinating, documenting, and providing care for this patient excluding time spent in the performance of separately billed services Subjective Met with patient at bedside. She is c/o LLQ pain 10/15--> improved with Ketorolac IV. She explained that she fell last weekend on 08/22 and was given Oxycodone and developed opioid induced constipation and also a adverse reaction to the oxycodone (itching) which she states started over the weekend last . Reports her last BM on Tuesday 08/22 and she had an injection over the weekend last of pain medication. Her abdominal pain started afterwards. She has a history of moderate sigmoid diver ticulitis. Her last C-scope was in 2022. Denies TRUONG, dizziness, SOB, chest pain, palpitations, N/V/D Gi saw pt as outlined below. Review of Systems Review of Systems: Neuro: (-) Falls, trauma, slurred speech HEENT: (-) TRUONG, dizziness, dysphagia, visual or auditory changes CV: (-) CP, palpitations, swelling Resp: (-) SOB GI: (-) appetite changes, N/V/D, bowel changes. (+) LLQ abdominal pain : (-) urinary changes Skin: (-) rashes (+) itching and redness on right lateral neck Psych: (-) anxiety, depression Physical Exam Physical Exam: Neuro: AAOx4, PERRLA, no aphagia, memory changes, CNII-XII grossly intact HEENT: head normocephalic, moist mucus membranes CV: S1/S2, (-) M/G/R, (-) edema, cap refill < 3 seconds (-) angioedema or stridor Resp: Lungs CTA in all siegel. On RA GI: Abdomen S/NT/ND,hypoactive bowel sounds x4, LLQ abdominal pain with minimal radiation to left flank area Musculoskeletal: 5/5 B/L UE strength, 5/5 B/L LE strength. No gait disturbance Skin: (-) rashes , (-) erythema. (+) erythema on left lateral neck Psych: euthymic mood Results & Data Results & Data Vital Signs (Past 12 Hours) Vital Signs Temp Pulse Pulse Pulse Resp BP BP 08/27/24 23:57 36.5 C 61 16 103/71 08/27/24 22:54 36.5 C 61 16 103/71 08/27/24 22:50 36.5 C 61 16 103/71 08/27/24 22:10 80 16 104/74 08/27/24 21:30 87 16 105/85 08/27/24 20:26 87 17 97/78 L Pulse Ox O2 Del Method 08/27/24 23:57 99 Room Air 08/27/24 22:54 99 Room Air 08/27/24 22:50 99 Room Air 08/27/24 22:10 Room Air 08/27/24 21:30 96 Room Air 08/27/24 20:26 99 Room Air Laboratory Results Short CBC 08/27/24 08/28/24 Range/Units 17:50 09:26 WBC 11.42 H 8.08 (4.8-10.8) K/ul Hgb 13.5 11.9 L (12.0-16.0) g/dl Hct 39.6 36.8 L (37.0-47.0) % Plt Count 318 252 (130-400) K/uL BMP 08/27/24 08/28/24 17:50 09:26 Sodium 139 141 Potassium 3.8 3.5 Chloride 105 108 H Carbon Dioxide 24 28 BUN 17 10 Creatinine 0.61 0.71 Glucose 100 H 68 L Calcium 9.9 9.0 Liver Function 08/27/24 Range/Units 17:50 Total Bilirubin 0.3 (0.2-1.0) mg/dl AST 16 (13-39) U/L ALT 16 (7-52) U/L Alkaline Phosphatase 64 (34-104) U/L Albumin 4.0 (3.4-5.0) gm/dl Urine 08/27/24 Range/Units 22:37 Urine Color Yellow Urine Appearance Clear (Clear) Urine pH 8.5 H (4.5-7.5) Ur Specific [place] 1.045 H (1.000-1.030) Urine Protein Negative (Negative) Urine Glucose (UA) Negative (Negative) (2) Constipation Constipation type: unspecified constipation type Qualified Code(s): K59.00 - Constipation, unspecified
[2024-08-28] MEDS: diphenhydrAMINE Capsule 25 MG CAP PO ONE (09:23)
[2024-08-28] MEDS: prednisoLONE acetate 1% OP SUSP 5 ML BTL OPR SCH (09:40)
[2024-08-28] MEDS: CIPROFLOXACIN HCL 0.3% OP SOLN 2.5 ML BTL OPR SCH (09:41)
[2024-08-28] MEDS: minoxidiL 2.5 MG TAB PO SCH (09:43)
[2024-08-28] MEDS: MULTIVITAMIN TAB PO SCH (09:43)
[2024-08-28] MEDS: HEPARIN SOD 5,000 UNIT/0.5 ML VIAL SQ SCH (09:43)
--- NOTE | 2024-08-28 10:04 | Gastrointestinal Consultation ---
Date of Consultation August 28, 2024 Assessment & Plan (1) Sigmoid diverticulitis: (2) Constipation: (3) Liver lesion: Plan Patient admitted with acute diverticulitis with constipation after recent pain medications for a fall. she also had a liver lesion seen on imaging reportedly stable from 2018 consistent with Focal nodular hyperplasia. - continue with zosyn. - stop dicyclomine as this may worsen constipation. - start miralax 17gm daily for constipation. - can consider MRI to better characterize liver lesion once acute issues have resolved. Supervising Physician Co-Signing Physician Notes 54 year old female who presented to the ED on 08/27 with complaints of nausea, vomiting, abdominal pain, and constipation. She was in the ED on 08/22 after a fall and was given pain medications and sent home on oxycodone. she does not typically have constipation but developed it with the pain medications. Given her pain, she presented to the ED and had a CT concerning for acute sigmoid diverticulitis. Given her constipation along with the diverticulitis, she was admitted and started on zosyn. She feels that pain is slightly better since admission. She notes this is her 5th or 6th episode of diverticulitis. She is passing gas but has not had a bowel movement despite MiraLAX enema. I suggest magnesium citrate to see if we can get her bowels to move. In the meantime I told her that she needs to recover from this fifth or sixth bout of sigmoid diverticulitis. Given her age and the possibility of this recurring, I would suggest surgical consult and possible left hemicolectomy after the sigmoid diverticulitis resolves. She should follow-up with surgery in 6 to 8 weeks. We need to obtain the 2022 colonoscopy results. Given that it was done in the last 2 years and if the colonoscopy was normal, no further repeat is needed. History of Present Illness Reason for Consultation: acute diverticulitis and constipation Requesting Physician: Sundeep Lacey MD Attending Physician: Laine Rodgers MD History of Present Illness Patient is a 54 year old female who presented to the ED on 08/27 with complaints of nausea, vomiting, abdominal pain, and constipation. She was in the ED on 08/22 after a fall and was given pain medications and sent home on oxycodone. she does not typically have constipation but developed it with the pain medications. Given her pain, she presented to the ED and had a CT concerning for acute sigmoid diverticulitis. Given her constipation along with the diverticulitis, she was admitted and started on zosyn. She feels that pain is slightly better since admission. She notes this is her 5th or 6th episode of diverticulitis. Her CT was also concerning for a liver mass that was questionable for focal nodular hyperplasia. It says stable from last CT of 2018. Patient tells me she was unaware of this. she reports that her last colonoscopy was done in 2022 with [facility] that she reports was unremarkable but I do not have the records. CT 08/27/24 Suspected acute diverticulitis of the sigmoid colon. There is no sign of perforation or abscess formation 2. Small amount of free pelvic fluid 3. No definite change in a liver mass, not as conspicuous due to a different phase of contrast enhancement. As described previously, this is indeterminate in nature but may represent focal nodular hyperplasia 4. Small left renal cyst 5. Uterine leiomyoma Allergies Allergy/AdvReac Type Severity Reaction Status Date / Time tramadol Allergy Severe SHORT OF Verified 08/27/24 21:08 BREATH hydromorphone [From Dilaudid] Allergy Intermediate RASH/VOMITI Verified 08/27/24 21:08 NG latex Allergy Intermediate ITCHING Verified 08/27/24 21:08 morphine Allergy Intermediate Rash and Verified 08/27/24 21:08 nausea and vomiting Home Medications Medication Instructions Recorded Confirmed Type montelukast 10 mg tablet 10 mg PO HS 03/22/19 08/27/24 History (Singulair) cyclobenzaprine 10 mg tablet 10 mg PO HS PRN muscle spasm 11/12/22 08/27/24 History dicyclomine 20 mg tablet 20 mg PO QID PRN Abdominal Pain 11/12/22 08/27/24 History multivitamin 1 tab PO QAM 11/12/22 08/27/24 History valacyclovir 500 mg tablet 500 mg PO Q12H PRN as directed 11/12/22 08/27/24 History albuterol sulfate 90 mcg/actuation 2 puff inhalation Q6 PRN Wheezing 08/27/24 08/27/24 History aerosol inhaler alprazolam 1 mg tablet 1 mg PO BID PRN anxiety attacks 08/27/24 08/27/24 History ascorbic acid (vitamin C) 500 mg 500 mg PO QAM 08/27/24 08/27/24 History tablet (Vitamin C) ciprofloxacin HCl 0.3 % eye drops 1 drp OPR QID 08/27/24 08/27/24 History dextromethorphan IR 45 1 tab PO BID 08/27/24 08/27/24 History mg-bupropion ER 105 mg biphasic tablet (Auvelity) diazepam 10 mg tablet 5 - 10 mg PO BID 08/27/24 08/27/24 History fluticasone propionate 50 2 spray intranasal QAM PRN 08/27/24 08/27/24 History mcg/actuation nasal Congestion spray,suspension lisdexamfetamine 30 mg capsule 30 mg PO QAM 08/27/24 08/27/24 History lisinopril 10 mg tablet 10 mg PO QAM 08/27/24 08/27/24 History melatonin 10 mg tablet,extended 10 mg PO HS 08/27/24 08/27/24 History release minoxidil 2.5 mg tablet 2.5 mg PO QAM 08/27/24 08/27/24 History prednisolone acetate 1 % eye 1 drp OPR QID 08/27/24 08/27/24 History drops,suspension quetiapine 25 mg tablet 25 mg PO HS 08/27/24 08/27/24 History semaglutide (weight loss) 0.5 0.5 mg subcut WK 08/27/24 08/27/24 History mg/0.5 mL subcutaneous pen injector (Wegovy) temazepam 22.5 mg capsule 22.5 mg PO HS Sleep 08/27/24 08/27/24 History zinc gluconate 50 mg tablet 50 mg PO QAM 08/27/24 08/27/24 History Patient History Medical History Depression Left lumbar radiculopathy Social History Smoking Status: Never smoker Second Hand Exposure: No; Do You Dip or Chew Tobacco: No; Hx Alcohol Use: No Hx Substance Use: No Preferred Language: Lao Communication Ability: Effective 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 Operator Required: No Beliefs That Will Affect Care: None Current Living Situation: Spouse Current Living Situation Comment: lives in split level home with Feels Safe at Home: Yes Safety Concerns: Feels Safe At This Time Assistive Devices: Cane and Walker Review of Systems Review of Systems: All systems reviewed & are unremarkable except as noted in HPI & below Physical Exam Constitutional: WD/WN, vitals as above Respiratory: normal respiratory effort, lungs clear to auscultation Cardiovascular: Rate/Rhythm: regular rate and regular rhythm Gastrointestinal (Abdomen): LLQ tenderness, no guarding, soft, normal bowel sounds. Psychiatric: Orientation: alert and oriented x 3 Affect: euthymic affect Results & Data Vital Signs (Past 12 Hours) Vital Signs Temp Pulse Pulse Resp BP BP Pulse Ox 08/28/24 08:04 97.7 F 72 16 94/61 L 100 08/27/24 23:57 97.7 F 61 16 103/71 99 08/27/24 22:54 97.7 F 61 16 103/71 99 08/27/24 22:50 97.7 F 61 16 103/71 99 08/27/24 22:10 80 16 104/74 O2 Del Method 08/28/24 08:04 Room Air 08/27/24 23:57 Room Air 08/27/24 22:54 Room Air 08/27/24 22:50 Room Air 08/27/24 22:10 Room Air Coding Level of Care Code 47801 IN/OBS CONSULT LVL 4,60M Diagnoses Sigmoid diverticulitis K57.32 Constipation K59.00 Constipation type: unspecified constipation type Liver lesion K76.9 (2) Constipation Constipation type: unspecified constipation type Qualified Code(s): K59.00 - Constipation, unspecified
[2024-08-28 10:18] LABS: Basophils # (auto) 0.05 K/uL (0.00-0.20); Basophils % (auto) 0.6 %; Eosinophils # (auto) 0.17 K/uL (0.00-0.50); Eosinophils % (auto) 2.1 %; Hematocrit (blood only) 36.8 % (37.0-47.0); Hemoglobin 11.9 g/dl (12.0-16.0); Immature Granulocytes # (auto) 0.02 K/uL (0.01-0.20); Immature Granulocytes % (auto) 0.2 %; Lymphocytes # (auto) 2.44 K/uL (1.20-3.40); Lymphocytes % (auto) 30.2 %; Mean Corpuscular Hemoglobin 27.9 pg (25.0-34.0); Mean Corpuscular Hgb Conc 32.3 g/dL (32.0-36.0); Mean Corpuscular Volume 86.4 fL (80.0-100.0); Mean Platelet Volume 10.2 fL (9.4-12.4); Monocytes # (auto) 0.51 K/uL (0.11-0.59); Monocytes % (auto) 6.3 %; Neutrophils # (auto) 4.89 K/uL (1.40-6.50); Neutrophils % (auto) 60.6 %; Platelet Count 252 K/uL (130-400); RDW Coefficient of Variation 14.1 % (11.5-14.5); RDW Standard Deviation 44.8 fL (36.4-46.3); Red Blood Count 4.26 M/uL (4.20-5.40); White Blood Count 8.08 K/ul (4.8-10.8)
[2024-08-28 10:27] LABS: BUN Creatinine Ratio 14.1 (10-20); Creatinine Clr Calc Pharmacy 71.6 ml/min; Potassium 3.5 mmol/L (3.5-5.1)
[2024-08-28] MEDS: MAGNESIUM CITRATE 296 ML/BTL PO STA (17:11)
[2024-08-28] MEDS: POLYETHYLENE (MIRALAX) 17 GM PACK PO SCH (17:12)
[2024-08-28] MEDS: diphenhydrAMINE Capsule 25 MG CAP PO PRN (18:36)
--- NOTE | 2024-08-28 19:22 | Surgery Consultation ---
Date of Consultation August 28, 2024 Assessment & Plan (1) Sigmoid diverticulitis: Patient has been admitted on the hospitalist service. From surgery perspective we recommend the following: Patient is currently being treated with intravenous fluids. Antibiotics in form of Zosyn have been initiated should continue with plans to complete oral antibiotics once discharged She was initially on bowel rest but is currently tolerating clear liquid diet Patient notes that she has had about a 50% improvement of her presenting symptomatology/pain As the patient has had recurrent episodes of diverticulitis was felt that a surgical evaluation was warranted. I did discuss with the patient that it would be preferable to not operate on somebody with active diverticulitis as this would necessitate a temporary colostomy. I did tell the patient that once she is fully recovered from her diverticulitis she can be evaluated in an outpatient consultation with a surgeon to discuss possible surgery for her diverticulitis. Will continue to follow along while the patient is hospitalized with additional recommendations to follow based on her clinical course as it unfolds History of Present Illness Reason for Consultation: Diverticulitis Attending Physician: Laine Rodgers MD History of Present Illness This is a 54-year female who was admitted to the hospital on 08/27/2024 secondary to abdominal pain. Patient says that she has been experiencing abdominal pain in the left lower quadrant for approximately 4 days prior to admission. She did not seek medical attention until admission to the hospital. She has had associated nausea and vomiting but denies any fevers. She has had some issues with constipation. Patient reports that she has a longstanding history of diverticulitis and over the past 10 years she has had 8-9 bouts of this condition. She says that she has had a colonoscopy within the past 2 years and to the best of her knowledge daily remove polyps with no other significant pathology other than diverticular disease noted. (This study was performed within the [facility]). She has had abdominal surgeries in the form of a cholecystectomy. Concerning her diverticulitis she said that she was evaluated by a surgeon several years ago but she was told that she was too young to have surgery but could not provide any other details of why she was not felt to be a good surgical candidate. Since arrival to the hospital patient has had labs and imaging which I independent reviewed. Chest x-ray showed no active disease in the chest. A CT scan of the abdomen pelvis showed the patient had suspected acute diverticulitis of the distal sigmoid colon. There is no intraperitoneal free air noted. There is no evidence of perforation or abscess. Current labs include a CBC were white blood cell count and platelet count are normal. Hemoglobin and hematocrit are 11.9 and 36.8. Chemistry profile showed sodium and potassium as well as the BUN and creatinine were normal. (It is noteworthy to mention that the patient's white blood cell count was 11.4 at time of admission). At the time of my interview she was resting comfortably in bed and she was no distress. Allergies Allergy/AdvReac Type Severity Reaction Status Date / Time tramadol Allergy Severe SHORT OF Verified 08/27/24 21:08 BREATH hydromorphone [From Dilaudid] Allergy Intermediate RASH/VOMITI Verified 08/27/24 21:08 NG latex Allergy Intermediate ITCHING Verified 08/27/24 21:08 morphine Allergy Intermediate Rash and Verified 08/27/24 21:08 nausea and vomiting Home Medications Medication Instructions Recorded Confirmed Type montelukast 10 mg tablet 10 mg PO HS 03/22/19 08/27/24 History (Singulair) cyclobenzaprine 10 mg tablet 10 mg PO HS PRN muscle spasm 11/12/22 08/27/24 History dicyclomine 20 mg tablet 20 mg PO QID PRN Abdominal Pain 11/12/22 08/27/24 History multivitamin 1 tab PO QAM 11/12/22 08/27/24 History valacyclovir 500 mg tablet 500 mg PO Q12H PRN as directed 11/12/22 08/27/24 History albuterol sulfate 90 mcg/actuation 2 puff inhalation Q6 PRN Wheezing 08/27/24 08/27/24 History aerosol inhaler alprazolam 1 mg tablet 1 mg PO BID PRN anxiety attacks 08/27/24 08/27/24 History ascorbic acid (vitamin C) 500 mg 500 mg PO QAM 08/27/24 08/27/24 History tablet (Vitamin C) ciprofloxacin HCl 0.3 % eye drops 1 drp OPR QID 08/27/24 08/27/24 History dextromethorphan IR 45 1 tab PO BID 08/27/24 08/27/24 History mg-bupropion ER 105 mg biphasic tablet (Auvelity) diazepam 10 mg tablet 5 - 10 mg PO BID 08/27/24 08/27/24 History fluticasone propionate 50 2 spray intranasal QAM PRN 08/27/24 08/27/24 History mcg/actuation nasal Congestion spray,suspension lisdexamfetamine 30 mg capsule 30 mg PO QAM 08/27/24 08/27/24 History lisinopril 10 mg tablet 10 mg PO QAM 08/27/24 08/27/24 History melatonin 10 mg tablet,extended 10 mg PO HS 08/27/24 08/27/24 History release minoxidil 2.5 mg tablet 2.5 mg PO QAM 08/27/24 08/27/24 History prednisolone acetate 1 % eye 1 drp OPR QID 08/27/24 08/27/24 History drops,suspension quetiapine 25 mg tablet 25 mg PO HS 08/27/24 08/27/24 History semaglutide (weight loss) 0.5 0.5 mg subcut WK 08/27/24 08/27/24 History mg/0.5 mL subcutaneous pen injector (Wegovy) temazepam 22.5 mg capsule 22.5 mg PO HS Sleep 08/27/24 08/27/24 History zinc gluconate 50 mg tablet 50 mg PO QAM 08/27/24 08/27/24 History Patient History Medical History Depression Left lumbar radiculopathy Social History Smoking Status: Never smoker Second Hand Exposure: No; Do You Dip or Chew Tobacco: No; Hx Alcohol Use: No Hx Substance Use: No Preferred Language: Bulgarian Communication Ability: Effective Sign Board Erector Required: No Beliefs That Will Affect Care: None Current Living Situation: Spouse Current Living Situation Comment: lives in split level home with Feels Safe at Home: Yes Safety Concerns: Feels Safe At This Time Assistive Devices: Cane and Walker Review of Systems Review of Systems: All systems reviewed & are unremarkable except as noted in HPI & below Physical Exam Constitutional: WD/WN, vitals as above Eyes: no conjunctival abnormality ENMT: Ears: no hearing impairment and no external ear abnormality Mouth: no oropharynx abnormality Neck: trachea midline Respiratory: normal respiratory effort; no respiratory distress and no labored breathing Cardiovascular: Rate/Rhythm: regular rate and regular rhythm Gastrointestinal (Abdomen): Abdomen is soft, nonrigid, nondistended. There is no rebound tenderness or guarding the patient did have pain with palpation in the left lower quadrant and to a lesser degree the right lower quadrant Musculoskeletal: No gross orthopedic abnormalities Skin: no rashes Neurologic: moves all extremities Psychiatric: A+Ox3, euthymic affect Results & Data Vital Signs (Past 12 Hours) Vital Signs Temp Pulse Resp BP Pulse Ox O2 Del Method 08/28/24 15:24 36.8 C 65 18 101/64 98 Room Air 08/28/24 08:04 36.5 C 72 16 94/61 L 100 Room Air PG Care Time/CCT Total # of Minutes Spent Total Time Spent with Patient: Total time spent is greater than 50% in coordination of care (as documented) at patient's floor/unit and/or counseling patient: Coding Level of Care Code 83982 IN/OBS CONSULT LVL 5,80M Diagnoses Sigmoid diverticulitis K57.32
[2024-08-28] MEDS ORDERED: TEMAZEPAM 7.5 MG CAPSULE PO SCH (21:00)
[2024-08-28] MEDS ORDERED: QUEtiapine FUMARATE 25 MG TABLET PO SCH (21:00)
[2024-08-28] MEDS ORDERED: MELATONIN 3 MG TAB PO SCH (21:00)
[2024-08-28] MEDS: MONTELUKAST SODIUM 10 MG TABLET PO SCH (22:07)
[2024-08-29] MEDS ORDERED: ALPRAZolam 0.5 MG TABLET PO PRN (00:57)
--- NOTE | 2024-08-29 07:16 | Hospitalist Progress Note ---
Date of Service August 29, 2024 Assessment & Plan (1) Sigmoid diverticulitis: (2) Constipation: Plan Patient presented to the hospital with abdominal pain, nausea/vomiting and constipation for several days. Came to the ED on 08/22 for mechanical fall; was prescribed oxycodone which likely related to the constipation. Workup in the ED showed findings significant for acute sigmoid colitis. Acute sigmoid diverticulitis Constipation presents with abdominal pain, N/V and constipation for several days Leukocytosis 11.42; resolved 9.37 CTAP shows suspected acute diverticulitis; no signs of perforation/abscess. Tolerating advancing diet continue IV Zosyn; transition to PO at DC avoid laxatives given finding of sigmoid diverticulitis for the time being GI consult for severe constipation; LBM 08/22. Mg+ Citrate ordered. 08/28 she refused taking the Mg+Citrate due to concerns of sharing a bathroom with a roommate. Willing to take Mg+ Citrate today. Discussed with GI, ok for discharge once have BM and if pain improved - likely tomorrow. General sx consult given recurrent diverticulitis and eval for possible L hemicolectomy once acute infection resolves; appreciate reccs; they will follow as OPT Tylenol and Ketorolac for pain control Drug induced Pruritis: Improving Left lateral neck secondary to opioids; she reports being sensitive to opioids She received a morphine injection for her back pain as well and reports itching. No s/s of stridor, angioedema - no signs of airway compromise Benadryl PRN; hydrocortisone cream ordered Follows with Derm as opt Chronic conditions: Mood disorder; continue home meds Continue eyedrops for corneal abrasion I spent a total of 56 minutes coordinating, documenting, and providing care for this patient excluding time spent inthe performance of separately billed services or time spent by another provider/QHP. Admission and Anticipated Discharge Date Admission Date: August 27, 2024 Subjective Patient seen and examined. Still with some left lower quadrant pain, but improved since admission. Afebrile. Tolerating advancing her diet. She is up and ambulating around the room. Yesterday she refused taking the Mg+Citrate due to concerns of sharing a bathroom with a roommate. Willing to take Mg+ Citrate today. Denies chest pain, SOB, palpitations, N/V with eating. Review of Systems Review of Systems: Neuro: (-) Falls, trauma, slurred speech HEENT: (-) TRUONG, dizziness, dysphagia, visual or auditory changes CV: (-) CP, palpitations, swelling Resp: (-) SOB GI: (-) appetite changes, N/V/D, bowel changes. (+) LLQ abdominal pain 2/10 : (-) urinary changes Skin: (-) rashes (+) itching and redness on right lateral neck improved Psych: (-) anxiety, depression Physical Exam Physical Exam: Neuro: AAOx4, PERRLA, no aphagia, memory changes, CNII-XII grossly intact HEENT: head normocephalic, moist mucus membranes CV: S1/S2, (-) M/G/R, (-) edema, cap refill < 3 seconds Resp: Lungs CTA in all siegel. On RA GI: Abdomen S/NT/ND,hypoactive bowel sounds x4, LLQ abdominal pain with minimal radiation to left flank area Musculoskeletal: 5/5 B/L UE strength, 5/5 B/L LE strength. No gait disturbance Skin: (-) rashes , (-) erythema. (+) erythema on left lateral neck improving Psych: euthymic mood Results & Data Results & Data Vital Signs (Past 12 Hours) Vital Signs Temp Pulse Resp BP Pulse Ox O2 Del Method 08/28/24 21:05 36.4 C L 56 L 18 106/69 100 Room Air Laboratory Results Short CBC 08/29/24 Range/Units 08:13 WBC 9.37 (4.8-10.8) K/ul Hgb 12.4 (12.0-16.0) g/dl Hct 37.8 (37.0-47.0) % Plt Count 304 (130-400) K/uL [facility] 08/29/24 08:13 Sodium 142 Potassium 3.8 Chloride 108 H Carbon Dioxide 28 BUN 8 Creatinine 0.65 Glucose 97 Calcium 9.4 (2) Constipation Constipation type: unspecified constipation type Qualified Code(s): K59.00 - Constipation, unspecified
[2024-08-29] MEDS: DEXTROMETHORPHAN HBR/BUPROPION 45-105MG TAB PO SCH (07:24)
[2024-08-29 09:17] LABS: Hematocrit (blood only) 37.8 % (37.0-47.0); Hemoglobin 12.4 g/dl (12.0-16.0); Mean Corpuscular Hemoglobin 28.4 pg (25.0-34.0); Mean Corpuscular Hgb Conc 32.8 g/dL (32.0-36.0); Mean Corpuscular Volume 86.7 fL (80.0-100.0); Mean Platelet Volume 10.2 fL (9.4-12.4); Platelet Count 304 K/uL (130-400); RDW Coefficient of Variation 13.7 % (11.5-14.5); Red Blood Count 4.36 M/uL (4.20-5.40); White Blood Count 9.37 K/ul (4.8-10.8)
[2024-08-29 09:40] LABS: BUN Creatinine Ratio 12.3 (10-20); Calcium 9.4 mg/dl (8.6-10.3); Creatinine Clr Calc Pharmacy 78.3 ml/min; Potassium 3.8 mmol/L (3.5-5.1)
--- NOTE | 2024-08-29 09:59 | Gastroenterology Progress Note ---
Date of Service August 29, 2024 Assessment & Plan (1) Sigmoid diverticulitis: Plan: She is slowly improving. Would continue antibiotics as you are doing. Dr. Martinez from general surgery in to see the patient as well. Admission and Anticipated Discharge Date Admission Date: August 27, 2024 Subjective She tells me she is "50% better" with regards to her pain but also emphasizes that she has a very high pain tolerance. No BM's yet Physical Exam Physical Exam: She looks well Constitutional: WD/WN, vitals as above Results & Data Vital Signs (Past 12 Hours) Vital Signs Temp Pulse Resp BP Pulse Ox O2 Del Method 08/29/24 07:50 36.8 C 80 16 143/89 H 99 Room Air
--- NOTE | 2024-08-29 10:19 | Surgery Progress Note ---
Date of Service August 29, 2024 Assessment & Plan (1) Sigmoid diverticulitis: Plan: She is improving since admission and has no signs of perforation on exam or on CT scan Can advance her diet as tolerated She can follow-up with [facility] surgery to discuss elective sigmoidectomy Surgery will sign off at this time, please call with any questions or concerns Admission and Anticipated Discharge Date Admission Date: August 27, 2024 Subjective Patient seen and examined. Still with some left lower quadrant pain, but improved since admission. Afebrile. Tolerating clear liquids. Review of Systems Constitutional: no fever and no chills Respiratory: no cough and no dyspnea Cardiovascular: no chest pain and no dyspnea on exertion Gastrointestinal: + abdominal pain and + constipation; no nausea and no vomiting Integumentary: no acne and no sores Hematologic / Lymphatic: no easy bleeding and no easy bruising Physical Exam Constitutional: WD/WN, vitals as above Respiratory: normal respiratory effort, lungs clear to auscultation Cardiovascular: RRR, no murmur, no edema Gastrointestinal (Abdomen): Inspection/Auscultation: abdomen normal to inspection; abdomen not distended Percussion/Palpation: + abdomen tender (Mild left lower quadrant) and abdomen soft; no guarding Skin: no rashes, warm and dry Psychiatric: A+Ox3, euthymic affect Results & Data Vital Signs (Past 12 Hours) Vital Signs Temp Pulse Resp BP Pulse Ox O2 Del Method 08/29/24 07:50 36.8 C 80 16 143/89 H 99 Room Air PG Care Time/CCT Total # of Minutes Spent Total Time Spent with Patient: Total time spent is greater than 50% in coordination of care (as documented) at patient's floor/unit and/or counseling patient: Coding Level of Care Code 20818 SUB INP/OBS CARE 08/01MIN Diagnoses Sigmoid diverticulitis K57.32
[2024-08-29] MEDS: HYDROCORTISONE 1% OINT 30 GM TUBE EXT SCH (15:04)
[2024-08-29] MEDS ORDERED: diphenhydrAMINE Capsule 25 MG CAP PO PRN (16:48)
[2024-08-29] MEDS ORDERED: diphenhydrAMINE HCl 12.5 MG/5 ML UDC PO PRN (17:34)
[2024-08-30 06:19] LABS: Hematocrit (blood only) 35.8 % (37.0-47.0); Hemoglobin 11.8 g/dl (12.0-16.0); Mean Corpuscular Hemoglobin 28.2 pg (25.0-34.0); Mean Corpuscular Volume 85.4 fL (80.0-100.0); Mean Platelet Volume 9.8 fL (9.4-12.4); Platelet Count 286 K/uL (130-400); RDW Coefficient of Variation 13.6 % (11.5-14.5); RDW Standard Deviation 42.5 fL (36.4-46.3); Red Blood Count 4.19 M/uL (4.20-5.40); White Blood Count 8.17 K/ul (4.8-10.8)
[2024-08-30 06:30] LABS: BUN Creatinine Ratio 14.3 (10-20); Calcium 9.3 mg/dl (8.6-10.3); Creatinine Clr Calc Pharmacy 60.6 ml/min
--- NOTE | 2024-08-30 07:14 | Hospitalist Progress Note ---
Date of Service August 30, 2024 Assessment & Plan (1) Sigmoid diverticulitis: (2) Constipation: Plan Patient presented to the hospital with abdominal pain, nausea/vomiting and constipation for several days. Came to the ED on 08/22 for mechanical fall; was prescribed oxycodone which likely related to the constipation. Workup in the ED showed findings significant for acute sigmoid colitis. Acute sigmoid diverticulitis Constipation presents with abdominal pain, N/V and constipation for several days Leukocytosis 11.42; resolved 9.37 CTAP shows suspected acute diverticulitis; no signs of perforation/abscess. Tolerating advancing diet continue IV Zosyn; transition to PO at DC avoid laxatives given finding of sigmoid diverticulitis for the time being GI consult for severe constipation; LBM 08/22. Mg+ Citrate ordered. 08/28 she refused taking the Mg+Citrate due to concerns of sharing a bathroom with a roommate. Willing to take Mg+ Citrate today. Discussed with GI, ok for discharge once have BM and if pain improved - likely tomorrow. General sx consult given recurrent diverticulitis and eval for possible L hemicolectomy once acute infection resolves; appreciate reccs; they will follow as OPT Tylenol and Ketorolac for pain control Drug induced Pruritis: Improving Left lateral neck secondary to opioids; she reports being sensitive to opioids She received a morphine injection for her back pain as well and reports itching. No s/s of stridor, angioedema - no signs of airway compromise Benadryl PRN; hydrocortisone cream ordered Follows with Derm as opt Chronic conditions: Mood disorder; continue home meds Continue eyedrops for corneal abrasion I spent a total of 56 minutes coordinating, documenting, and providing care for this patient excluding time spent inthe performance of separately billed services or time spent by another provider/QHP. Admission and Anticipated Discharge Date Admission Date: August 27, 2024 Review of Systems Review of Systems: Neuro: (-) Falls, trauma, slurred speech HEENT: (-) TRUONG, dizziness, dysphagia, visual or auditory changes CV: (-) CP, palpitations, swelling Resp: (-) SOB GI: (-) appetite changes, N/V/D, bowel changes. (+) LLQ abdominal pain 2/10 : (-) urinary changes Skin: (-) rashes (+) itching and redness on right lateral neck improved Psych: (-) anxiety, depression Physical Exam Physical Exam: Neuro: AAOx4, PERRLA, no aphagia, memory changes, CNII-XII grossly intact HEENT: head normocephalic, moist mucus membranes CV: S1/S2, (-) M/G/R, (-) edema, cap refill < 3 seconds Resp: Lungs CTA in all siegel. On RA GI: Abdomen S/NT/ND,hypoactive bowel sounds x4, LLQ abdominal pain with minimal radiation to left flank area Musculoskeletal: 5/5 B/L UE strength, 5/5 B/L LE strength. No gait disturbance Skin: (-) rashes , (-) erythema. (+) erythema on left lateral neck improving Psych: euthymic mood Results & Data Results & Data Vital Signs (Past 12 Hours) Vital Signs Temp Pulse Resp BP Pulse Ox O2 Del Method 08/29/24 23:00 36.5 C 75 18 100/64 97 Room Air 08/29/24 20:53 36.8 C 69 16 104/72 98 Room Air (2) Constipation Constipation type: unspecified constipation type Qualified Code(s): K59.00 - Constipation, unspecified
[2024-08-30 07:59] VITALS: BP 112/77; RESP 16; TEMP 98.1; O2SAT 98
[2024-08-30] MEDS: KETOROLAC TROMETHAMINE 15 MG/ML VIAL IV PRN (08:21)
[2024-08-30] MEDS: MAGNESIUM CITRATE 296 ML/BTL PO SCH (08:51)
--- NOTE | 2024-08-30 09:38 | Gastroenterology Progress Note ---
Date of Service August 30, 2024 Assessment & Plan (1) Sigmoid diverticulitis: Plan: Hopefully she is heading to having a bowel movement and this will alleviate her symptoms. Admission and Anticipated Discharge Date Admission Date: August 27, 2024 Subjective having cramping but just took magnesium citrate. prior to this her pain was a "four or five". Surgery appropriately wants to see her as an outpatient Physical Exam Physical Exam: She looks well Results & Data Vital Signs (Past 12 Hours) Vital Signs Temp Pulse Resp BP Pulse Ox O2 Del Method 08/30/24 07:58 36.7 C 76 16 112/77 98 Room Air 08/29/24 23:00 36.5 C 75 18 100/64 97 Room Air
[2024-08-30] MEDS: SOD PHOSPHATE/SOD BIPHOSPHATE ENEMA 132 ML BTL PR STA (11:29)
[2024-08-30 14:42] VITALS: PULSE 87
--- NOTE | 2024-08-30 14:42 | Discharge Summary ---
Date of Service August 30, 2024 Admission HPI Per Admitting Provider History obtained from interview with the patient and chart review Past medical history of prediabetes, hypertension, mood disorder, ADHD. Presented to the ED on August 22, 2024 with mechanical fall. Underwent w orkup/imaging which did not show any acute finding. She was discharged on oxycodone and prednisone. Patient again came to the ED on August 23, 2024; for right eye pain. Was recommended Cipro and steroids drops on right eye every 4 hours for 7 days. She presented to the hospital with abdominal pain, nausea and constipation for last few days. Abdominal pain is on left lower quadrant, radiating to the back. It is associated with nausea/vomiting; containing food particles. She reports chills; no complaint of fever. She also reports of constipation for several days; has tried MiraLAX, enema without any success. She is passing gas. Lab work in the ED showed leukocytosis. CT abdomen and pelvis shows sigmoid diverticulitis. Last colonoscopy in August 2022; found to have internal hemorrhoids, moderate diverticulosis in sigmoid colon, and 4 mm rectal polyp Social history; former smoker, no alcohol or drug use Principal Diagnosis Acute diverticulitis and Constipation Discharge Exam Neuro: AAOx4, PERRLA, no aphagia, memory changes, CNII-XII grossly intact HEENT: head normocephalic, moist mucus membranes CV: S1/S2, (-) M/G/R, (-) edema, cap refill < 3 seconds Resp: Lungs CTA in all siegel. On RA GI: Abdomen S/NT/ND, Ax4 bowel sounds, (-) CVA tenderness LLQ tenderness with palpation Musculoskeletal: 5/5 B/L UE strength, 5/5 B/L LE strength. No gait disturbance Skin: (-) rashes , (-) erythema. Psych: euthymic mood Discharge Data Allergies Allergy/AdvReac Type Severity Reaction Status Date / Time tramadol Allergy Severe SHORT OF Verified 08/27/24 21:08 BREATH hydromorphone [From Dilaudid] Allergy Intermediate RASH/VOMITI Verified 08/27/24 21:08 NG latex Allergy Intermediate ITCHING Verified 08/27/24 21:08 morphine Allergy Intermediate Rash and Verified 08/27/24 21:08 nausea and vomiting Consultations 08/27/24 20:16 ED Decision to Admit Stat 08/28/24 08:00 Consult Gastroenterology Routine 08/28/24 16:53 Consult General Surgery Routine Ordered Studies 1. Abdomen/Pelvis CT: Impression: 1. Suspected acute diverticulitis of the sigmoid colon. There is no sign of perforation or abscess formation 2. Small amount of free pelvic fluid 3. No definite change in a liver mass, not as conspicuous due to a different phase of contrast enhancement. As described previously, this is indeterminate in nature but may represent focal nodular hyperplasia 4. Small left renal cyst 5. Uterine leiomyoma 2. CXR: 08/27: Impression: No acute cardiopulmonary disease Hospital Course (1) Sigmoid diverticulitis: (2) Constipation: Plan Ms. Reddy presented to the [facility] on 08/27/24 with abdominal pain and constipation, although she reports flatulance. She indicated that she had been experiencing abdominal pain in her left lower quadrant approximately four days prior to coming to the hospital. She stated that her LBM was on SaturdayAugust 22. She indicated that she also having some nausea. She reportedly has a longstanding history of diverticulitis and over the past 10 years she has had 8- 9 bouts of this condition. She reportedly had a colonoscopy within the past 2 years with polyp removal. While she was here a CT scan of her abdomen and pelvis was performed with suspected acute diverticulitis of the distal sigmoid colon. There was no evidence of perforation or abscess. She did not have leukocytosis and her other blood work was unremarkable. Current labs include a CBC were white blood cell count and platelet count are normal. Hemoglobin and hematocrit are 11.9 and 36.8. It is important as outlined above that she have further investigation into the liver lesion. No transaminitis on admission. She was evaluated by surgical services and gastroenterology while she were here. Gastroenterology gave some suggestions of how to continue to move her bowels including Magnesium Citrate and enemas which she has received. General surgery stated that given how her symptoms are recurrent with this occurring 5-6 times, it would be recommended for consultation as an outpatient inflammation has resolved for a possible left hemicolectomy. On the day of discharge, she had two small bowel movements and continue to have some cramping after her second enema. It is expected that her stool may be hard as it comes out given the amount of constipation. MEDICATION CHANGES: You will be sent home on the following new medications: 1. Cefdinir 300 mg by mouth twice daily x 12 days with your first dose being tonight and your last dose being in the morning on SaturdaySeptember 11. 2. Flagyl 500 mg by mouth three times daily x 12 days with your first dose bein g this evening and your last dose being in the morning on SaturdaySeptember 11. 3. Take a probiotic daily while on antibiotics and for one week after completion of antibiotics with your last dose on August 16. 4. Take Miralax 17g by mouth daily until you are having consistent bowel movements. Please discuss continuation or discontinuation with your PCP and GI at follow up. 5. Take Senna 17.2 mg by mouth daily until you are having consistent bowel movements. Please discuss continuation or discontinuation with your PCP and GI at follow up. 6. Take Colace 100 mg by mouth daily until you are having consistent bowel movements. Please discuss continuation or discontinuation with your PCP and GI at follow up. Total Time Total Time Spent Total Time Spent (In Minutes): I spent a total of 53 minutes coordinating, documenting, and providing care for this patient excluding time spent inthe performance of separately billed services or time spent by another provider/QHP. Discharge Plan Discharge Items Patient Disposition: Home - Self-Care Reason For Visit: ACUTE DIVERTICULITIS Discharge Diagnosis: Acute Diverticulitis Condition on Discharge: Good Activity: Resume your previous activity Non-emergency contact: Primary Care Provider and [place] Call non-emergency contact if: you have any medication questions, your pain is worsening and you have a fever Follow-up/Referrals: Andressa eLes DO [Primary Care Provider] - Diet: Regular Diet Texture: Easy to Chew Addgeo Attending Provider Instructions: Ms. Reddy - You presented to the [facility] on 08/27/24 with abdominal pain and constipation, although you are passing gas. You indicated that you had been experiencing abdominal pain in your left lower quadrant approximately four days prior to your coming to the hospital. You stated that your last bowel movement was on SaturdayAugust 22. You indicated that you were also having some nausea. You reported that you have a longstanding history of diverticulitis and over the past 10 years she has had 8-9 bouts of this condition. You reportedly had a colonoscopy within the past 2 years with polyp removal. While you were here a CT scan was performed of your abdomen and pelvis with suspected acute diverticulitis of your distal sigmoid colon. There was no evidence of perforation or abscess. You did not have an elevation of white blood cells. All of your other blood work was normal. Current labs include a CBC were white blood cell count and platelet count are normal. Hemoglobin and hematocrit are 11.9 and 36.8. You were evaluated by surgical services and gastroenterology while you were here. Gastroenterology gave some suggestions of how to continue to move your bowels including Magnesium Citrate and enemas which you have received. General surgery stated that given how your symptoms are recurrent with this occurring 5-6 times, it would be recommended for consultation as an outpatient when your symptoms resolved for a possible left hemicolectomy after your current symptoms resolved. On the day of discharge, you had two small bowel movements and continue to have some cramping after your second enema. It is expected that your stool may be hard as it comes out given the amount of your constipation. You were discharged in stable condition. MEDICATION CHANGES: You will be sent home on the following new medications: 1. Cefdinir 300 mg by mouth twice daily x 12 days with your first dose being tonight and your last dose being in the morning on SaturdaySeptember 11. 2. Flagyl 500 mg by mouth three times daily x 12 days with your first dose being this evening and your last dose being in the morning on SaturdaySeptember 11. 3. Take a probiotic daily while on antibiotics and for one week after completion of antibiotics with your last dose on August 16. 4. Take Miralax 17g by mouth daily until you are having consistent bowel movements. Please discuss continuation or discontinuation with your PCP and GI at follow up. 5. Take Senna 17.2 mg by mouth daily until you are having consistent bowel movements. Please discuss continuation or discontinuation with your PCP and GI at follow up. 6. Take Colace 100 mg by mouth daily until you are having consistent bowel movements. Please discuss continuation or discontinuation with your PCP and GI at follow up. SUMMARY OF TEST RESULTS: 1. Abdomen/Pelvis CT: Impression: 1. Suspected acute diverticulitis of the sigmoid colon. There is no sign of perforation or abscess formation 2. Small amount of free pelvic fluid 3. No definite change in a liver mass, not as conspicuous due to a different phase of contrast enhancement. As described previously, this is indeterminate in nature but may represent focal nodular hyperplasia 4. Small left renal cyst 5. Uterine leiomyoma 2. CXR: 08/27: Impression: No acute cardiopulmonary disease RECOMMENDATIONS FOR FOLLOW-UP: 1. You will be contacted on Saturday08/31/24 with a follow up appointment with your PCP. 2. Please reach out to [facility] general surgery for arranging a follow up to discuss possible surgical intervention 3. Gastroenterology will call you on Saturday08/31/24 to arrange a follow up appointment. OTHER INSTRUCTIONS: Seek medical attention if you have: * temperature above 101 * chest pain or trouble breathing * abdominal pain, nausea, vomiting * diarrhea, dark stools or bloody stools * any unanswered questions or concerns Call 911 if symptoms are severe. Please take good care of yourself. It has been a pleasure taking care of you. Please take care of yourself. If you have any questions regarding your recent hospitalization please contact [facility] and request [facility] @ [phone]. Pending Studies at Discharge: No Stand-Alone Forms: My [facility], Work/School Release, Smoking Cessation Medications and DC Order Prescriptions: New polyethylene glycol 3350 [Miralax] 17 gram Powder In Packet 17 g PO DAILY Qty: 30 0RF cefdinir 300 mg capsule 300 mg PO BID 12 Days Qty: 24 0RF docusate sodium [Colace] 100 mg capsule 100 mg PO DAILY Qty: 14 0RF Senokot Extra Strength 17.2 mg tablet 17.2 mg PO DAILY Qty: 20 0RF Saccharomyces boulardii [Florastor] 250 mg capsule 250 mg PO DAILY Qty: 14 0RF metronidazole 500 mg tablet 500 mg PO TID 12 Days Qty: 36 0RF Continued montelukast [Singulair] 10 mg tablet 10 mg PO HS multivitamin Tablet 1 tab PO QAM cyclobenzaprine 10 mg tablet 10 mg PO HS PRN (Reason: muscle spasm) valacyclovir 500 mg Tablet 500 mg PO Q12H PRN (Reason: as directed) prednisolone acetate 1 % drops,suspension 1 drp OPR QID temazepam 22.5 mg capsule 22.5 mg PO HS minoxidil 2.5 mg tablet 2.5 mg PO QAM Wegovy 0.5 mg/0.5 mL pen injector 0.5 mg SUBCUT WK melatonin 10 mg Tablet Extended Release 10 mg PO HS quetiapine 25 mg tablet 25 mg PO HS ciprofloxacin HCl 0.3 % Drops 1 drp OPR QID alprazolam 1 mg tablet 1 mg PO BID PRN (Reason: anxiety attacks) diazepam 10 mg tablet 5 - 10 mg PO BID ascorbic acid (vitamin C) [Vitamin C] 500 mg Tablet 500 mg PO QAM lisinopril 10 mg tablet 10 mg PO QAM zinc gluconate 50 mg Tablet 50 mg PO QAM albuterol sulfate 90 mcg/actuation HFA aerosol inhaler 2 puff INHALATION Q6 PRN (Reason: Wheezing) fluticasone propionate 50 mcg/actuation spray,suspension 2 spray INTRANASAL QAM PRN (Reason: Congestion) Auvelity 45-105 mg tablet,IR,delayed rel,biphasic 1 tab PO BID Rx Instructions: take 6-8 hours apart Discontinued dicyclomine 20 mg Tablet 20 mg PO QID PRN (Reason: Abdominal Pain) lisdexamfetamine 30 mg capsule 30 mg PO QAM Discharge Orders: Discharge Order (Routine); Ordered 08/30/24 Ordered By: Sapphire Morales/Other Patient Handouts: DVT Post Op Prevention Admission Data Admit Date/Time: 08/27/24 20:44 Attending Provider: Laine Rodgers Admit Provider: Sundeep Lacey Primary Care Provider: Andressa Lees Other Providers: Aly Workman; Noah Fuchs; Niraj Martinez Other Interventions: Discharge Summary Assessment (RN) Last Done: 08/30/24 14:39 Supervising Physician Co-Signing Physician Notes Pt was seen and examined by myself, Laine Rodgers MD on the day of service. Care was coordinated with STEPHIE Rausch. 54yoF with diverticulitis. Concern for severe constipation as well. On exam diffusely tender in the abdomen though more so in LLQ. Bowel sounds present. On the day of discharge multiple enemas and miralax use, had multiple small bowel movements before discharge. Surgery consulted, appreciate recs GI consulted, appreciate recs Treated with IV abx and discharged with po cefdinir and flagyl to complete 14 days of abx rx. Close followup with GI and surgery after discharge prn pain meds, advance diet as tolerated. Daily bowel regimen after discharge Otherwise as above. I spent a total [id number] coordinating, documenting, and providing care for this patient excluding time spent in the performance of separately billed services
== END 2024-08-30 15:03 | disposition home or self-care (01) | DRG 392 ==
LOC: ED 17:08 → 3W 20:44

== ENCOUNTER 2025-01-23 21:16 | Inpatient (IN) ==
--- NOTE | 2025-01-23 21:42 | Emergency Department Note ---
Impression & Plan Vasculitis, Rash ED Provider Note NAME: MYLES FALK AGE: 54 SEX: F : 1970 ARRIVES VIA: Walk-In INFORMANT: Patient ED PROVIDER(S): Hood Cody DO CHIEF COMPLAINT: Rash HPI: Patient is a 54-year-old female with a past medical history of liver lesion, constipation, diverticulitis who presents to the ER for a rash. She notes it started about a week ago. It has been getting gradually worse tracking up the legs. She denies any headache or change in vision. No chest pain or shortness of breath. No cough or congestion. No belly pain. No nausea, vomiting, or diarrhea. No dysuria, urgency, or frequency. ADDITIONAL HISTORY OBTAINED: Per HPI Chronic Medical/Social Conditions Affecting Care: Per HPI PAST MEDICAL HISTORY:See Below PAST SURGICAL HISTORY:See Below FAMILY HISTORY:See Below SOCIAL HISTORY:See Below HOME MEDICATIONS:See Below ALLERGIES:See Below VITALS:See Below PHYSICAL EXAMINATION: GENERAL: Sitting up in bed, alert, well appearing, well nourished, no distress, non-toxic EYE EXAM: normal conjunctiva. OROPHARYNX: no exudate, no erythema, lips, buccal mucosa, and tongue normal and mucous membranes are moist NECK: supple, no nuchal rigidity, no adenopathy, non-tender LUNGS: Clear to auscultation. Normal chest wall mechanics HEART: no murmurs, S1 normal and S2 normal ABDOMEN: abdomen soft, non-tender, normo-active bowel sounds, no masses, no rebound or guarding. BACK: Back is symmetrical on inspection and there is no deformity, no midline tenderness, no CVA tenderness. SKIN: Petechiae present on the sole of the left foot, bilateral lower extremities, thighs, and abdomen. UPPER EXTREMITIES: upper extremities are grossly normal. LOWER EXTREMITIES: No pitting edema. NEURO EXAM: Normal sensorium, cranial nerves II-XII grossly intact, normal speech, no gross weakness of arms, no gross weakness of legs. MEDICAL DECISION MAKING: Patient is a 54-year-old female who presents ER for the above-stated complaint. IV was established and blood work was obtained. Labs showed no significant leukocytosis or anemia. BMP along LFTs bilirubin and lipase is unremarkable. UA is clean. On exam she has a petechial rash which is nonblanching. Negative Nikolsky. Does involve the feet arms legs and belly. Unclear of the origin of this. Has been progressively getting worse. With this I discussed case with the hospitalist for further evaluation management treatment. Patient denies all other complaints at this time. Consults/Care Managements Discussions: Per MDM Triage Nursing notes reviewed. Limited review of prior medical records performed Vital Signs: reviewed and remarkable for htn Differential diagnosis: Contact dermatitis, viral exanthem, urticaria, allergic reaction, Alegria- Ilya syndrome, toxic epidermal necrolysis, erythema multiforme, cellulitis, scabies, HSV, varicella, zoster, eczema, staph scalded skin syndrome, fungal infection, as well as other pathologies. ER treatment provided: See below Diagnostics interpreted by me include EKG and cardiac monitoring as listed below: -Cardiac Monitoring: An order was placed for continuous cardiac monitoring. The monitor shows a rate of 88 with sinus rhythm. -ECG: none -Laboratory studies:Interpreted by me as stated above in MDM and shown below. Imaging studies: Xrays: As interpreted by me:none CTs show: none Procedures:none Critical Care: None Past Med/Surg History Problem List (Updated 01/24/25 @ 00:25 by Hood Cody DO) Rash (Acute) Vasculitis (Acute) Acid reflux Liver lesion Constipation (Acute) Sigmoid diverticulitis (Acute) Lumbar disc herniation with radiculopathy Insomnia Fall (Acute) Contusion of multiple sites (Acute) Contusion of multiple sites (Acute) Medical History Depression Left lumbar radiculopathy Social History Smoking Status: Former smoker Second Hand Exposure: No; Do You Dip or Chew Tobacco: No; Hx Alcohol Use: No Hx Substance Use: No Preferred Language: Icelandic Communication Ability: Effective Remedy Developer Required: No Beliefs That Will Affect Care: None Current Living Situation: Spouse Current Living Situation Comment: lives in split level home with Feels Safe at Home: Yes Assistive Devices: Cane and Walker Allergies Allergies Allergy/AdvReac Type Severity Reaction Status Date / Time tramadol Allergy Severe SHORT OF Verified 01/13/25 10:05 BREATH hydromorphone [From Dilaudid] Allergy Intermediate RASH/VOMITI Verified 01/13/25 10:05 NG latex Allergy Intermediate ITCHING Verified 01/13/25 10:05 morphine Allergy Intermediate Rash and Verified 01/13/25 10:05 nausea and vomiting Home Meds Home Medications Medication Instructions Recorded Confirmed montelukast 10 mg tablet 10 mg PO HS 03/22/19 01/23/25 (Singulair) cyclobenzaprine 10 mg tablet 10 mg PO HS PRN muscle spasm 11/12/22 01/23/25 multivitamin 1 tab PO QAM 11/12/22 01/23/25 valacyclovir 500 mg tablet 500 mg PO Q12H PRN as directed 11/12/22 01/23/25 albuterol sulfate 90 mcg/actuation 2 puff inhalation Q6 PRN Wheezing 08/27/24 01/23/25 aerosol inhaler alprazolam 1 mg tablet 1 mg PO BID PRN anxiety attacks 08/27/24 01/23/25 ascorbic acid (vitamin C) 500 mg 500 mg PO QAM 08/27/24 01/23/25 tablet (Vitamin C) dextromethorphan IR 45 1 tab PO BID 08/27/24 01/23/25 mg-bupropion ER 105 mg biphasic tablet (Auvelity) fluticasone propionate 50 2 spray intranasal QAM PRN 08/27/24 01/23/25 mcg/actuation nasal Congestion spray,suspension minoxidil 2.5 mg tablet 2.5 mg PO QAM 08/27/24 01/23/25 semaglutide (weight loss) 0.5 0.5 mg subcut WK 08/27/24 01/23/25 mg/0.5 mL subcutaneous pen injector (Aaron) temazepam 22.5 mg capsule 22.5 mg PO HS Sleep 08/27/24 01/23/25 zinc gluconate 50 mg tablet 50 mg PO QAM 08/27/24 01/23/25 clobetasol 0.05 % scalp solution 1 applic topical DAILY 01/23/25 01/23/25 dextromethorphan IR 45 1 tab PO BID 01/23/25 01/23/25 mg-bupropion ER 105 mg biphasic tablet (Auvelity) dupilumab 300 mg/2 mL subcutaneous 300 mg subcut .EVERY 2 WEEKS 01/23/25 01/23/25 pen injector ([employer]) lisdexamfetamine 40 mg capsule 40 mg PO QAM 01/23/25 01/23/25 quetiapine 50 mg tablet 50 mg PO HS 01/23/25 01/23/25 roflumilast 0.3 % topical foam 1 applic topical DAILY 01/23/25 01/23/25 (Zoryve) Previous Rx's Medication Instructions Recorded polyethylene glycol 3350 17 gram 17 g PO DAILY constipation #30 ea 08/30/24 oral powder packet (Miralax) pantoprazole 40 mg tablet,delayed 40 mg PO BID #60 tabs 11/17/24 release Results & Data (ED) Vital Signs Vital Signs - 24 hr 01/23/25 21:17 01/23/25 21:46 01/23/25 21:53 Temperature 36.8 C Temperature Source Temporal Artery Scan Pulse Rate 108 H 78 95 H Pulse Rate [Apical] Pulse Rhythm [Apical] Pulse Strength [Apical] Respiratory Rate 16 14 Respiratory Effort / Characteristics Respiratory Depth Respiratory Pattern Blood Pressure 137/80 Blood Pressure [Right Arm] Blood Pressure Mean 99 Blood Pressure Mean [Right Arm] Blood Pressure Position [Right Arm] Pulse Oximetry 98 98 Oxygen Delivery Method Room Air Room Air Sepsis Recent Fever Within 48 Hours No Sepsis New/Unexplained Change in Mental Status No Sepsis Action Taken by Nursing No Action Required 01/23/25 22:30 01/24/25 00:00 Temperature Temperature Source Pulse Rate 100 H Pulse Rate [Apical] 87 Pulse Rhythm [Apical] Regular Pulse Strength [Apical] Normal Respiratory Rate 18 18 Respiratory Effort / Characteristics Non-Labored Spontaneous Respiratory Depth Normal Respiratory Pattern Regular Blood Pressure 122/81 Blood Pressure [Right Arm] 120/88 Blood Pressure Mean 91 Blood Pressure Mean [Right Arm] 98 Blood Pressure Position [Right Arm] Semi-fowlers Pulse Oximetry 99 100 Oxygen Delivery Method Room Air Sepsis Recent Fever Within 48 Hours Sepsis New/Unexplained Change in Mental Status Sepsis Action Taken by Nursing Laboratory Data 01/23/25 21:51 01/23/25 21:51 Lab Results 01/23/25 Range/Units 21:51 WBC 9.76 (4.8-10.8) K/ul RBC 4.51 (4.20-5.40) M/uL Hgb 12.5 (12.0-16.0) g/dl Hct 38.3 (37.0-47.0) % MCV 84.9 (80.0-100.0) fL MCH 27.7 (25.0-34.0) pg MCHC 32.6 (32.0-36.0) g/dL RDW Std Deviation 38.9 (36.4-46.3) fL RDW Coeff of Tony 12.6 (11.5-14.5) % Plt Count 355 (130-400) K/uL MPV 8.9 L (9.4-12.4) fL Immature Gran % (Auto) 0.4 % Neut % (Auto) 66.0 % Lymph % (Auto) 25.6 % [place] % (Auto) 4.7 % Eos % (Auto) 2.8 % Baso % (Auto) 0.5 % Neut # (Auto) 6.44 (1.40-6.50) K/uL Lymph # (Auto) 2.50 (1.20-3.40) K/uL [place] # (Auto) 0.46 (0.11-0.59) K/uL Eos # (Auto) 0.27 (0.00-0.50) K/uL Baso # (Auto) 0.05 (0.00-0.20) K/uL Immature Gran # (Auto) 0.04 (0.01-0.20) K/uL Sodium 139 (136-145) mmol/L Potassium 3.7 (3.5-5.1) mmol/L Chloride 102 (98-107) mmol/L Carbon Dioxide 29 (21-32) mmol/L Anion Gap 8 (3-11) BUN 31 H (6-23) mg/dl Creatinine 0.74 (0.6-1.2) mg/dl Est Cr Clr Drug Dosing 71.0 ml/min eGFR 96.09 BUN/Creatinine Ratio 41.9 H (10-20) Glucose 89 (70-99(Fasting)) mg/dl Calcium 9.4 (8.6-10.3) mg/dl Total Bilirubin 0.3 (0.2-1.0) mg/dl AST 17 (13-39) U/L ALT 21 (7-52) U/L Alkaline Phosphatase 69 (34-104) U/L Total Protein 7.7 (6.0-8.3) gm/dl Albumin 4.1 (3.4-5.0) gm/dl Globulin 3.6 (2.5-4.0) gm/dl Albumin/Globulin Ratio 1.1 (0.9-2) Lipase 38 (11-82) U/L Urine Color Yellow Urine Appearance Cloudy A (Clear) Urine pH 8.0 H (4.5-7.5) Ur Specific [place] 1.014 (1.000-1.030) Urine Protein Negative (Negative) Urine Glucose (UA) Negative (Negative) Urine Ketones Negative (Negative) Urine Blood Negative (Negative) Urine Nitrite Negative (Negative) Urine Bilirubin Negative (Negative) Urine Urobilinogen Negative (Negative) Ur Leukocyte Esterase 1+ H (Negative) Urine WBC (Auto) 0-5 (0-5) /hpf Urine RBC (Auto) 0-2 (0-2) /hpf U Hyaline Cast (Auto) 0-2 (0-2) /lpf U Epithel Cells (Auto) 0-2 (0-2) /hpf Urine Bacteria (Auto) None Seen (None Seen) Urine Comment Discharge Plan Visit Data Chief Complaint: Rash Stated Complaint: RASH ED Provider: Hood Cody Discharge Problem: Vasculitis, Rash Condition: Fair Forms Stand Alone Forms: [facility] Prescriptions Prescriptions: No Action pantoprazole 40 mg tablet,delayed release (DR/EC) 40 mg PO BID Qty: 60 2RF montelukast [Singulair] 10 mg tablet 10 mg PO HS multivitamin Tablet 1 tab PO QAM cyclobenzaprine 10 mg tablet 10 mg PO HS PRN (Reason: muscle spasm) valacyclovir 500 mg Tablet 500 mg PO Q12H PRN (Reason: as directed) temazepam 22.5 mg capsule 22.5 mg PO HS minoxidil 2.5 mg tablet 2.5 mg PO QAM Wegovy 0.5 mg/0.5 mL pen injector 0.5 mg SUBCUT WK Rx Instructions: SATURDAYS alprazolam 1 mg tablet 1 mg PO BID PRN (Reason: anxiety attacks) ascorbic acid (vitamin C) [Vitamin C] 500 mg Tablet 500 mg PO QAM zinc gluconate 50 mg Tablet 50 mg PO QAM albuterol sulfate 90 mcg/actuation HFA aerosol inhaler 2 puff INHALATION Q6 PRN (Reason: Wheezing) fluticasone propionate 50 mcg/actuation spray,suspension 2 spray INTRANASAL QAM PRN (Reason: Congestion) Auvelity 45-105 mg tablet,IR,delayed rel,biphasic 1 tab PO BID Rx Instructions: take 6-8 hours apart polyethylene glycol 3350 [Miralax] 17 gram Powder In Packet 17 g PO DAILY Qty: 30 0RF clobetasol 0.05 % solution 1 applic TOPICAL DAILY Rx Instructions: APPLY TO SCALP Dupixent Pen 300 mg/2 mL pen injector 300 mg SUBCUT .EVERY 2 WEEKS Rx Instructions: EVERY OTHER SATURDAY Zoryve 0.3 % foam 1 applic TOPICAL DAILY quetiapine 50 mg tablet 50 mg PO HS lisdexamfetamine 40 mg capsule 40 mg PO QAM Auvelity 45-105 mg tablet,IR,delayed rel,biphasic 1 tab PO BID Referrals Referrals: Andressa Lees DO [Primary Care Provider] -
[2025-01-23 22:11] LABS: Hematocrit (blood only) 38.3 % (37.0-47.0); Hemoglobin 12.5 g/dl (12.0-16.0); Immature Granulocytes # (auto) 0.04 K/uL (0.01-0.20); Immature Granulocytes % (auto) 0.4 %; Mean Corpuscular Hemoglobin 27.7 pg (25.0-34.0); Mean Corpuscular Volume 84.9 fL (80.0-100.0); Platelet Count 355 K/uL (130-400); RDW Standard Deviation 38.9 fL (36.4-46.3); Red Blood Count 4.51 M/uL (4.20-5.40); White Blood Count 9.76 K/ul (4.8-10.8)
[2025-01-23 22:21] LABS: Appearance Urine Cloudy (Clear); Bacteria Urine Automated None Seen (None Seen); Cast Urine Automated 0-2 /lpf (0-2); Epithelial Cell Urine Auto 0-2 /hpf (0-2); Glucose Urine UA Negative (Negative); RBC Urine Automated 0-2 /hpf (0-2); WBC Urine Automated 0-5 /hpf (0-5)
[2025-01-23 22:34] LABS: Alanine Aminotransferase 21.0 U/L (7-52); Albumin Globulin Ratio 1.1 (0.9-2); Alkaline Phosphatase 69.0 U/L (34-104); Anion Gap 8.0 (3-11); Bilirubin,Total 0.3 mg/dl (0.2-1.0); Blood Urea Nitrogen 31.0 mg/dl (6-23); Calcium 9.4 mg/dl (8.6-10.3); Carbon Dioxide 29.0 mmol/L (21-32); Chloride 102.0 mmol/L (98-107); Creatinine Clr Calc Pharmacy 71.0 ml/min; Globulin 3.6 gm/dl (2.5-4.0); Glucose 89.0 mg/dl (70-99(Fasting)); Lipase 38.0 U/L (11-82); Potassium 3.7 mmol/L (3.5-5.1); Sodium 139.0 mmol/L (136-145); Total Protein 7.7 gm/dl (6.0-8.3)
[2025-01-24] MEDS: diphenhydrAMINE 50 MG/ML VIAL IV STA (00:45)
--- NOTE | 2025-01-24 01:30 | History & Physical Report ---
Date of Service January 24, 2025 Assessment & Plan (1) Rash: Plan: 54-year-old female with past medical history significant for hypertension, seborrheic dermatitis, backache, history of tobacco use, obsessive-compulsive disorder, depression with anxiety, ADHD, presents with a diffuse rash. Patient noticed rash on her legs and now mostly includes her extremities and trunk. Rash is blotchy macular rash. Denies any itching. Has some burning sensation. Afebrile. Feels some short of breath. Denies any chest pain. No nausea,no abdominal pain. No headache currently. Has allergies. She follows with [facility] dermatology for scalp psoriasis, seborrheic dermatitis and atopic dermatitis. She is on Dupixent shots, but states not helping much. 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 History of Present Illness Chief Complaint: Diffuse rash Primary Care Provider: Andressa Lees DO 54-year-old female with past medical history significant for hypertension, seborrheic dermatitis, backache, history of tobacco use, obsessive-compulsive disorder, depression with anxiety, ADHD, presents with a diffuse rash. Patient noticed rash on her legs and now mostly includes her extremities and trunk. Rash is blotchy macular rash. Denies any itching. Has some burning sensation. Afebrile. Feels some short of breath. Denies any chest pain. No nausea,no abdominal pain. No headache currently. Has allergies. She follows with [facility] dermatology for scalp psoriasis, seborrheic dermatitis and atopic dermatitis. She is on Dupixent shots, but states not helping much. Past medical history. As mentioned above Past surgical history. Colonoscopy. Laparoscopic cholecystectomy. Injection of lumbosacral spine. Ovarian cystectomy laparoscopic. Social history. . Smokes 0.5 pack a day for 33 years. Alcohol 1 glass of wine daily. No drug use. Social history. Maternal grandfather had diabetes. Father had heart disorder. Allergies Allergy/AdvReac Type Severity Reaction Status Date / Time tramadol Allergy Severe SHORT OF Verified 01/13/25 10:05 BREATH hydromorphone [From Dilaudid] Allergy Intermediate RASH/VOMITI Verified 01/13/25 10:05 NG latex Allergy Intermediate ITCHING Verified 01/13/25 10:05 morphine Allergy Intermediate Rash and Verified 01/13/25 10:05 nausea and vomiting Home Medications Medication Instructions Recorded Confirmed Type montelukast 10 mg tablet 10 mg PO HS 03/22/19 01/23/25 History (Singulair) cyclobenzaprine 10 mg tablet 10 mg PO HS PRN muscle spasm 11/12/22 01/23/25 History multivitamin 1 tab PO QAM 11/12/22 01/23/25 History valacyclovir 500 mg tablet 500 mg PO Q12H PRN as directed 11/12/22 01/23/25 History albuterol sulfate 90 mcg/actuation 2 puff inhalation Q6 PRN Wheezing 08/27/24 01/23/25 History aerosol inhaler alprazolam 1 mg tablet 1 mg PO BID PRN anxiety attacks 08/27/24 01/23/25 History ascorbic acid (vitamin C) 500 mg 500 mg PO QAM 08/27/24 01/23/25 History tablet (Vitamin C) dextromethorphan IR 45 1 tab PO BID 08/27/24 01/23/25 History mg-bupropion ER 105 mg biphasic tablet (Auvelity) fluticasone propionate 50 2 spray intranasal QAM PRN 08/27/24 01/23/25 History mcg/actuation nasal Congestion spray,suspension minoxidil 2.5 mg tablet 2.5 mg PO QAM 08/27/24 01/23/25 History semaglutide (weight loss) 0.5 0.5 mg subcut WK 08/27/24 01/23/25 History mg/0.5 mL subcutaneous pen injector (Aaron) temazepam 22.5 mg capsule 22.5 mg PO HS Sleep 08/27/24 01/23/25 History zinc gluconate 50 mg tablet 50 mg PO QAM 08/27/24 01/23/25 History polyethylene glycol 3350 17 gram 17 g PO DAILY constipation #30 ea 08/30/24 01/23/25 Rx oral powder packet (Miralax) pantoprazole 40 mg tablet,delayed 40 mg PO BID #60 tabs 11/17/24 01/23/25 Rx release clobetasol 0.05 % scalp solution 1 applic topical DAILY 01/23/25 01/23/25 History dextromethorphan IR 45 1 tab PO BID 01/23/25 01/23/25 History mg-bupropion ER 105 mg biphasic tablet (Auvelity) dupilumab 300 mg/2 mL subcutaneous 300 mg subcut .EVERY 2 WEEKS 01/23/25 01/23/25 History pen injector (Dupixent) lisdexamfetamine 40 mg capsule 40 mg PO QAM 01/23/25 01/23/25 History quetiapine 50 mg tablet 50 mg PO HS 01/23/25 01/23/25 History roflumilast 0.3 % topical foam 1 applic topical DAILY 01/23/25 01/23/25 History (Zoryve) Past Med/Surg History Problem List (Updated 01/24/25 @ 00:25 by Hood Cody DO) Rash (Acute) Vasculitis (Acute) Acid reflux Liver lesion Constipation (Acute) Sigmoid diverticulitis (Acute) Lumbar disc herniation with radiculopathy Insomnia Fall (Acute) Contusion of multiple sites (Acute) Contusion of multiple sites (Acute) Medical History Depression Left lumbar radiculopathy Social History Smoking Status: Former smoker Second Hand Exposure: No; Do You Dip or Chew Tobacco: No; Hx Alcohol Use: No Hx Substance Use: No Preferred Language: Puerto Rican Communication Ability: Effective Developer Architect Required: No Beliefs That Will Affect Care: None Current Living Situation: Spouse Current Living Situation Comment: lives in split level home with Feels Safe at Home: Yes Safety Concerns: Feels Safe At This Time Assistive Devices: Cane and Walker Review of Systems Review of Systems: All systems reviewed & are unremarkable except as noted in HPI & below Physical Exam Physical Exam: General- Not in distress Head- atraumatic Eyes- PERRL. ENT- oropharynx clear Neck- supple, no JVD. Lungs- clear to auscultation no wheezing or crackles Heart- regular rate and rhythm; no murmur, no gallop. Abdomen- normal bowel sounds, soft, nontender, no distension Extremities- no pretibial edema, moves extremities Neuro- alert, oriented PERRL, no facial palsy; no dysarthria; moves extremities Skin-diffuse blotchy circular/petechial rash Results & Data Results & Data Vital Signs (Past 12 Hours) Vital Signs Temp Pulse Pulse Resp BP BP Pulse Ox 01/24/25 00:00 87 18 120/88 100 01/23/25 22:30 100 H 18 122/81 99 01/23/25 21:53 95 H 01/23/25 21:46 78 14 98 01/23/25 21:17 36.8 C 108 H 16 137/80 98 O2 Del Method 01/24/25 00:00 Room Air 01/23/25 22:30 01/23/25 21:53 01/23/25 21:46 Room Air 01/23/25 21:17 Room Air Diagnostic Findings Laboratory Results WBC 9.76 K/ul (4.8-10.8) 01/23/25 21:51 RBC 4.51 M/uL (4.20-5.40) 01/23/25 21:51 Hgb 12.5 g/dl (12.0-16.0) 01/23/25 21:51 Hct 38.3 % (37.0-47.0) 01/23/25 21:51 MCV 84.9 fL (80.0-100.0) 01/23/25 21:51 MCH 27.7 pg (25.0-34.0) 01/23/25 21:51 MCHC 32.6 g/dL (32.0-36.0) 01/23/25 21:51 RDW Std Deviation 38.9 fL (36.4-46.3) 01/23/25 21:51 RDW Coeff of Tony 12.6 % (11.5-14.5) 01/23/25 21:51 Plt Count 355 K/uL (130-400) 01/23/25 21:51 MPV 8.9 fL (9.4-12.4) L 01/23/25 21:51 Immature Gran % (Auto) 0.4 % 01/23/25 21:51 Neut % (Auto) 66.0 % 01/23/25 21:51 Lymph % (Auto) 25.6 % 01/23/25 21:51 [place] % (Auto) 4.7 % 01/23/25 21:51 Eos % (Auto) 2.8 % 01/23/25 21:51 Baso % (Auto) 0.5 % 01/23/25 21:51 Neut # (Auto) 6.44 K/uL (1.40-6.50) 01/23/25 21:51 Lymph # (Auto) 2.50 K/uL (1.20-3.40) 01/23/25 21:51 [place] # (Auto) 0.46 K/uL (0.11-0.59) 01/23/25 21:51 Eos # (Auto) 0.27 K/uL (0.00-0.50) 01/23/25 21:51 Baso # (Auto) 0.05 K/uL (0.00-0.20) 01/23/25 21:51 Immature Gran # (Auto) 0.04 K/uL (0.01-0.20) 01/23/25 21:51 Sodium 139 mmol/L (136-145) 01/23/25 21:51 Potassium 3.7 mmol/L (3.5-5.1) 01/23/25 21:51 Chloride 102 mmol/L (98-107) 01/23/25 21:51 Carbon Dioxide 29 mmol/L (21-32) 01/23/25 21:51 Anion Gap 8 (3-11) 01/23/25 21:51 BUN 31 mg/dl (6-23) H 01/23/25 21:51 Creatinine 0.74 mg/dl (0.6-1.2) 01/23/25 21:51 Est Cr Clr Drug Dosing 71.0 ml/min 01/23/25 21:51 eGFR 96.09 01/23/25 21:51 BUN/Creatinine Ratio 41.9 (10-20) H 01/23/25 21:51 Glucose 89 mg/dl (70-99(Fasting)) 01/23/25 21:51 Calcium 9.4 mg/dl (8.6-10.3) 01/23/25 21:51 Total Bilirubin 0.3 mg/dl (0.2-1.0) 01/23/25 21:51 AST 17 U/L (13-39) 01/23/25 21:51 ALT 21 U/L (7-52) 01/23/25 21:51 Alkaline Phosphatase 69 U/L (34-104) 01/23/25 21:51 Total Protein 7.7 gm/dl (6.0-8.3) 01/23/25 21:51 Albumin 4.1 gm/dl (3.4-5.0) 01/23/25 21:51 Globulin 3.6 gm/dl (2.5-4.0) 01/23/25 21:51 Albumin/Globulin Ratio 1.1 (0.9-2) 01/23/25 21:51 Lipase 38 U/L (11-82) 01/23/25 21:51 Urine Color Yellow 01/23/25 21:51 Urine Appearance Cloudy (Clear) A 01/23/25 21:51 Urine pH 8.0 (4.5-7.5) H 01/23/25 21:51 Ur Specific [place] 1.014 (1.000-1.030) 01/23/25 21:51 Urine Protein Negative (Negative) 01/23/25 21:51 Urine Glucose (UA) Negative (Negative) 01/23/25 21:51 Urine Ketones Negative (Negative) 01/23/25 21:51 Urine Blood Negative (Negative) 01/23/25 21:51 Urine Nitrite Negative (Negative) 01/23/25 21:51 Urine Bilirubin Negative (Negative) 01/23/25 21:51 Urine Urobilinogen Negative (Negative) 01/23/25 21:51 Ur Leukocyte Esterase 1+ (Negative) H 01/23/25 21:51 Urine WBC (Auto) 0-5 /hpf (0-5) 01/23/25 21:51 Urine RBC (Auto) 0-2 /hpf (0-2) 01/23/25 21:51 U Hyaline Cast (Auto) 0-2 /lpf (0-2) 01/23/25 21:51 U Epithel Cells (Auto) 0-2 /hpf (0-2) 01/23/25 21:51 Urine Bacteria (Auto) None Seen (None Seen) 01/23/25 21:51 Urine Comment 01/23/25 21:51 Code Status & VTE Plan VTE Prophylaxis Plan VTE Prophylaxis will be ordered: Yes
[2025-01-24] MEDS ORDERED: ACETAMINOPHEN 325 MG TAB PO PRN (05:02)
[2025-01-24] MEDS ORDERED: FLUTICASONE PROPIONATE NA SPR 16 GM BTL PRN (05:02)
[2025-01-24] MEDS ORDERED: ALBUTEROL HFA 8 GM INHALER INH PRN (05:02)
[2025-01-24 06:49] LABS: Hematocrit (blood only) 36.9 % (37.0-47.0); Hemoglobin 12.6 g/dl (12.0-16.0); Immature Granulocytes # (auto) 0.03 K/uL (0.01-0.20); Immature Granulocytes % (auto) 0.4 %; Mean Corpuscular Hemoglobin 28.8 pg (25.0-34.0); Mean Corpuscular Volume 84.2 fL (80.0-100.0); Platelet Count 312 K/uL (130-400); RDW Standard Deviation 37.9 fL (36.4-46.3); Red Blood Count 4.38 M/uL (4.20-5.40); White Blood Count 8.42 K/ul (4.8-10.8)
[2025-01-24 07:19] LABS: Anion Gap 8.0 (3-11); Blood Urea Nitrogen 23.0 mg/dl (6-23); Calcium 8.9 mg/dl (8.6-10.3); Carbon Dioxide 25.0 mmol/L (21-32); Chloride 107.0 mmol/L (98-107); Creatinine Clr Calc Pharmacy 79.6 ml/min; Glucose 118.0 mg/dl (70-99(Fasting)); Magnesium 2.1 mg/dl (1.7-2.4); Potassium 4.0 mmol/L (3.5-5.1); Sodium 140.0 mmol/L (136-145)
[2025-01-24] MEDS: POLYETHYLENE (MIRALAX) 17 GM PACK PO PRN (08:30)
[2025-01-24] MEDS: ENOXAPARIN INJ 40 MG/0.4 ML SYR SQ SCH (08:31)
[2025-01-24] MEDS: MULTIVITAMIN TAB PO SCH (08:31)
[2025-01-24] MEDS: ASCORBIC ACID 500 MG TAB PO SCH (08:31)
[2025-01-24] MEDS ORDERED: BUPROPION PO SCH (09:00)
[2025-01-24] MEDS ORDERED: DEXTROMETHORPHAN PO SCH (09:00)
[2025-01-24] MEDS ORDERED: [UNRECOGNIZED DRUG - OTHER] PO SCH (09:00)
--- NOTE | 2025-01-24 13:24 | Hospitalist Progress Note ---
Date of Service January 24, 2025 Assessment & Plan (1) Rash: Plan: 54-year-old female with past medical history significant for hypertension, seborrheic dermatitis, backache, history of tobacco use, obsessive-compulsive disorder, depression with anxiety, ADHD, presents with a diffuse rash. Patient noticed rash on her legs and now mostly includes her extremities and trunk. Rash is blotchy macular rash. Denies any itching. Has some burning sensation. Afebrile. Feels some short of breath. Denies any chest pain. No nausea,no abdominal pain. No headache currently. Has allergies. She follows with [facility] dermatology for scalp psoriasis, seborrheic dermatitis and atopic dermatitis. She is on Dupixent shots, but states not helping much. Diffuse rash-petechial and purpuric no evidence of skin break Involving bilateral lower extremities mainly No significant itching Significant lab findings where increase in ESR of 101 and CRP more than 4 all other labs were unremarkable Highly suggestive of vasculitis Will discuss with the patient and send relevant labs including HCV and HIV and also other connective tissue related test Received a dose of Solu-Medrol in the emergency room not showing any improvement Will get a dermatology consult and possible rheumatology consult down the line Awaiting CT of the chest Scalp psoriasis Atopic dermatitis Seborrheic dermatitis Lichen simplex chronicus On Dupixent shots and steroid creams On ketoconazole shampoo and zoryve Follows with dermatology Depression and anxiety ADHD Obsessive-compulsive disorder Continue home medications Telogen effluvium On minoxidil History of diverticulitis History of strep throat DVT prophylaxis Lovenox Disposition Medical floor Full code. Admission and Anticipated Discharge Date Admission Date: January 24, 2025 Subjective 01/24/2025 The patient was seen and examined in medical floor She has been complaining of generalized petechial/vasculitic rash for the last 3 to 3 days Mostly involving the bilateral lower extremities and extending up to the lower abdomen and upper extremities with 1 or 2 spots Complaining of extreme tiredness and also shortness of breath with exertion Denies any fever and chills, no urinary symptoms and no problem with bowel habit no neurological symptoms Review of Systems Review of Systems: All systems reviewed and are unremarkable except as noted below Physical Exam Physical Exam: Lying in bed very anxious but no acute distress Constitutional: + ill appearing and average body habitus Eyes: PERRL, conjunctivae normal, anicteric sclerae ENMT: external ear and nose normal, oropharynx normal Neck: trachea midline, no thyromegaly Respiratory: no respiratory distress Auscultation: lungs clear to auscultation bilaterally Cardiovascular: Rate/Rhythm: regular rate and regular rhythm; not tachycardic Heart Sounds: normal S1 and normal S2; no murmur Extremities: no edema Gastrointestinal (Abdomen): Inspection/Auscultation: normal bowel sounds; abdomen not distended Percussion/Palpation: abdomen soft; abdomen nontender Musculoskeletal: No acute arthritis involving any of the joint Skin: Generalized petechial rash involving the lower extremities and now spreading to the lower abdomen and upper extremities Neurologic: normal touch/pain/proprioception and moves all extremities; no focal motor deficits Psychiatric: A+Ox3, euthymic affect Lymphatic: no cervical or axillary lymphadenopathy Results & Data Results & Data Vital Signs (Past 12 Hours) Vital Signs Temp Pulse Pulse Resp BP BP Pulse Ox 01/24/25 10:16 01/24/25 07:32 36.6 C 87 16 101/64 98 01/24/25 05:03 36.5 C 96 H 16 111/71 98 01/24/25 04:18 01/24/25 04:00 98 H 18 125/87 98 01/24/25 02:00 102 H 18 122/86 98 O2 Del Method 01/24/25 10:16 Room Air 01/24/25 07:32 Room Air 01/24/25 05:03 Room Air 01/24/25 04:18 Room Air 01/24/25 04:00 Room Air 01/24/25 02:00 Room Air Laboratory Results Short CBC 01/23/25 01/24/25 Range/Units 21:51 06:39 WBC 9.76 8.42 (4.8-10.8) K/ul Hgb 12.5 12.6 (12.0-16.0) g/dl Hct 38.3 36.9 L (37.0-47.0) % Plt Count 355 312 (130-400) K/uL BMP 01/23/25 01/24/25 21:51 06:39 Sodium 139 140 Potassium 3.7 4.0 Chloride 102 107 Carbon Dioxide 29 25 BUN 31 H 23 Creatinine 0.74 0.61 Glucose 89 118 H Calcium 9.4 8.9 Liver Function 01/23/25 Range/Units 21:51 Total Bilirubin 0.3 (0.2-1.0) mg/dl AST 17 (13-39) U/L ALT 21 (7-52) U/L Alkaline Phosphatase 69 (34-104) U/L Albumin 4.1 (3.4-5.0) gm/dl Urine 01/23/25 Range/Units 21:51 Urine Color Yellow Urine Appearance Cloudy A (Clear) Urine pH 8.0 H (4.5-7.5) Ur Specific [place] 1.014 (1.000-1.030) Urine Protein Negative (Negative) Urine Glucose (UA) Negative (Negative) Medications Administered Current Inpatient Medications Acetaminophen (Acetaminophen 325 Mg Tab) 650 mg PO Q4H PRN PRN Reason: pain/fever Stop: 02/23/25 05:01 Albuterol (Albuterol Hfa 8 Gm Inhaler) 2 puffs INH Q6 PRN PRN Reason: Wheezing Stop: 02/23/25 05:01 Alprazolam (Alprazolam 0.5 Mg Tablet) 1 mg PO BID PRN PRN Reason: anxiety attacks Stop: 02/23/25 05:01 Ascorbic Acid (Ascorbic Acid 500 Mg Tab) 500 mg PO QAM GIFTY Stop: 02/23/25 08:59 Last Admin: 01/24/25 08:31 Dose: Not Given Enoxaparin Sodium (Enoxaparin Inj 40 Mg/0.4 Ml Syr) 40 mg SQ Q24H GIFTY Stop: 02/23/25 07:59 Last Admin: 01/24/25 08:31 Dose: Not Given Fluticasone Propionate (Fluticasone Propionate Na Spr 16 Gm Btl) 2 sprays NA QAM PRN PRN Reason: Congestion Stop: 02/23/25 05:01 Lorazepam (Lorazepam 0.5 Mg Tab) 1.5 mg PO HS GIFTY Stop: 02/23/25 20:59 Minoxidil (Minoxidil 2.5 Mg Tab) 2.5 mg PO QAM G[facility] Stop: 02/23/25 08:59 Last Admin: 01/24/25 08:30 Dose: 2.5 mg Miscellaneous (Clobetasol 0.05 % Solution - Order Awaiting Action) 1 each N/A QS GIFTY Stop: 02/23/25 07:59 Last Admin: 01/24/25 08:31 Dose: Not Given Miscellaneous (Auvelity 45-105mg - Order Awaiting Action) 1 each N/A QS [facility] Stop: 02/23/25 07:59 Last Admin: 01/24/25 08:32 Dose: Not Given Miscellaneous (Lisdexamfetamine 40 Mg - Order Awaiting Action) 1 each N/A QS GIFTY Stop: 02/23/25 07:59 Last Admin: 01/24/25 08:31 Dose: Not Given Miscellaneous (Roflumilast [Zoryve] 0.3 % Foam - Order Awaiting Action) 1 each N/A QS [facility] Stop: 02/23/25 07:59 Last Admin: 01/24/25 08:31 Dose: Not Given Montelukast Sodium (Montelukast Sodium 10 Mg Tablet) 10 mg PO [facility] Stop: 02/23/25 20:59 Multivitamins (Multivitamin Tab) 1 tab PO QAM [facility] Stop: 02/23/25 08:59 Last Admin: 01/24/25 08:31 Dose: Not Given Pantoprazole Sodium (Pantoprazole 40 Mg Tab) 40 mg PO BID [facility] Stop: 02/23/25 08:59 Last Admin: 01/24/25 08:31 Dose: Not Given Polyethylene Glycol (Polyethylene (Miralax) 17 Gm Pack) 17 gm PO DAILY PRN PRN Reason: Constipation Stop: 02/23/25 05:01 Last Admin: 01/24/25 08:30 Dose: 17 gm Quetiapine Fumarate (Quetiapine Fumarate 25 Mg Tablet) 50 mg PO [facility] Stop: 02/23/25 20:59
--- NOTE | 2025-01-24 14:08 | CT Scan Report ---
Exam: CT chest diagnostic without contrast. Reason for exam: Shortness of breath. Previous studies: Chest radiograph 08/27/2024 FINDINGS: Both lung siegel remain clear and well aerated without active pulmonary nodule, infiltrate or mass lesion at this time. No pleural effusion or pneumothorax is noted. No significant abnormal hilar or mediastinal mass or adenopathy is noted. Calcification of the aortic arch seen Mild coronary artery calcification. No acute or active bony process is seen. Below the diaphragm the stomach appears moderately distended food materials. IMPRESSION: 1. Negative for acute cardiopulmonary disease. 2. Mild coronary artery calcification. Electronically signed by Madhu Jaimes 01-24-2025 2:07 PM
[2025-01-24 14:31] LABS: Chlamydia pneumoniae PCR Not Detected (NotDetected); Coronavirus 229E PCR Not Detected (NotDetected); Coronavirus CoV-2 (COVID19)PCR Not Detected (NotDetected); Coronavirus HKU1 PCR Not Detected (NotDetected); Coronavirus NL63 PCR Not Detected (NotDetected); Coronavirus OC43PCR Not Detected (NotDetected); Human Metapneumovirus PCR Not Detected (NotDetected); Parainfluenza Virus 1 PCR Not Detected (NotDetected); Parainfluenza Virus 2 PCR Not Detected (NotDetected); Parainfluenza Virus 3 PCR Not Detected (NotDetected); Parainfluenza Virus 4 PCR Not Detected (NotDetected); Respiratory Syncytial VirusPCR Not Detected (NotDetected); Rhinovirus/Enterovirus PCR Not Detected (NotDetected)
[2025-01-24 18:35] LABS: Hep B Surface Ag with confirm Negative (Negative); Treponema pallidum RflxConfirm Negative (Negative)
[2025-01-24 18:40] LABS: Hep C Ab Rflx HepCQuant RNA Negative (Negative)
[2025-01-24] MEDS: LORazepam 0.5 MG TAB PO SCH (21:27)
[2025-01-24] MEDS: MONTELUKAST SODIUM 10 MG TABLET PO SCH (21:27)
[2025-01-25 07:32] LABS: Hematocrit (blood only) 38.7 % (37.0-47.0); Hemoglobin 12.5 g/dl (12.0-16.0); Immature Granulocytes # (auto) 0.04 K/uL (0.01-0.20); Immature Granulocytes % (auto) 0.4 %; Mean Corpuscular Hemoglobin 27.5 pg (25.0-34.0); Mean Corpuscular Volume 85.2 fL (80.0-100.0); Platelet Count 347 K/uL (130-400); RDW Standard Deviation 38.6 fL (36.4-46.3); Red Blood Count 4.54 M/uL (4.20-5.40); White Blood Count 10.80 K/ul (4.8-10.8)
[2025-01-25 07:52] LABS: Alanine Aminotransferase 18.0 U/L (7-52); Albumin Globulin Ratio 1.1 (0.9-2); Alkaline Phosphatase 62.0 U/L (34-104); Anion Gap 7.0 (3-11); Bilirubin,Total 0.3 mg/dl (0.2-1.0); Blood Urea Nitrogen 21.0 mg/dl (6-23); Calcium 9.0 mg/dl (8.6-10.3); Carbon Dioxide 26.0 mmol/L (21-32); Chloride 108.0 mmol/L (98-107); Creatinine Clr Calc Pharmacy 79.6 ml/min; Globulin 3.4 gm/dl (2.5-4.0); Glucose 88.0 mg/dl (70-99(Fasting)); Potassium 4.1 mmol/L (3.5-5.1); Sodium 141.0 mmol/L (136-145); Total Protein 7.2 gm/dl (6.0-8.3)
--- NOTE | 2025-01-25 11:13 | Surgery Consultation ---
Date of Consultation January 25, 2025 Assessment & Plan (1) Rash: We will proceed with a punch biopsy of one of the lesions of her lower extremity Consent was obtained, risk discussed including bleeding, infection, need for further surgery Will place the dressing on that can be removed tomorrow evening The sutures should be removed in 10 to 14 days (2) Vasculitis: History of Present Illness Reason for Consultation: Skin biopsy Attending Physician: Jonathan Muñoz MD History of Present Illness This is a 54-year-old female who was admitted to the hospital yesterday with a diffuse macular rash of the lower extremities and trunk. She denies any pruritus. States she is never had this before. Denies any fevers or chills. Surgeries been consulted for a skin biopsy of one of the lesions for further evaluation. Denies any blood thinners. Allergies Allergy/AdvReac Type Severity Reaction Status Date / Time tramadol Allergy Severe SHORT OF Verified 01/13/25 10:05 BREATH hydromorphone [From Dilaudid] Allergy Intermediate RASH/VOMITI Verified 01/13/25 10:05 NG latex Allergy Intermediate ITCHING Verified 01/13/25 10:05 morphine Allergy Intermediate Rash and Verified 01/13/25 10:05 nausea and vomiting Home Medications Medication Instructions Recorded Confirmed Type montelukast 10 mg tablet 10 mg PO HS 03/22/19 01/23/25 History (Singulair) cyclobenzaprine 10 mg tablet 10 mg PO HS PRN muscle spasm 11/12/22 01/23/25 History multivitamin 1 tab PO QAM 11/12/22 01/23/25 History valacyclovir 500 mg tablet 500 mg PO Q12H PRN as directed 11/12/22 01/23/25 H istory albuterol sulfate 90 mcg/actuation 2 puff inhalation Q6 PRN Wheezing 08/27/24 01/23/25 History aerosol inhaler alprazolam 1 mg tablet 1 mg PO BID PRN anxiety attacks 08/27/24 01/23/25 History ascorbic acid (vitamin C) 500 mg 500 mg PO QAM 08/27/24 01/23/25 History tablet (Vitamin C) dextromethorphan IR 45 1 tab PO BID 08/27/24 01/23/25 History mg-bupropion ER 105 mg biphasic tablet (Auvelity) fluticasone propionate 50 2 spray intranasal QAM PRN 08/27/24 01/23/25 History mcg/actuation nasal Congestion spray,suspension minoxidil 2.5 mg tablet 2.5 mg PO QAM 08/27/24 01/23/25 History semaglutide (weight loss) 0.5 0.5 mg subcut WK 08/27/24 01/23/25 History mg/0.5 mL subcutaneous pen injector (Wegovy) temazepam 22.5 mg capsule 22.5 mg PO HS Sleep 08/27/24 01/23/25 History zinc gluconate 50 mg tablet 50 mg PO QAM 08/27/24 01/23/25 History polyethylene glycol 3350 17 gram 17 g PO DAILY constipation #30 ea 08/30/24 01/23/25 Rx oral powder packet (Miralax) pantoprazole 40 mg tablet,delayed 40 mg PO BID #60 tabs 11/17/24 01/23/25 Rx release clobetasol 0.05 % scalp solution 1 applic topical DAILY 01/23/25 01/23/25 History dextromethorphan IR 45 1 tab PO BID 01/23/25 01/23/25 History mg-bupropion ER 105 mg biphasic tablet (Auvelity) dupilumab 300 mg/2 mL subcutaneous 300 mg subcut .EVERY 2 WEEKS 01/23/25 01/23/25 History pen injector (Dupixent) lisdexamfetamine 40 mg capsule 40 mg PO QAM 01/23/25 01/23/25 History quetiapine 50 mg tablet 50 mg PO HS 01/23/25 01/23/25 History roflumilast 0.3 % topical foam 1 applic topical DAILY 01/23/25 01/23/25 History (Zoryve) Patient History Medical History Depression Left lumbar radiculopathy Social History Smoking Status: Former smoker Second Hand Exposure: No; Do You Dip or Chew Tobacco: No; Hx Alcohol Use: No Hx Substance Use: No Preferred Language: Danish Communication Ability: Effective [employer] Secretary Required: No Beliefs That Will Affect Care: None Current Living Situation: Spouse Current Living Situation Comment: lives in split level home with Feels Safe at Home: Yes Assistive Devices: Cane and Walker Review of Systems Constitutional: no fever and no chills Eyes: no blind spots and no corrective lenses Ear, Nose, Mouth, Throat: no ear pain and no hearing loss Respiratory: no cough and no dyspnea Cardiovascular: no chest pain and no dyspnea on exertion Gastrointestinal: no abdominal pain, no nausea and no vomiting Genitourinary: no dysuria and no urinary urgency Musculoskeletal: no back pain and no neck pain Integumentary: + rash and + changing lesions Neurologic: no gait abnormality and no headache(s) Psychiatric: no behavioral changes and no depression Hematologic / Lymphatic: no easy bleeding and no easy bruising Physical Exam Constitutional: WD/WN, vitals as above Eyes: PERRL, conjunctivae normal, anicteric sclerae ENMT: external ear and nose normal, oropharynx normal Neck: trachea midline, no thyromegaly Respiratory: normal respiratory effort, lungs clear to auscultation Cardiovascular: RRR, no murmur, no edema Gastrointestinal (Abdomen): normal bowel sounds, soft, nontender, no hepatosplenomegaly Musculoskeletal: no cyanosis or clubbing, extremities motor strength 5/5 Skin: no rashes, warm and dry Diffuse maculopapular rash of the bilateral lower extremities as well as the trunk Neurologic: PERRL, EOMI, accommodation nl, no face palsy, no dysarthria Psychiatric: A+Ox3, euthymic affect Results & Data Vital Signs (Past 12 Hours) Vital Signs Temp Pulse Resp BP Pulse Ox O2 Del Method 01/25/25 06:59 36.7 C 83 18 117/72 99 Room Air PG Care Time/CCT Total # of Minutes Spent Total Time Spent with Patient: Total time spent is greater than 50% in coordination of care (as documented) at patient's floor/unit and/or counseling patient: Coding Level of Care Code 91236 IN/OBS CONSULT LVL 5,80M Diagnoses Rash R21 Vasculitis I77.6
--- NOTE | 2025-01-25 11:41 | Operative Report ---
PG Post Operative Report Pre & Post Diagnosis Pre-Op diagnosis: Rash postop diagnosis: rash I identified the patient and participated in the time-out.: Yes Procedure Punch biopsy of left lower extremity skin lesion/rash Surgeon Niraj Martinez DO [employer] Chante Manzanares PA-C Estimated Blood Loss 1 Findings Consistent with Post-Op Diagnosis Specimens Left lower extremity punch biopsy to pathology Drains None Anesthesia Type Local Complications none Indications 54-year-old female with a diffuse maculopapular rash of the bilateral lower e xtremities and trunk Description of Procedure Patient was placed in the supine position and her left lower extremity was prepped and draped in normal sterile fashion. After injection of local anesthesia of 1% lidocaine with epinephrine a 3 mm punch biopsy tool was used to excise one of the lesion is in its entirety. This was then closed with a single 4-0 nylon simple interrupted suture. Sterile dressing was applied. Patient tolerated the procedure well. I attest to the content of the Intraoperative Record and any orders documented therein. Any exceptions are noted below.
--- NOTE | 2025-01-25 11:52 | Communication Note ---
Date of Service: January 25, 2025 Please send the Skin biopsy specimen for IgA staining as well. Thank you DR Trinity Muñoz
[2025-01-25] MEDS: LIDOCAINE 1%/EPINEPHRINE 1:100,000 50 ML VIAL INFIL ONE (12:17)
--- NOTE | 2025-01-25 16:49 | Hospitalist Progress Note ---
Date of Service January 25, 2025 Assessment & Plan (1) Rash: Plan: 54-year-old female with past medical history significant for hypertension, seborrheic dermatitis, backache, history of tobacco use, obsessive-compulsive disorder, depression with anxiety, ADHD, presents with a diffuse rash. Patient noticed rash on her legs and now mostly includes her extremities and trunk. Rash is blotchy macular rash. Denies any itching. Has some burning sensation. Afebrile. Feels some short of breath. Denies any chest pain. No nausea,no abdominal pain. No headache currently. Has allergies. She follows with [facility] dermatology for scalp psoriasis, seborrheic dermatitis and atopic dermatitis. She is on Dupixent shots, but states not helping much. Diffuse rash-petechial and purpuric no evidence of skin break Involving bilateral lower extremities mainly No significant itching Significant lab findings where increase in ESR of 101 and CRP more than 4 all other labs were unremarkable Highly suggestive of vasculitis Will discuss with the patient and send relevant labs including HCV and HIV and also other connective tissue related test Received a dose of Solu-Medrol in the emergency room not showing any improvement Will get a dermatology consult and possible rheumatology consult down the line CT of the chest came back negative for any relation and the patient remains stable without any significant symptoms Appreciate surgery input and biopsy of the skin lesions Discussed with the anesthesiologist/physician and she will be seen this afternoon and possible discharge after that Scalp psoriasis Atopic dermatitis Seborrheic dermatitis Lichen simplex chronicus On Dupixent shots and steroid creams On ketoconazole shampoo and zoryve Follows with dermatology Depression and anxiety ADHD Obsessive-compulsive disorder Continue home medications Telogen effluvium On minoxidil History of diverticulitis History of strep throat DVT prophylaxis Lovenox Disposition Medical floor Full code. Admission and Anticipated Discharge Date Admission Date: January 24, 2025 Subjective 01/24/2025 The patient was seen and examined in medical floor She has been complaining of generalized petechial/vasculitic rash for the last 3 to 3 days Mostly involving the bilateral lower extremities and extending up to the lower abdomen and upper extremities with 1 or 2 spots Complaining of extreme tiredness and also shortness of breath with exertion Denies any fever and chills, no urinary symptoms and no problem with bowel habit no neurological symptoms 01/25/2025 The patient was seen and examined in medical floor She remains stable and the rash seems to be gradually spreading without any acute symptoms Review of Systems Review of Systems: All systems reviewed and are unremarkable except as noted below Physical Exam Physical Exam: Lying in bed very anxious but no acute distress Constitutional: + ill appearing and average body habitus Eyes: PERRL, conjunctivae normal, anicteric sclerae ENMT: external ear and nose normal, oropharynx normal Neck: trachea midline, no thyromegaly Respiratory: no respiratory distress Auscultation: lungs clear to auscultat ion bilaterally Cardiovascular: Rate/Rhythm: regular rate and regular rhythm; not tachycardic Heart Sounds: normal S1 and normal S2; no murmur Extremities: no edema Gastrointestinal (Abdomen): Inspection/Auscultation: normal bowel sounds; abdomen not distended Percussion/Palpation: abdomen soft; abdomen nontender Skin: vasculitic rash involving the lower extremities mainly and now is spreading to abdomen and upper extremities Neurologic: normal touch/pain/proprioception and moves all extremities; no focal motor deficits Psychiatric: A+Ox3, euthymic affect Lymphatic: no cervical or axillary lymphadenopathy Results & Data Results & Data Vital Signs (Past 12 Hours) Vital Signs Temp Pulse Resp BP Pulse Ox O2 Del Method 01/25/25 14:55 37.3 C 104 H 18 101/61 97 Room Air 01/25/25 14:46 37.0 C 105 H 18 91/58 L 91 Room Air 01/25/25 06:59 36.7 C 83 18 117/72 99 Room Air Laboratory Results Short CBC 01/25/25 Range/Units 07:06 WBC 10.80 (4.8-10.8) K/ul Hgb 12.5 (12.0-16.0) g/dl Hct 38.7 (37.0-47.0) % Plt Count 347 (130-400) K/uL BMP 01/25/25 07:06 Sodium 141 Potassium 4.1 Chloride 108 H Carbon Dioxide 26 BUN 21 Creatinine 0.61 Glucose 88 Calcium 9.0 Liver Function 01/25/25 Range/Units 07:06 Total Bilirubin 0.3 (0.2-1.0) mg/dl AST 15 (13-39) U/L ALT 18 (7-52) U/L Alkaline Phosphatase 62 (34-104) U/L Albumin 3.8 (3.4-5.0) gm/dl Medications Administered Current Inpatient Medications Acetaminophen (Acetaminophen 325 Mg Tab) 650 mg PO Q4H PRN PRN Reason: pain/fever Stop: 02/23/25 05:01 Albuterol (Albuterol Hfa 8 Gm Inhaler) 2 puffs INH Q6 PRN PRN Reason: Wheezing Stop: 02/23/25 05:01 Alprazolam (Alprazolam 0.5 Mg Tablet) 1 mg PO BID PRN PRN Reason: anxiety attacks Stop: 02/23/25 05:01 Ascorbic Acid (Ascorbic Acid 500 Mg Tab) 500 mg PO QAM GIFTY Stop: 02/23/25 08:59 Last Admin: 01/25/25 08:56 Dose: 500 mg Enoxaparin Sodium (Enoxaparin Inj 40 Mg/0.4 Ml Syr) 40 mg SQ Q24H GIFTY Stop: 02/23/25 07:59 Last Admin: 01/25/25 08:53 Dose: Not Given Fluticasone Propionate (Fluticasone Propionate Na Spr 16 Gm Btl) 2 sprays NA QAM PRN PRN Reason: Congestion Stop: 02/23/25 05:01 Lorazepam (Lorazepam 0.5 Mg Tab) 1.5 mg PO HS GIFTY Stop: 02/23/25 20:59 Last Admin: 01/24/25 21:27 Dose: Not Given Minoxidil (Minoxidil 2.5 Mg Tab) 2.5 mg PO QAM G[facility]Y Stop: 02/23/25 08:59 Last Admin: 01/25/25 08:56 Dose: 2.5 mg Miscellaneous (Clobetasol 0.05 % Solution - Order Awaiting Action) 1 each N/A QS GIFTY Stop: 02/23/25 07:59 Last Admin: 01/25/25 16:04 Dose: Not Given Miscellaneous (Auvelity 45-105mg - Order Awaiting Action) 1 each N/A QS GIFTY Stop: 02/23/25 07:59 Last Admin: 01/25/25 16:04 Dose: Not Given Miscellaneous (Lisdexamfetamine 40 Mg - Order Awaiting Action) 1 each N/A QS GIFTY Stop: 02/23/25 07:59 Last Admin: 01/25/25 16:04 Dose: Not Given Miscellaneous (Roflumilast [Zoryve] 0.3 % Foam - Order Awaiting Action) 1 each N/A QS G[facility]Y Stop: 02/23/25 07:59 Last Admin: 01/25/25 16:04 Dose: Not Given Montelukast Sodium (Montelukast Sodium 10 Mg Tablet) 10 mg PO HS [facility] Stop: 02/23/25 20:59 Last Admin: 01/24/25 21:27 Dose: 10 mg Multivitamins (Multivitamin Tab) 1 tab PO QAM [facility] Stop: 02/23/25 08:59 Last Admin: 01/25/25 08:56 Dose: 1 tab Pantoprazole Sodium (Pantoprazole 40 Mg Tab) 40 mg PO BID [facility] Stop: 02/23/25 08:59 Last Admin: 01/25/25 08:56 Dose: 40 mg Polyethylene Glycol (Polyethylene (Miralax) 17 Gm Pack) 17 gm PO DAILY PRN PRN Reason: Constipation Stop: 02/23/25 05:01 Last Admin: 01/25/25 07:53 Dose: 17 gm Quetiapine Fumarate (Quetiapine Fumarate 25 Mg Tablet) 50 mg PO HS [facility] Stop: 02/23/25 20:59 Last Admin: 01/24/25 21:27 Dose: 50 mg
--- NOTE | 2025-01-25 17:44 | Rheumatology Consultation ---
Rheumatology Consultation DOS January 25, [address] 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 Her inflammatory markers are noted and raise concern for a systemic process. It is encouraging currently, however, that her pulmonary imaging and renal evaluation (BUN/creatinine, urinalysis) are not suggestive of systemic involvement. Monitor left upper extremity for any progressive numbness that may signal mononeuritis multiplex. Appreciate assistance of general surgery with obtaining a biopsy which we will stain for IgA. Recent strep infection raises concern for poststreptococcal process and hypocomplementemia can be seen in this process. Pleased that there is no evidence of glomerulonephritis currently. She has some palpable submandibular adenopathy which could be normal for her as a thin woman but bears monitoring and potential imaging via ultrasound. The additional lesions on the upper half of her body have some characteristics of enriquez angiomas but monitor for any evolving skin lesions consistent with the more typi jose purpuric lesions on the lower extremities. I recommend: Prednisone 40 mg daily Repeat BUN/creatinine, urinalysis, CRP, ESR with morning labs on 01/26 Monitor for any worsening GI symptoms (pain, nausea, black stools) and if present, consider mesenteric angiogram for evaluation of polyarteritis nodosa If morning labs are stable and she is otherwise clinically stable, consider discharge to home on oral prednisone with outpatient rheumatology follow-up as it will take several days for labs and biopsy results to become available Please contact me before discharge to help facilitate outpatient follow-up Please reach out with any questions or concerns History of Present Illness Attending Physician: Jonathan Muñoz MD History of Present Illness This patient is a 54-year-old woman who presents with lower extremity rash which began approximately 3 days ago. She began noticing difficulty with exhaustion on 01/20 with some shortness of breath as well. [place] as if she had some mild chest constriction to the point that she wanted to take off her bra to gain c omfort. Denies cough. No hemoptysis. Denies bloody nose. She had a strep infection weekend and then 4 weeks later, she had similar pharyngitis symptoms and was given prednisone. She notes some difficulty with blood in the vaginal area and admits that she has not had a menstrual cycle in 8 years. Denies fevers. She has had difficulty with nausea but nausea was improved after receiving steroids on 01/24/2025 upon presentation. Denies diarrhea or constipation at this point. Denies dark or black stools. Denies joint swelling. Denies history concerning for uveitis. Denies oral sores or ulcerations. Denies photosensitive rashes. Denies any sick contacts. Denies travel. She has had some back pain for about a week that was sudden onset. She has history of L-spine surgery and even contacted her orthopedic spine surgeon. On presentation, she was found to have elevated ESR and CRP. She feels as if there is some numbness at the left index finger which has been present for couple weeks. She feels as if new spots are developing on her abdomen, chest, and arms. Her lower extremity lesions are nontender and are nonpruritic. Allergies Allergy/AdvReac Type Severity Reaction Status Date / Time tramadol Allergy Severe SHORT OF Verified 01/13/25 10:05 BREATH hydromorphone [From Dilaudid] Allergy Intermediate RASH/VOMITI Verified 01/13/25 10:05 NG latex Allergy Intermediate ITCHING Verified 01/13/25 10:05 morphine Allergy Intermediate Rash and Verified 01/13/25 10:05 nausea and vomiting Home Medications Medication Instructions Recorded Confirmed Type montelukast 10 mg tablet 10 mg PO HS 03/22/19 01/23/25 History (Singulair) cyclobenzaprine 10 mg tablet 10 mg PO HS PRN muscle spasm 11/12/22 01/23/25 History multivitamin 1 tab PO QAM 11/12/22 01/23/25 History valacyclovir 500 mg tablet 500 mg PO Q12H PRN as directed 11/12/22 01/23/25 History albuterol sulfate 90 mcg/actuation 2 puff inhalation Q6 PRN Wheezing 08/27/24 01/23/25 History aerosol inhaler alprazolam 1 mg tablet 1 mg PO BID PRN anxiety attacks 08/27/24 01/23/25 History ascorbic acid (vitamin C) 500 mg 500 mg PO QAM 08/27/24 01/23/25 History tablet (Vitamin C) dextromethorphan IR 45 1 tab PO BID 08/27/24 01/23/25 History mg-bupropion ER 105 mg biphasic tablet (Auvelity) fluticasone propionate 50 2 spray intranasal QAM PRN 08/27/24 01/23/25 History mcg/actuation nasal Congestion spray,suspension minoxidil 2.5 mg tablet 2.5 mg PO QAM 08/27/24 01/23/25 History semaglutide (weight loss) 0.5 0.5 mg subcut WK 08/27/24 01/23/25 History mg/0.5 mL subcutaneous pen injector (Wegovy) temazepam 22.5 mg capsule 22.5 mg PO HS Sleep 08/27/24 01/23/25 History zinc gluconate 50 mg tablet 50 mg PO QAM 08/27/24 01/23/25 History polyethylene glycol 3350 17 gram 17 g PO DAILY constipation #30 ea 08/30/24 01/23/25 Rx oral powder packet (Miralax) clobetasol 0.05 % scalp solution 1 applic topical DAILY 01/23/25 01/23/25 History dextromethorphan IR 45 1 tab PO BID 01/23/25 01/23/25 History mg-bupropion ER 105 mg biphasic tablet (Auvelity) dupilumab 300 mg/2 mL subcutaneous 300 mg subcut .EVERY 2 WEEKS 01/23/25 01/23/25 History pen injector (Dupixent) lisdexamfetamine 40 mg capsule 40 mg PO QAM 01/23/25 01/23/25 History quetiapine 50 mg tablet 50 mg PO HS 01/23/25 01/23/25 History roflumilast 0.3 % topical foam 1 applic topical DAILY 01/23/25 01/23/25 History (Zoryve) pantoprazole 40 mg tablet,delayed 40 mg PO BID #60 tabs 01/25/25 Rx release Patient History Medical History Depression Left lumbar radiculopathy Social History Smoking Status: Former smoker Second Hand Exposure: No; Do You Dip or Chew Tobacco: No; Hx Alcohol Use: No Hx Substance Use: No Preferred Language: Vietnamese Communication Ability: Effective Police Patrol Officer Required: No Beliefs That Will Affect Care: None Current Living Situation: Spouse Current Living Situation Comment: lives in split level home with Feels Safe at Home: Yes Assistive Devices: Cane, Raised Toilet Seat, Walker and Other Physical Exam Physical Exam: General: No acute distress Eyes: No scleritis. No splintering in the conjunctiva Mouth: No oral ulcerations. Adequate moisture Cardiovascular: Heart regular, no rubs. No pronounced murmur. Pulmonary: Clear to auscultation Abdomen: Soft, nontender Skin: Purpuric lesions lower extremity bilaterally. She reports some lesions on her abdomen which look more consistent with enriquez angiomas. There is coalescent collection of lesions at the right anterior knee. Do not identify any splinter hemorrhages in the nailbeds of fingers or toes. Musculoskeletal: No synovitis. No effusions Results & Data Vital Signs (Past 12 Hours) Vital Signs Temp Pulse Resp BP Pulse Ox O2 Del Method 01/25/25 14:55 37.3 C 104 H 18 101/61 97 Room Air 01/25/25 14:46 37.0 C 105 H 18 91/58 L 91 Room Air 01/25/25 06:59 36.7 C 83 18 117/72 99 Room Air Diagnostic Findings Urinalysis: Negative blood, negative protein CT of chest: No infiltrative lesions Results CMP Results: Sodium 141 mmol/L (136-145) 01/25/25 Potassium 4.1 mmol/L (3.5-5.1) 01/25/25 Chloride 108 mmol/L (98-107) H 01/25/25 Carbon Dioxide 26 mmol/L (21-32) 01/25/25 Anion Gap 7 (3-11) 01/25/25 BUN 21 mg/dl (6-23) 01/25/25 Creatinine 0.61 mg/dl (0.6-1.2) 01/25/25 eGFR 106.17 01/25/25 Est GFR ( Amer) 99.1 ml/min 06/06/23 Est GFR (Non-Af Amer) 85.5 ml/min 06/06/23 BUN/Creatinine Ratio 34.4 (10-20) H 01/25/25 Glucose 88 mg/dl (70-99(Fasting)) 01/25/25 Calcium 9.0 mg/dl (8.6-10.3) 01/25/25 Phosphorus 1.7 mg/dl (2.5-4.9) L 03/22/19 Total Bilirubin 0.3 mg/dl (0.2-1.0) 01/25/25 Direct Bilirubin 0.1 mg/dl (0-0.2) 03/22/19 AST 15 U/L (13-39) 01/25/25 ALT 18 U/L (7-52) 01/25/25 Alkaline Phosphatase 62 U/L (34-104) 01/25/25 Total Protein 7.2 gm/dl (6.0-8.3) 01/25/25 Albumin 3.8 gm/dl (3.4-5.0) 01/25/25 Globulin 3.4 gm/dl (2.5-4.0) 01/25/25 Albumin/Globulin Ratio 1.1 (0.9-2) 01/25/25 Results Rheum Results - ESR: ESR 101 mm/hr (0-30) H 01/24/25 06:39 Results Rheum Results - CRP: CRP 3.57 mg/dl (0-0.5) H 01/24/25 06:39 Results CBC w Diff Results: RBC 4.54 M/uL (4.20-5.40) 01/25/25 WBC 10.80 K/ul (4.8-10.8) 01/25/25 Hgb 12.5 g/dl (12.0-16.0) 01/25/25 Hct 38.7 % (37.0-47.0) 01/25/25 MCV 85.2 fL (80.0-100.0) 01/25/25 MCH 27.5 pg (25.0-34.0) 01/25/25 MCHC 32.3 g/dL (32.0-36.0) 01/25/25 RDW Standard Deviation 38.6 fL (36.4-46.3) 01/25/25 RDW Coefficient of Variation 12.5 % (11.5-14.5) 01/25/25 Plt Count 347 K/uL (130-400) 01/25/25 MPV 8.5 fL (9.4-12.4) L 01/25/25 Neutrophils (%) (Auto) 63.1 % 01/25/25 Lymphocytes (%) (Auto) 30.1 % 01/25/25 Monocytes # (Auto) 0.56 K/uL (0.11-0.59) 01/25/25 Eosinophils # (Auto) 0.08 K/uL (0.00-0.50) 01/25/25 Immature Granulocyte % (Auto) 0.4 % 01/25/25 Neutrophils # (Auto) 6.82 K/uL (1.40-6.50) H 01/25/25 Lymphocytes # (Auto) 3.25 K/uL (1.20-3.40) 01/25/25 Monocytes # (Auto) 0.56 K/uL (0.11-0.59) 01/25/25 Eosinophils # (Auto) 0.08 K/uL (0.00-0.50) 01/25/25 Basophils # (Auto) 0.05 K/uL (0.00-0.20) 01/25/25 Immature Granulocyte # (Auto) 0.04 K/uL (0.01-0.20) 5 PG Care Time/CCT Total # of Minutes Spent Total Time Spent with Patient: Total time spent is greater than 50% in coordination of care (as documented) at patient's floor/unit and/or counseling patient:65 Coding Level of Care Code 03825 IN/OBS CONSULT LVL 4,60M Diagnoses Vasculitis I77.6
[2025-01-25] MEDS: predniSONE 20 MG TAB PO SCH (18:19)
[2025-01-25 19:13] LABS: Appearance Urine Clear (Clear); Bacteria Urine Automated None Seen (None Seen); Cast Urine Automated 0-2 /lpf (0-2); Epithelial Cell Urine Auto 0-2 /hpf (0-2); Glucose Urine UA Negative (Negative); RBC Urine Automated 0-2 /hpf (0-2); WBC Urine Automated 0-5 /hpf (0-5)
[2025-01-26] MEDS: diphenhydrAMINE Capsule 25 MG CAP PO ONE (01:58)
[2025-01-26 07:09] LABS: Hematocrit (blood only) 39.3 % (37.0-47.0); Hemoglobin 13.1 g/dl (12.0-16.0); Immature Granulocytes # (auto) 0.04 K/uL (0.01-0.20); Immature Granulocytes % (auto) 0.4 %; Mean Corpuscular Hemoglobin 28.1 pg (25.0-34.0); Mean Corpuscular Volume 84.3 fL (80.0-100.0); Platelet Count 401 K/uL (130-400); RDW Standard Deviation 37.0 fL (36.4-46.3); Red Blood Count 4.66 M/uL (4.20-5.40); White Blood Count 9.47 K/ul (4.8-10.8)
[2025-01-26 07:29] VITALS: BP 107/72; PULSE 73; RESP 16; TEMP 98.6; O2SAT 96
[2025-01-26 07:30] LABS: Anion Gap 7.0 (3-11); Blood Urea Nitrogen 19.0 mg/dl (6-23); Calcium 9.2 mg/dl (8.6-10.3); Carbon Dioxide 28.0 mmol/L (21-32); Chloride 105.0 mmol/L (98-107); Creatinine Clr Calc Pharmacy 83.7 ml/min; Glucose 107.0 mg/dl (70-99(Fasting)); Potassium 4.0 mmol/L (3.5-5.1); Sodium 140.0 mmol/L (136-145)
--- NOTE | 2025-01-26 11:43 | Hospitalist Progress Note ---
Date of Service January 26, 2025 Assessment & Plan (1) Rash: Plan: 54-year-old female with past medical history significant for hypertension, seborrheic dermatitis, backache, history of tobacco use, obsessive-compulsive disorder, depression with anxiety, ADHD, presents with a diffuse rash. Patient noticed rash on her legs and now mostly includes her extremities and trunk. Rash is blotchy macular rash. Denies any itching. Has some burning sensation. Afebrile. Feels some short of breath. Denies any chest pain. No nausea,no abdominal pain. No headache currently. Has allergies. She follows with [facility] dermatology for scalp psoriasis, seborrheic dermatitis and atopic dermatitis. She is on Dupixent shots, but states not helping much. Vasculitis--POA Diffuse rash-petechial and purpuric no evidence of skin break ESR, CRP elevated No GI symptoms --Immunology rheum workup: Cryoglobulin, rheumatoid factor, ANCA, complement levels, antistreptolysin O antibody levels pending --Skin Biopsy pending -- IV Solu-Medrol transition to prednisone 40 mg daily --Appreciate rheumatology input: Discussed on 01/26/2025. Plan to discharge on prednisone 40 mg daily until follow-up as outpatient --Further management to be determined as outpatient based on pending results --Patient understands and agrees with the plan Scalp psoriasis Atopic dermatitis Seborrheic dermatitis Lichen simplex chronicus On Dupixent shots and steroid creams On ketoconazole shampoo and zoryve Follows with dermatology Depression and anxiety ADHD Obsessive-compulsive disorder Continue home medications Telogen effluvium On minoxidil History of diverticulitis History of strep throat DVT prophylaxis Lovenox SQ CODE STATUS Full code Disposition Home Admission and Anticipated Discharge Date Admission Date: January 24, 2025 Subjective Patient is seen and examined at bedside States having minimal rash on chest as well Also feels very tired today Discussed with rheumatology Dr. Torres today Feels intermittent dyspnea No other complaints Review of Systems Review of Systems: All systems reviewed & are unremarkable except as noted in Subjective Physical Exam Physical Exam: Physical Exam: Vitals signs as noted above General Appearance:Thin, frail, no apparent distress Head: normocephalic, Atraumatic Eyes: normal inspection, EOMI Neck: supple, Trachea midline Respiratory/Chest: Normal breath sounds, CTA, No accessory muscle use Cardiovascular: S1, S2, No murmur Abdomen/GI:Soft, Non tender, Bowel sounds present Extremities/Musculoskeletal:normal inspection, no edema Neurologic/Psych:AAOX3, grossly no focal neurological deficits Skin: normal color, warm, + purpuric lesions on lower extremities bilaterally, some lesions on abdomen, chest and upper extremities ? Hernandez hemangioma Results & Data Results & Data Vital Signs (Past 12 Hours) Vital Signs Temp Pulse Resp BP Pulse Ox O2 Del Method 01/26/25 07:02 37.0 C 73 16 107/72 96 Room Air Laboratory Results Short CBC 01/26/25 Range/Units 06:29 WBC 9.47 (4.8-10.8) K/ul Hgb 13.1 (12.0-16.0) g/dl Hct 39.3 (37.0-47.0) % Plt Count 401 H (130-400) K/uL BMP 01/26/25 06:29 Sodium 140 Potassium 4.0 Chloride 105 Carbon Dioxide 28 BUN 19 Creatinine 0.58 L Glucose 107 H Calcium 9.2 Urine 01/25/25 Range/Units 19:02 Urine Color Yellow Urine Appearance Clear (Clear) Urine pH 6.0 (4.5-7.5) Ur Specific [place] 1.005 (1.000-1.030) Urine Protein Negative (Negative) Urine Glucose (UA) Negative (Negative)
--- NOTE | 2025-01-26 12:08 | Discharge Summary ---
Date of Service January 26, 2025 Admission HPI Per Admitting Provider 54-year-old female with past medical history significant for hypertension, seborrheic dermatitis, backache, history of tobacco use, obsessive-compulsive disorder, depression with anxiety, ADHD, presents with a diffuse rash. Patient noticed rash on her legs and now mostly includes her extremities and trunk. Rash is blotchy macular rash. Denies any itching. Has some burning sensation. Afebrile. Feels some short of breath. Denies any chest pain. No nausea,no abdominal pain. No headache currently. Has allergies. She follows with [facility] [address] dermatology for scalp psoriasis, seborrheic dermatitis and atopic d ermatitis. She is on Dupixent shots, but states not helping much. Past medical history. As mentioned above Past surgical history. Colonoscopy. Laparoscopic cholecystectomy. Injection of lumbosacral spine. Ovarian cystectomy laparoscopic. Social history. . Smokes 0.5 pack a day for 33 years. Alcohol 1 glass of wine daily. No drug use. Social history. Maternal grandfather had diabetes. Father had heart disorder. Admission Exam Per Admitting Provider General- Not in distress Head- atraumatic Eyes- PERRL. ENT- oropharynx clear Neck- supple, no JVD. Lungs- clear to auscultation no wheezing or crackles Heart- regular rate and rhythm; no murmur, no gallop. Abdomen- normal bowel sounds, soft, nontender, no distension Extremities- no pretibial edema, moves extremities Neuro- alert, oriented PERRL, no facial palsy; no dysarthria; moves extremities Skin-diffuse blotchy circular/petechial rash Principal Diagnosis Vasculitis Discharge Data Allergies Allergy/AdvReac Type Severity Reaction Status Date / Time tramadol Allergy Severe SHORT OF Verified 01/13/25 10:05 BREATH hydromorphone [From Dilaudid] Allergy Intermediate RASH/VOMITI Verified 01/13/25 10:05 NG latex Allergy Intermediate ITCHING Verified 01/13/25 10:05 morphine Allergy Intermediate Rash and Verified 01/13/25 10:05 nausea and vomiting Consultations 01/23/25 22:40 ED Decision to Admit Stat 01/24/25 17:26 Consult Rheumatology Routine 01/25/25 10:14 Consult General Surgery Routine Procedures Performed Laboratory Results WBC 9.47 K/ul (4.8-10.8) 01/26/25 06: RBC 4.66 M/uL (4.20-5.40) 01/26/25 06: Hgb 13.1 g/dl (12.0-16.0) 01/26/25 06: Hct 39.3 % (37.0-47.0) 01/26/25 06: MCV 84.3 fL (80.0-100.0) 01/26/25 06: MCH 28.1 pg (25.0-34.0) 01/26/25 06: MCHC 33.3 g/dL (32.0-36.0) 01/26/25 06: RDW Std Deviation 37.0 fL (36.4-46.3) 01/26/25: RDW Coeff of Tony 12.3 % (11.5-14.5) 01/26/25: Plt Count 401 K/uL (130-400) H 01/26/25 06: MPV 8.8 fL (9.4-12.4) L 01/26/25 06: Immature Gran % (Auto) 0.4 % 01/26/25 06: Neut % (Auto) 79.6 % 01/26/25 06: Lymph % (Auto) 16.6 % 01/26/25 06: [place] % (Auto) 3.1 % 01/26/25 06: Eos % (Auto) 0.0 % 01/26/25 06: Baso % (Auto) 0.3 % 01/26/25: Neut # (Auto) 7.54 K/uL (1.40-6.50) H 01/26/25 06: Lymph # (Auto) 1.57 K/uL (1.20-3.40) 01/26/25 06: [place] # (Auto) 0.29 K/uL (0.11-0.59) 01/26/25 06: Eos # (Auto) 0.00 K/uL (0.00-0.50) 01/26/25 06: Baso # (Auto) 0.03 K/uL (0.00-0.20) 01/26/25 06: Immature Gran # (Auto) 0.04 K/uL (0.01-0.20) 01/26/25 06:29 Peripher Smr Path Cons 01/24/25 11:19 ESR 96 mm/hr (0-30) H 01/26/25 06:29 Sodium 140 mmol/L (136-145) 01/26/25 06:29 Potassium 4.0 mmol/L (3.5-5.1) 01/26/25 06:29 Chloride 105 mmol/L (98-107) 01/26/25 06:29 Carbon Dioxide 28 mmol/L (21-32) 01/26/25 06:29 Anion Gap 7 (3-11) 01/26/25 06:29 BUN 19 mg/dl (6-23) 01/26/25 06:29 Creatinine 0.58 mg/dl (0.6-1.2) L 01/26/25 06:29 Est Cr Clr Drug Dosing 83.7 ml/min 01/26/25 06:29 eGFR 107.47 01/26/25 06:29 BUN/Creatinine Ratio 32.8 (10-20) H 01/26/25 06:29 Glucose 107 mg/dl (70-99(Fasting)) H 01/26/25 06:29 Calcium 9.2 mg/dl (8.6-10.3) 01/26/25 06:29 Magnesium 2.1 mg/dl (1.7-2.4) 01/24/25 06:39 Total Bilirubin 0.3 mg/dl (0.2-1.0) 01/25/25 07:06 AST 15 U/L (13-39) 01/25/25 07:06 ALT 18 U/L (7-52) 01/25/25 07:06 Alkaline Phosphatase 62 U/L (34-104) 01/25/25 07:06 C-Reactive Protein 2.35 mg/dl (0-0.5) H 01/26/25 06:29 Total Protein 7.2 gm/dl (6.0-8.3) 01/25/25 07:06 Albumin 3.8 gm/dl (3.4-5.0) 01/25/25 07:06 Globulin 3.4 gm/dl (2.5-4.0) 01/25/25 07:06 Albumin/Globulin Ratio 1.1 (0.9-2) 01/25/25 07:06 Lipase 38 U/L (11-82) 01/23/25 21:51 Urine Color Yellow 01/25/25 19:02 Urine Appearance Clear (Clear) 01/25/25 19:02 Urine pH 6.0 (4.5-7.5) 01/25/25 19:02 Ur Specific [place] 1.005 (1.000-1.030) 01/25/25 19:02 Urine Protein Negative (Negative) 01/25/25 19:02 Urine Glucose (UA) Negative (Negative) 01/25/25 19:02 Urine Ketones Negative (Negative) 01/25/25 19:02 Urine Blood Negative (Negative) 01/25/25 19:02 Urine Nitrite Negative (Negative) 01/25/25 19:02 Urine Bilirubin Negative (Negative) 01/25/25 19:02 Urine Urobilinogen Negative (Negative) 01/25/25 19:02 Ur Leukocyte Esterase Trace (Negative) H 01/25/25 19:02 Urine WBC (Auto) 0-5 /hpf (0-5) 01/25/25 19:02 Urine RBC (Auto) 0-2 /hpf (0-2) 01/25/25 19:02 U Hyaline Cast (Auto) 0-2 /lpf (0-2) 01/25/25 19:02 U Epithel Cells (Auto) 0-2 /hpf (0-2) 01/25/25 19:02 Urine Bacteria (Auto) None Seen (None Seen) 01/25/25 19:02 Urine Comment 01/25/25 19:02 Treponema pallidum Ab Negative (Negative) 01/24/25 11:26 Adenovirus (PCR) Not Detected (NotDetected) 01/24/25 13:15 Anaplasma Smear See Comment 01/24/25 11:19 Babesia Smear See Comment 01/24/25 11:19 B. pertussis DNA (PCR) Not Detected (NotDetected) 01/24/25 13:15 B.parapertussis DNA PCR Not Detected (NotDetected) 01/24/25 13:15 Lyme Disease Screen Negative (Negative) 01/24/25 11:19 C. pneumoniae DNA (PCR) Not Detected (NotDetected) 01/24/25 13:15 Coronavirus OC43 (PCR) Not Detected (NotDetected) 01/24/25 13:15 Coronavirus HKU1 (PCR) Not Detected (NotDetected) 01/24/25 13:15 Coronavirus 229E (PCR) Not Detected (NotDetected) 01/24/25 13:15 SARS-CoV-2 (PCR) Not Detected (NotDetected) 01/24/25 13:15 Coronavirus NL63 (PCR) Not Detected (NotDetected) 01/24/25 13:15 Hep Bs Antigen Negative (Negative) 01/24/25 11:26 Hepatitis C Antibody Negative (Negative) 01/24/25 11:26 HIV 1&2 Ab/P24 Ag 4thGn Negative (Negative) 01/24/25 11:26 Human Metapneumovir PCR Not Detected (NotDetected) 01/24/25 13:15 Influenza Type A (PCR) Not Detected (NotDetected) 01/24/25 13:15 Influenza Type B (PCR) Not Detected (NotDetected) 01/24/25 13:15 M. pneumoniae (PCR) Not Detected (NotDetected) 01/24/25 13:15 Parainfluenza 1 (PCR) Not Detected (NotDetected) 01/24/25 13:15 Parainfluenza 2 (PCR) Not Detected (NotDetected) 01/24/25 13:15 Parainfluenza 3 (PCR) Not Detected (NotDetected) 01/24/25 13:15 Parainfluenza 4 (PCR) Not Detected (NotDetected) 01/24/25 13:15 RSV (PCR) Not Detected (NotDetected) 01/24/25 13:15 Resp Virus Cult Rapid Cancelled 01/24/25 13:15 Entero/Rhino (PCR) Not Detected (NotDetected) 01/24/25 13:15 Viral Specimen Source Cancelled 01/24/25 13:[address] 01/24/25 10:51 Exam: CT chest diagnostic without contrast. Reason for exam: Shortness of breath. Previous studies: Chest radiograph 08/27/2024 FINDINGS: Both lung siegel remain clear and well aerated without active pulmonary nodule, infiltrate or mass lesion at this time. No pleural effusion or pneumothorax is noted. No significant abnormal hilar or mediastinal mass or adenopathy is noted. Calcification of the aortic arch seen Mild coronary artery calcification. No acute or active bony process is seen. Below the diaphragm the stomach appears moderately distended food materials. IMPRESSION: 1. Negative for acute cardiopulmonary disease. 2. Mild coronary artery calcification. Electronically signed by Madhu Jaimes 01-24-2025 2:07 PM Ordered Studies 01/24/25 10:51 CT chest diagnostic wo con Urgent Hospital Course (1) Rash: 54-year-old female with past medical history significant for hypertension, seborrheic dermatitis, backache, history of tobacco use, obsessive-compulsive disorder, depression with anxiety, ADHD, presents with a diffuse rash. Patient noticed rash on her legs and now mostly includes her extremities and trunk. Rash is blotchy macular rash. Denies any itching. Has some burning sensation. Afebrile. Feels some short of breath. Denies any chest pain. No nausea,no abdominal pain. No headache currently. Has allergies. She follows with [facility] [address] dermatology for scalp psoriasis, seborrheic dermatitis and atopic dermatitis. She is on Dupixent shots, but states not helping much. Vasculitis--POA Diffuse rash-petechial and purpuric no evidence of skin break ESR, CRP elevated No GI symptoms --Immunology rheum workup: Cryoglobulin, rheumatoid factor, ANCA, complement levels, antistreptolysin O antibody levels pending --Skin Biopsy pending -- IV Solu-Medrol transition to prednisone 40 mg daily --Appreciate rheumatology input: Discussed on 01/26/2025. Plan to discharge on prednisone 40 mg daily until follow-up as outpatient --Further management to be determined as outpatient based on pending results --Patient understands and agrees with the plan Scalp psoriasis Atopic dermatitis Seborrheic dermatitis Lichen simplex chronicus On Dupixent shots and steroid creams On ketoconazole shampoo and zoryve Follows with dermatology Depression and anxiety ADHD Obsessive-compulsive disorder Continue home medications Telogen effluvium On minoxidil History of diverticulitis History of strep throat DVT prophylaxis Lovenox SQ CODE STATUS Full code Disposition Home Total Time Total Time Spent Total Time Spent (In Minutes): 53 minutes Discharge Plan Discharge Items Patient Disposition: Home - Self-Care Reason For Visit: diffuse rash Discharge Diagnosis: Vasculitis Condition on Discharge: Fair Activity: Per Instructions section Exercise/Sports: Wait until after follow-up appointment Non-emergency contact: Primary Care Provider and Specialist Call non-emergency contact if: you have any medication questions, your symptoms worsen, your pain is concerning for you and you have a fever Follow-up/Referrals: Niraj Martinez DO [Physician] - (follow up in the office in 10 days for suture removal) Andressa Lees DO [Primary Care Provider] - (Date & Time 02/01/2025 1:20 PM Provider: Andressa Lees DO [facility] ) Diet: Heart Healthy [facility] Attending Provider Instructions: --You have a suture in place in your left lower extremity that should be removed in the surgical clinic in 10-14 days. You may leave the wound open to air [employer] Provider Instructions: -- Follow-up with your primary care physician Dr. Lees on 02/01/25 at 1:20 Pm as schedule d --Follow-up with your business segment manager Dr. Torres on 02/03/25 at 8:30AM as scheduled --Follow-up with your surgeon Dr. Niraj Martinez as recommended -- Continue taking prednisone 40 mg daily until further recommendations from your business segment manager. --Your Immunology/rheumatological workup; skin biopsy results and blood cultures are pending at the time of discharge. Follow-up with your physician for results. Seek immediate medical attention if your symptoms reoccur or worsen Please review medication list provided on discharge for any medication changes as instructed. Please call if you have any questions or problems. You can reach a [facility] hospitalist on duty at [facility] 24 hours a day by calling [phone] Pending Studies at Discharge: Yes Stand-Alone Forms: My [facility], Smoking Cessation Medications and DC Order Prescriptions: New prednisone 20 mg Tablet 40 mg PO DAILY 14 Days Qty: 28 0RF Continued pantoprazole 40 mg tablet,delayed release (DR/EC) 40 mg PO BID Qty: 60 2RF montelukast [Singulair] 10 mg tablet 10 mg PO HS multivitamin Tablet 1 tab PO QAM cyclobenzaprine 10 mg tablet 10 mg PO HS PRN (Reason: muscle spasm) valacyclovir 500 mg Tablet 500 mg PO Q12H PRN (Reason: as directed) temazepam 22.5 mg capsule 22.5 mg PO HS minoxidil 2.5 mg tablet 2.5 mg PO QAM Wegovy 0.5 mg/0.5 mL pen injector 0.5 mg SUBCUT WK Rx Instructions: SATURDAYS alprazolam 1 mg tablet 1 mg PO BID PRN (Reason: anxiety attacks) ascorbic acid (vitamin C) [Vitamin C] 500 mg Tablet 500 mg PO QAM zinc gluconate 50 mg Tablet 50 mg PO QAM albuterol sulfate 90 mcg/actuation HFA aerosol inhaler 2 puff INHALATION Q6 PRN (Reason: Wheezing) fluticasone propionate 50 mcg/actuation spray,suspension 2 spray INTRANASAL QAM PRN (Reason: Congestion) Auvelity 45-105 mg tablet,IR,delayed rel,biphasic 1 tab PO BID Rx Instructions: take 6-8 hours apart polyethylene glycol 3350 [Miralax] 17 gram Powder In Packet 17 g PO DAILY Qty: 30 0RF clobetasol 0.05 % solution 1 applic TOPICAL DAILY Rx Instructions: APPLY TO SCALP Dupixent Pen 300 mg/2 mL pen injector 300 mg SUBCUT .EVERY 2 WEEKS Rx Instructions: EVERY OTHER SATURDAY Zoryve 0.3 % foam 1 applic TOPICAL DAILY quetiapine 50 mg tablet 50 mg PO HS lisdexamfetamine 40 mg capsule 40 mg PO QAM Auvelity 45-105 mg tablet,IR,delayed rel,biphasic 1 tab PO BID Discharge Orders: Discharge Order (Routine); Ordered 01/26/25 Ordered By: Efraín Medina Admission Data Admit Date/Time: 01/24/25 01:06 Attending Provider: Efraín Medina Admit Provider: Shimon Zepeda Primary Care Provider: Andressa Lees Other Providers: Shimon Zepeda; Supa Silva; Niraj Martinez
[2025-01-26 13:43] LABS: Hepatitis A Antibody IgM NON-REACTIVE (NON-REACTIVE); Hepatitis B Core Antibody IgM NON-REACTIVE (NON-REACTIVE)
[2025-01-31 22:07] LABS: Cryoglobulin, QL Negative (Negative)
--- NOTE | 2025-02-01 09:45 | Coding Query ---
CODING QUERY To promote full compliance with coding requirements relating to patient care, provider participation is requested in all cases of glass unloading equipment tender uncertainty. Please assist us with the question(s) below: Coding Question(s): Vasculitis is documented through the record and on the Discharge Summary. Please specify below, in your clinical opinion, regarding Vasculitis: ( ) Vasculitis, specified. Please Specify (X ) Vasculitis Unspecified Physician's Response(s): Thank you Loreto Cardona Principal Diagnosis: "that condition established after study, to be chiefly responsible for occasioning the admission of the patient to the hospital for care." Co-Existing Principal Diagnosis: "when two or more diagnoses equally meet the criteria for principal diagnosis as determined by the circumstances of admission, diagnostic work up, and/or therapy provided, and the Alphabetic Index, Tabular List, or another coding guideline does not provide sequencing direction, any one of the diagnoses may be sequenced first." "When the physician has documented what appears to be a current diagnosis in the body of the record, but has not included the diagnosis in the final diagnostic statement, the physician should be asked whether the diagnosis should be added." (Source Coding Clinic 2 QTR90. p3-4) IRVIN
[2025-02-01 12:26] LABS: Lupus Hex Phase (Rflxdonotord) Negative (Negative)
[2025-02-01 18:02] LABS: ANCA Screen Negative (Negative)
== END 2025-01-26 16:57 | disposition home or self-care (01) | DRG 547 ==
LOC: ED 21:16 → 3N 01-24 01:06 → SUATTDRO 01-24 01:06 → 3N 01-24 04:18